=== PATIENT | female | born 1950 | race Caucasian/White ===

== ENCOUNTER 2017-05-15 18:23 | Inpatient (IN) | payer MEDICARE, OTHER ==
[~2017-05-15] VITALS: Ht 162.6 cm; Wt 81.2 kg
[2017-05-15] MEDS ORDERED: LIDOCAINE 2% PF Vial for OR 5 ML VIAL. ONE (20:53)
[2017-05-15] MEDS ORDERED: PROPOFOL 20 ML IV ONE (20:53)
[2017-05-15] MEDS ORDERED: ROCURONIUM 50 MG/5 ML VIAL. ONE (20:54)
[2017-05-15] MEDS ORDERED: ONDANSETRON PF 4 MG/2 ML VIAL. ONE (20:54)
[2017-05-15] MEDS ORDERED: PHENYLEPHRINE in 0.9% NACL PF 1 MG/10 ML DISP.SYRIN. IV ONE (20:54)
[2017-05-15] MEDS ORDERED: fentaNYL PF VIAL 100 MCG/2 ML VIAL ONE ×2 (20:54→23:25)
[2017-05-15] MEDS ORDERED: DEXAMETHASONE SOD PHOS 20 MG/5 ML VIAL. ONE (20:54)
[2017-05-15] MEDS ORDERED: SUCCINYLCHOLINE 200 MG/10 ML VIAL. ONE (21:09)
--- NOTE | 2017-05-15 21:09 | PDOC1 ---
History and Physical Date of Admission Date of Admission DATE: 05/15/17 TIME: 20:58 Identification/Chief Complaint Chief Complaint RUQ pain Problems: Source Source: Chart review, Patient History of Present Illness History of Present Illness Shannon is a 66 yo O2 dependent female with a three day hx of fever, cough, SOA and abdominal pain. Denies nausea or vomiting. States that eating made "the pain worse". Seen in the [facility] ED where a CT was done showing changes consistent with acute cholecystitis. She is brought for cholecystectomy Past Medical History Cardiovascular: No pertinent hx Pulmonary: COPD, Other (O2 dependent) GI: No pertinent hx Psych: Anxiety, Depression Musculoskeletal: Osteoarthritis Renal/: No pertinent hx Past Surgical History Past Surgical History: Total knee replacement, Hysterectomy, Other (shoulder surgery) Family History Family History: No Significant Social History Smoke: Quit ALCOHOL: none Drugs: None Current Medications Current Medications Current Medications Propofol 20 ml @ As Directed STK-MED ONCE IV ; Start 05/15/17 at 20:53; Stop at 20:54; Status DC Lidocaine HCl (Lidocaine Pf 2% Vial) 5 ml STK-MED ONCE .ROUTE ; Start 05/15/17 at 20:53; Stop 05/15/17 at 20:54; Status DC Ondansetron HCl (Zofran) 4 mg STK-MED ONCE .ROUTE ; Start 05/15/17 at 20:54; Stop 05/15/17 at 20:55; Status DC Dexamethasone Sodium Phosphate (Decadron) 20 mg STK-MED ONCE .ROUTE ; Start at 20:54; Stop 05/15/17 at 20:55; Status DC Phenylephrine HCl 1 mg STK-MED ONCE IV ; Start 05/15/17 at 20:54; Stop 05/15/17 at 20:55; Status DC Fentanyl Citrate (Fentanyl 2ml Vial) 100 mcg STK-MED ONCE .ROUTE ; Start at 20:54; Stop 05/15/17 at 20:55; Status DC Rocuronium [place] (Zemuron) 50 mg STK-MED ONCE .ROUTE ; Start 05/15/17 at 20:54 ; Stop 05/15/17 at 20:55; Status DC Allergies Allergies: Coded Allergies: Codeine (Verified Allergy, 05/15/17) ROS General: YES: Other (fever) PSYCHOLOGICAL ROS: YES: Anxiety, Depression HEENT: YES: Visual Changes Respiratory: YES: Cough Gastrointestinal: Yes Abdominal Pain Musculoskeletal: Yes Other (chronic back pain, pain pump in place) Physical Exam General: Alert, moderate distress HEENT: Atraumatic, Other (poor dentition) Lungs: Other (tachypneic, occasional wheeze) Heart: other (increased rate) Breasts: Not examined Abdomen: Other (TTP in the RUQ) Extremities: Other (arthritic changes) Neuro: Normal speech Psych/Mental Status: Other (anxious) Images Images CT of abdomen and pelvis done at [facility] is reviewed VTE Prophylaxis Ordered VTE Prophylaxis Devices: Yes VTE Pharmacological Prophylaxi: No Assessment/Plan Assessment/Plan acute cholecystitis COPD l/s cholecystectomy Explained risks including but not limited to bleeding, infection, injury to bowel, liver or bile ducts with resultant bile leak or bile blockage. Also the possible need for an "open" procedure or diarrhea post op. She will proceed. ALLEN BARTON MD May 15, 2017 21:09
[2017-05-15] MEDS ORDERED: IV RINGERS,LACTATED 1000ML 1,000 ML IV SCH (21:10)
[2017-05-15] MEDS ORDERED: PROCHLORPERAZINE 10 MG/2 ML VIAL. IV PRN (21:15)
[2017-05-15] MEDS ORDERED: LIDOCAINE 1% 1 ML SYRINGE. ID PRN (21:15)
[2017-05-15] MEDS ORDERED: ONDANSETRON PF 4 MG/2 ML VIAL. IV PRN ×3 (21:15→23:15)
[2017-05-15] MEDS ORDERED: fentaNYL PF VIAL 100 MCG/2 ML VIAL IV PRN (21:15)
[2017-05-15] MEDS ORDERED: GLUCAGON,HUMAN RECOMBINANT 1 MG/ML VIAL. ONE (21:24)
[2017-05-15] MEDS ORDERED: IOHEXOL 300 MG/ML 50 ML VIAL. ONE (21:24)
[2017-05-15] MEDS ORDERED: BUPIVACAINE-EPI 0.5%-1:200000 50 ML VIAL. ONE (21:24)
[2017-05-15] MEDS ORDERED: SURGICEL HEMOSTAT 4X8 EACH. ONE (21:24)
[2017-05-15] MEDS: IV NORMAL SALINE 1000ML BAG 1,000 ML IV SCH (21:30)
[2017-05-15] MEDS ORDERED: ACETAMINOPHEN 325 MG TABLET. PO PRN (21:30)
[2017-05-15] MEDS ORDERED: ALBUTEROL SULFATE 2.5 MG/3 ML NEBU. NEB PRN (21:30)
[2017-05-15] MEDS ORDERED: hydrALAZINE 20 MG/ML VIAL. IVP PRN (21:30)
[2017-05-15] MEDS: POTASSIUM CHLORIDE 10MEQ 100 ML IV SCH ×2 (22:00→23:00)
[2017-05-15] MEDS ORDERED: NEOSTIGMINE METHYLSULFATE 5 MG/5 ML SYRINGE. ONE (22:39)
[2017-05-15] MEDS ORDERED: GLYCOPYRROLATE 1 MG/5 ML VIAL. ONE (22:40)
[2017-05-15] MEDS ORDERED: DESFLURANE 61 TO 120 MINUTES IH ONE (22:46)
[2017-05-15] MEDS ORDERED: DEXTROSE 50% 25 GM / 50ML DISP.SYRIN. IV PRN (23:15)
[2017-05-15] MEDS ORDERED: 0.9 % SODIUM CHLORIDE 10 ML DISP.SYRIN. IV PRN (23:15)
[2017-05-15] MEDS ORDERED: diphenhydrAMINE 50 MG/ML VIAL IV PRN (23:15)
[2017-05-15] MEDS ORDERED: ACETAMINOPHEN 500 MG TABLET PO PRN (23:15)
[2017-05-15] MEDS ORDERED: diphenhydrAMINE HCL 25 MG CAPSULE PO PRN (23:15)
[2017-05-15] MEDS: fentaNYL PF VIAL 100 MCG/2 ML VIAL IV PRN ×4 (23:17→23:55)
--- NOTE | 2017-05-15 23:24 | PDOC ---
BRIEF OPERATIVE NOTE Date: May 15, 2017 Pre-Op Diagnosis acute cholecystitis Post-Op Diagnosis gangrenous cholecystitis Procedure Performed l/s cholecystectomy with cholangiograms Surgeon Dominguez Russell CORN DETASSELER Anesthesia Type: General Blood Loss 50cc IV Fluid 500cc Urine Output 75cc Specimens Obtained GB Findings gangrenous cholecystitis, normal grams Complications none OPerative Note Wk # [id number] ALLEN BARTON MD May 15, 2017 23:24
[2017-05-15] MEDS ORDERED: ACETAMINOPHEN 650 MG SUPP.RECT. PR ONE (23:30)
[2017-05-15] MEDS ORDERED: HYDROmorphone 2 MG/ML VIAL ONE (23:39)
[2017-05-15] MEDS: HYDROmorphone 2 MG/ML VIAL IV PRN (23:45)
--- NOTE | 2017-05-15 23:55 | OP ---
DATE OF SURGERY: 05/15/2017 PREOPERATIVE DIAGNOSIS: Acute cholecystitis. POSTOPERATIVE DIAGNOSIS: Gangrenous cholecystitis. PROCEDURE: Laparoscopic cholecystectomy with cholangiogram. SURGEON: Chandan Barton MD SHELVER: Brianna Russell CFA. ANESTHESIA: General endotracheal. ESTIMATED BLOOD LOSS: 50. IV FLUIDS: 500. URINE OUTPUT: 75. INDICATIONS: The patient is a 66-year-old oxygen dependent COPD with a 3-day history of abdominal pain. She was transferred from the [facility] when a CT scan showed acute cholecystitis. OPERATIVE FINDINGS: She had gangrenous cholecystitis with moderate amount of turbid fluid present in the right upper quadrant. Visual inspection of the remainder of the abdomen failed to reveal obvious abnormalities. DESCRIPTION OF PROCEDURE: The patient brought to the operating suite, given a general endotracheal anesthetic. Ferreira catheter placed to dependent drainage and the abdomen prepped and draped in the usual sterile fashion. An infraumbilical incision was infiltrated with local anesthetic, sharply incised, and a 5 mm Visiport used to gain access into the abdominal cavity, taking care to avoid injury to abdominal contents. Pneumoperitoneum established. Camera inserted and inspection carried out with results as noted above. With the table in reverse Trendelenburg rolled to the left, the epigastric, midclavicular, and lateral ports were placed under direct vision. The gallbladder was exposed by gently freeing the omentum from the fundus. This allowed aspiration of approximately 100 mL of bile to allow grasping of the gallbladder and retracting it superolaterally. This allowed exposure of the cystic duct, which was short. It was carefully clipped on the gallbladder side. Cholangiograms were made. These were normal. In light of this, the catheter was removed and the cystic duct was carefully clipped and divided, taking care to avoid injury or compromise of the common duct. An anterior and posterior branch of the cystic artery were isolated, clipped and divided and the gallbladder freed from the bed with cautery and blunt dissection and placed in an EndoCatch bag. Hemostasis obtained in the fossa with cautery, Surgicel, and FloSeal. A 19-Arabic round Mayur drain was brought through the epigastric port out the lateral ports, sewn to the skin with a silk stitch and left in the subhepatic space for postoperative drainage. Table returned to level. Gallbladder delivered through the epigastric incision. Epigastric incision closed with interrupted 0 Vicryl suture. Intra-abdominal pressure decreased to 6 cm of water. No bleeding from the epigastric closure or from the midclavicular port after its removal or from the drain site. Abdomen decompressed, camera slowly removed, no bleeding seen. Skin incisions closed with subcuticular 4-0 Monocryl. Steri-Strips and sterile dressings applied. The patient awakened from her anesthetic and taken to the recovery room in satisfactory condition. CHANDAN BARTON MD DR: SHARAD/valentino JOB#: [id number] / [id number]
[2017-05-16] VITALS (13 sets, daily range): BP systolic 109–133; BP diastolic 61–81
[2017-05-16] MEDS: HYDROmorphone 2 MG/ML VIAL IV PRN ×5 (00:01→20:24)
[2017-05-16] MEDS: POTASSIUM CL 20MEQ-0.45% NACL 1,000 ML IV SCH ×3 (00:25→19:10)
[2017-05-16] MEDS: PIPERACILLIN/TAZOBACTAM 3.375 GM in IV NORMAL SALINE 50ML 50 ML IV SCH ×5 (00:26→23:40)
--- NOTE | 2017-05-16 01:32 | RAD ---
Intraoperative cholangiogram: Reason for examination: Emergent cholecystectomy with gallbladder infection. 3 C-arm views were obtained during intraoperative cholangiogram. Fluoroscopic time was 18 seconds. Cumulative dose was 459.52 mrad. Contrast was administered into the cystic duct. Intraoperative cholangiogram was performed. There is good filling of the common bile duct with reflux into the common hepatic duct. There is normal drainage into the duodenum. No retained stones are identified. IMPRESSION: Normal intraoperative cholangiogram. Electronically signed by: Raven Mejias MD (05/16/2017 1:28 AM) [facility] [place] [place]
--- NOTE | 2017-05-16 03:50 | ACF ---
Admission Forms Criteria GALLBLADDER OR BILE DUCT INFLAMMATION OR STONE Clinical Indications for Admission to Inpatient Care ( Place 'X' for any and all applicable criteria): Admission is indicated for patients with ANY ONE of the following(1)(2)(3)(4)(5) : [ ]I. Acute cholecystitis as indicated by ALL of the following: [ ]a) Right upper quadrant pain, mass, or tenderness [ ]b) Systemic signs of inflammation indicated by ANY ONE of the following: [ ]i) Fever [ ]ii) C-reactive protein level greater than 10 mg/L (95 nmol/L) [ ]iii) White blood cell count greater than 10,000/mm3 (10 x109/L) or less than 4000/mm3 (4 x109/L) [X ]II. Inpatient admission required rather than observation care (Also use Gallbladder or Bile Duct Inflammation or Stone: Observation Care as appropriate) because of ANY ONE of the following: [ ]a) Common bile duct obstruction diagnosed [ ]b) Vomiting that is severe or persistent [ ]c) Severe pain requiring acute inpatient management [ ]d) Signs of intestinal obstruction or peritonitis [A] [ ]e) Severe electrolyte abnormalities requiring inpatient care [ ]f) Absent bowel sounds with complete ileus(8) [ ]g) Hemodynamic instability [ ]h) High fever or infection requiring inpatient admission as indicated by ANY ONE of the following (9): [ ]1) Appropriate outpatient or observation care antimicrobial Treatment. unavailable, not effective, or not feasible [ ]2) Temperature greater than 104.9 degrees F (40.5 degrees C) (oral) [ ]3) Temperature greater than 103.1 degrees F (39.5 degrees C) (oral) or less than 96.8 degrees F (36 degrees C) (rectal) that does not respond to all emergency treatment measures [ ]4) Documented bacteremia [ ]i) IV fluid to replace significant ongoing losses (greater than 3 L/m2 per day) [ ]j) Percutaneous or open drainage (eg, abscess, biliary tract) procedures [X ]k) Immediate inpatient surgery [ ]l) Other condition, treatment or monitoring requiring inpatient admission [ ]III. Acute cholangitis as indicated by ALL of the following(9)(10): [ ]a) Systemic signs of inflammation indicated by ANY ONE of the following: [ ]i) Fever [ ]ii) C-reactive protein level greater than 10 mg/L (95 nmol /L) [ ]iii) White blood cell count greater than 10,000/mm3 (10 x109/L) or less than 4000/mm3 (4 x109/L) [ ]b) Evidence of common bile duct disease indicated by ANY ONE of the following: [ ]i) Total serum bilirubin level greater than or equal to 2 mg/dL (34 micromoles/L) [ ]ii) Liver function test (alkaline phosphatase (ALP), r- glutamyltransferase (GGT), aspartate aminotransferase (AST), or alanine aminotransferase (ALT)) greater than 1.5 times the upper limit of normal[B] [ ]iii) Hepatobiliary imaging showing biliary dilatation or evidence of etiology (eg, stricture, stone, previously placed stent) Extended stay beyond goal length of stay may be needed for (1)(2)): [ ]a) Bacteremia or Hemodynamic instability [ ]b) Cholecystectomy [ ]c) Other surgical procedure(24) [ ]d) Percutaneous or endoscopic ultrasound-guided cholecystostomy The original [facility] content created by [facility] has been revised. The portions of the content which have been revised are identified through the use of italic text or in bold, and [facility] has neither reviewed nor approved the modified material. All other unmodified content is copyright [facility]. Please see references footnoted in the original [facility] edition 2016 Admission Criteria Met?: Yes JULIO PEGUERO May 16, 2017 03:50
[2017-05-16] MEDS: HYDROcodone/APAP 5/325MG 1 TAB TABLET PO PRN ×4 (05:42→23:40)
[2017-05-16 05:59] LABS: BASO % 0 % (0-3); EOS % 0 % (0-3); HEMATOCRIT 37.9 % (36.0-47.0); HEMOGLOBIN 12.4 g/dL (12.0-15.5); LYMPH # 0.5 x10^3/uL (1.0-4.8); LYMPH % 3 % (24-48); MEAN CORPUSCULAR HEMOGLOBIN 30 pg (25-35); MEAN CORPUSCULAR HGB CONC 33 g/dL (31-37); MEAN CORPUSCULAR VOLUME 90 fL (79-100); MONO % 4 % (0-9); NEUT % 93 % (31-73); PLATELET COUNT 125 x10^3/uL (140-400); RED BLOOD COUNT 4.22 x10^6/uL (3.50-5.40); RED CELL DISTRIBUTION WIDTH 15.6 % (11.5-14.5)
[2017-05-16 06:15] LABS: CREATININE 0.6 mg/dL (0.6-1.0); POTASSIUM 4.4 mmol/L (3.5-5.1)
[2017-05-16] MEDS: ALBUTEROL SULFATE 2.5 MG/3 ML NEBU. NEB SCH ×4 (07:16→20:31)
[2017-05-16] MEDS: IV NORMAL SALINE 1000ML BAG 1,000 ML IV SCH (08:21)
[2017-05-16] MEDS: DOCUSATE SODIUM 100 MG CAPSULE. PO SCH ×2 (10:05→21:00)
[2017-05-16] MEDS: ENOXAPARIN 40 MG/0.4 ML SYRINGE. SQ SCH (10:05)
[2017-05-16 10:28] LABS: PLT ESTIMATE DECREASED (ADEQUATE)
--- NOTE | 2017-05-16 11:10 | PDOC1 ---
History and Physical Date of Admission Date of Admission Date of exam 05/16/2017 Chief complaint: Right-sided abdominal pain History of Present Illness History of Present Illness A 66-year-old female patient with history of COPD brought to the [facility] ER with complaints of right-sided abdominal pain for nearly 3 days and fever. Initial imaging studies are suggestive of for acute cholecystitis and I was asked by the ER physician to admit patient for surgical consultation. Upon arrival to the floor, she was emergently taken to the [facility] for laparoscopic cholecystectomy. Today, patient's pain is been not controlled she was requiring IV Dilaudid for pain control. She did not have any fevers however she had elevated WBC 20,000 at the time of presentation which has been improving today it is at 16,000. Patient not able to provide me good history about her past condition as she is in pain and also no family members available at the time of my examination. Past Medical History Cardiovascular: No pertinent hx Pulmonary: COPD, Other (O2 dependent) GI: No pertinent hx Psych: Anxiety, Depression Renal/: No pertinent hx Past Surgical History Past Surgical History: Total knee replacement, Hysterectomy, Other (shoulder surgery) Family History Family History: No Significant Social History Smoke: Quit ALCOHOL: none Drugs: None Current Medications Current Medications Current Medications Medications (Trade) Dose Ordered Sig/Arianne Start Time Stop Time Status Last Admin Dose Admin Acetaminophen (Acetaminophen Supp) 650 mg 1X ONCE 05/15/17 23:30 05/15/17 23:31 DC Acetaminophen (Tylenol) 500 mg PRN Q6HRS PRN 05/15/17 23:15 Acetaminophen/ Hydrocodone Bitart (Lortab 5/325) 2 tab PRN Q4HRS PRN 05/15/17 23:15 05/16/17 10:03 2 TAB Albuterol Sulfate (Ventolin Neb Soln) 2.5 mg RTQID 05/16/17 08:00 05/16/17 07:16 2.5 MG Bupivacaine HCl/ Epinephrine Bitart (Marcaine-Epi 0.5%-[id number]) 50 ml STK-MED ONCE 05/15/17 21:24 05/15/17 21:25 DC 05/15/17 21:57 10 ML Cellulose 1 each STK-MED ONCE 05/15/17 21:24 05/15/17 21:25 DC 05/15/17 21:57 1 EACH Desflurane (Suprane) 60 ml STK-MED ONCE 05/15/17 22:46 05/15/17 22:47 DC Dexamethasone Sodium Phosphate (Decadron) 20 mg STK-MED ONCE 05/15/17 20:54 05/15/17 20:55 DC Dextrose (Dextrose 50%-Water Syringe) 12.5 gm PRN Q15MIN PRN 05/15/17 23:15 Diphenhydramine HCl (Benadryl) 25 mg PRN Q6HRS PRN 05/15/17 23:15 Docusate Sodium (Colace) 100 mg BID 05/16/17 09:00 05/16/17 10:05 100 MG Enoxaparin Sodium (Lovenox 40mg Syringe) 40 mg Q24H 05/16/17 09:00 05/16/17 10:05 40 MG Fentanyl Citrate (Fentanyl 2ml Vial) 100 mcg STK-MED ONCE 05/15/17 23:25 05/15/17 23:26 DC Glucagon (Glucagen) 1 mg STK-MED ONCE 05/15/17 21:24 05/15/17 21:25 DC Glycopyrrolate (Robinul) 1 mg STK-MED ONCE 05/15/17 22:40 05/15/17 22:41 DC Hydralazine HCl (Apresoline) 10 mg PRN Q4HRS PRN 05/15/17 21:30 Hydromorphone HCl (Dilaudid) 0.5 mg PRN Q10MIN PRN 05/16/17 00:00 05/16/17 23:59 05/16/17 00:01 0.5 MG Iohexol (Omnipaque 300 Mg/ml) 50 ml STK-MED ONCE 05/15/17 21:24 05/15/17 21:25 DC 05/15/17 21:57 10 ML Lidocaine HCl 2 ml PRN 1X PRN 05/15/17 21:15 05/16/17 21:14 Lidocaine HCl (Lidocaine Pf 2% Vial) 5 ml STK-MED ONCE 05/15/17 20:53 05/15/17 20:54 DC Metronidazole 100 ml @ 100 mls/hr 1X PREOP PRN 05/15/17 21:00 05/17/17 20:59 Neostigmine Methylsulfate 5 mg STK-MED ONCE 05/15/17 22:39 05/15/17 22:40 DC Ondansetron HCl (Zofran) 4 mg PRN Q6HRS PRN 05/15/17 23:15 Phenylephrine HCl 1 mg STK-MED ONCE 05/15/17 20:54 05/15/17 20:55 DC Piperacillin Sod/ Tazobactam Sod 3.375 gm/Sodium Chloride 50 ml @ 100 mls/hr Q6HRS 05/16/17 00:00 05/17/17 00:00 05/16/17 05:41 100 MLS/HR Potassium Chloride/Sodium Chloride 1,000 ml @ 100 mls/hr Q10H 05/15/17 23:10 05/16/17 00:25 100 MLS/HR Potassium Chloride 100 ml @ 100 mls/hr Q1H 05/15/17 22:00 05/15/17 23:59 DC Prochlorperazine Edisylate (Compazine) 5 mg PACU PRN PRN 05/15/17 21:15 05/16/17 21:14 05/15/17 23:29 5 MG Propofol 20 ml @ As Directed STK-MED ONCE 05/15/17 20:53 05/15/17 20:54 DC Ringer's Solution 1,000 ml @ 30 mls/hr Q24H 05/15/17 21:10 05/16/17 09:09 DC Rocuronium [place] (Zemuron) 50 mg STK-MED ONCE 05/15/17 20:54 05/15/17 20:55 DC Sodium Chloride (Normal Saline Flush) 3 ml QSHIFT PRN 05/15/17 23:15 Succinylcholine Chloride (Anectine) 200 mg STK-MED ONCE 05/15/17 21:09 05/15/17 21:10 DC Allergies Allergies Allergies Coded Allergies Type Severity Reaction Last Updated Verified codeine Allergy Intermediate 05/15/17 Yes ROS Review of System CONSTITUTIONAL: fever EYES: No recent changes SKIN: No rash or itching CARDIOVASCULAR: No chest pain, syncope, palpitations, or edema RESPIRATORY: No SOB or cough GASTROINTESTINAL: Abdominal pain and right-sided NEUROLOGICAL: No headaches or weakness ENDOCRINE: No cold or heat intolerance GENITOURINARY: No urgency or frequency of urination MUSCULOSKELETAL: No back pain or joint pain LYMPHATICS: No enlarged lymph nodes PSYCHIATRIC: No anxiety or depression Physical Exam Physical Exam GEN.: apparent distress. Alert and oriented. His 3 HEENT: Head is normocephalic, atraumatic, poor oral hygiene NECK: Supple. LUNGS: Clear to auscultation. HEART: RRR, S1, S2 present. Peripheral pulses intact ABDOMEN: Soft, right upper quadrant tenderness, GABRIELA drain present EXTREMITIES: Without any cyanosis. NEUROLOGIC: Normal speech, normal tone PSYCHIATRIC: Normal affect, normal mood. Anxious and painful SKIN: Surgical incisions tender Vitals Vitals Vital Signs Date Time Temp Pulse Resp B/P (MAP) Pulse Ox O2 Delivery O2 Flow Rate FiO2 05/16/17 10:04 16 96 Nasal Cannula 3.0 05/16/17 07:00 97.5 88 114/67 (83) 97.5 Labs Labs Laboratory Tests Test 05/16/17 05:20 White Blood Count 16.0 x10^3/uL (4.0-11.0) Red Blood Count 4.22 x10^6/uL (3.50-5.40) Hemoglobin 12.4 g/dL (12.0-15.5) Hematocrit 37.9 % (36.0-47.0) Mean Corpuscular Volume 90 fL (79-100) Mean Corpuscular Hemoglobin 30 pg (25-35) Mean Corpuscular Hemoglobin Concent 33 g/dL (31-37) Red Cell Distribution Width 15.6 % (11.5-14.5) Platelet Count 125 x10^3/uL (140-400) Neutrophils (%) (Auto) 93 % (31-73) Lymphocytes (%) (Auto) 3 % (24-48) Monocytes (%) (Auto) 4 % (0-9) Eosinophils (%) (Auto) 0 % (0-3) Basophils (%) (Auto) 0 % (0-3) Neutrophils # (Auto) 14.8 x10^3uL (1.8-7.7) Lymphocytes # (Auto) 0.5 x10^3/uL (1.0-4.8) Monocytes # (Auto) 0.6 x10^3/uL (0.0-1.1) Eosinophils # (Auto) 0.0 x10^3/uL (0.0-0.7) Basophils # (Auto) 0.0 x10^3/uL (0.0-0.2) Segmented Neutrophils % 85 % (35-66) Band Neutrophils % 9 % (0-9) Lymphocytes % 4 % (24-48) Monocytes % 2 % (0-10) Platelet Estimate Decreased (ADEQUATE) Sodium Level 140 mmol/L (136-145) Potassium Level 4.4 mmol/L (3.5-5.1) Chloride Level 104 mmol/L (98-107) Carbon Dioxide Level 27 mmol/L (21-32) Anion Gap 9 (6-14) Blood Urea Nitrogen 8 mg/dL (7-20) Creatinine 0.6 mg/dL (0.6-1.0) Estimated GFR (Cockcroft-Gault) 100.0 Glucose Level 147 mg/dL (70-99) Calcium Level 8.0 mg/dL (8.5-10.1) Laboratory Tests Test 05/16/17 05:20 White Blood Count 16.0 x10^3/uL (4.0-11.0) Red Blood Count 4.22 x10^6/uL (3.50-5.40) Hemoglobin 12.4 g/dL (12.0-15.5) Hematocrit 37.9 % (36.0-47.0) Mean Corpuscular Volume 90 fL (79-100) Mean Corpuscular Hemoglobin 30 pg (25-35) Mean Corpuscular Hemoglobin Concent 33 g/dL (31-37) Red Cell Distribution Width 15.6 % (11.5-14.5) Platelet Count 125 x10^3/uL (140-400) Neutrophils (%) (Auto) 93 % (31-73) Lymphocytes (%) (Auto) 3 % (24-48) Monocytes (%) (Auto) 4 % (0-9) Eosinophils (%) (Auto) 0 % (0-3) Basophils (%) (Auto) 0 % (0-3) Neutrophils # (Auto) 14.8 x10^3uL (1.8-7.7) Lymphocytes # (Auto) 0.5 x10^3/uL (1.0-4.8) Monocytes # (Auto) 0.6 x10^3/uL (0.0-1.1) Eosinophils # (Auto) 0.0 x10^3/uL (0.0-0.7) Basophils # (Auto) 0.0 x10^3/uL (0.0-0.2) Segmented Neutrophils % 85 % (35-66) Band Neutrophils % 9 % (0-9) Lymphocytes % 4 % (24-48) Monocytes % 2 % (0-10) Platelet Estimate Decreased (ADEQUATE) Sodium Level 140 mmol/L (136-145) Potassium Level 4.4 mmol/L (3.5-5.1) Chloride Level 104 mmol/L (98-107) Carbon Dioxide Level 27 mmol/L (21-32) Anion Gap 9 (6-14) Blood Urea Nitrogen 8 mg/dL (7-20) Creatinine 0.6 mg/dL (0.6-1.0) Estimated GFR (Cockcroft-Gault) 100.0 Glucose Level 147 mg/dL (70-99) Calcium Level 8.0 mg/dL (8.5-10.1) VTE Prophylaxis Ordered VTE Prophylaxis Devices: Yes VTE Pharmacological Prophylaxi: No Assessment/Plan Assessment/Plan Gangrenous cholecystitis present on admission status post cholecystectomy laparoscopic Thrombocytopenia Plan Pain control with IV Dilaudid 0.5 mg every 3 hours with oral hydrocodone the avoid CO2 narcosis, Continue flange turner WBC closely Continue current antibiotics IV Zosyn The patient develops any fevers may need to repeat a CT of the abdomen Monitor WBC Possible chronic respiratory failure is independent No DVT prophylaxis due to low platelets As needed nebulizations Supplemental oxygen to keep saturations are 90% Labs reviewed and records reviewed from [facility], case discussed with the ER physician KELSI TY MD May 16, 2017 11:10
--- NOTE | 2017-05-16 11:40 | PDOC ---
SURGICAL PROGRESS NOTE Subjective eating pudding and tomato soup appears less uncomfortable Vital Signs Vital Signs Date Time Temp Pulse Resp B/P (MAP) Pulse Ox O2 Delivery O2 Flow Rate FiO2 05/16/17 11:35 Nasal Cannula 3.0 05/16/17 10:04 16 96 05/16/17 07:00 97.5 88 114/67 (83) 97.5 I&O Intake and Output 05/16/17 07:00 Intake Total 1100 ml Output Total 350 ml Balance 750 ml Intake IV Total 1100 ml Output Urine Total 300 ml Drainage Total 50 ml PATIENT HAS A CEVALLOS: Yes (d/c today) General: Alert Abdomen: Soft, Other (small amount of serosanguineous GABRIELA output) Psych/Mental Status: Other (anxious) Labs Laboratory Tests Test 05/16/17 05:20 White Blood Count 16.0 x10^3/uL (4.0-11.0) Red Blood Count 4.22 x10^6/uL (3.50-5.40) Hemoglobin 12.4 g/dL (12.0-15.5) Hematocrit 37.9 % (36.0-47.0) Mean Corpuscular Volume 90 fL (79-100) Mean Corpuscular Hemoglobin 30 pg (25-35) Mean Corpuscular Hemoglobin Concent 33 g/dL (31-37) Red Cell Distribution Width 15.6 % (11.5-14.5) Platelet Count 125 x10^3/uL (140-400) Neutrophils (%) (Auto) 93 % (31-73) Lymphocytes (%) (Auto) 3 % (24-48) Monocytes (%) (Auto) 4 % (0-9) Eosinophils (%) (Auto) 0 % (0-3) Basophils (%) (Auto) 0 % (0-3) Neutrophils # (Auto) 14.8 x10^3uL (1.8-7.7) Lymphocytes # (Auto) 0.5 x10^3/uL (1.0-4.8) Monocytes # (Auto) 0.6 x10^3/uL (0.0-1.1) Eosinophils # (Auto) 0.0 x10^3/uL (0.0-0.7) Basophils # (Auto) 0.0 x10^3/uL (0.0-0.2) Segmented Neutrophils % 85 % (35-66) Band Neutrophils % 9 % (0-9) Lymphocytes % 4 % (24-48) Monocytes % 2 % (0-10) Platelet Estimate Decreased (ADEQUATE) Sodium Level 140 mmol/L (136-145) Potassium Level 4.4 mmol/L (3.5-5.1) Chloride Level 104 mmol/L (98-107) Carbon Dioxide Level 27 mmol/L (21-32) Anion Gap 9 (6-14) Blood Urea Nitrogen 8 mg/dL (7-20) Creatinine 0.6 mg/dL (0.6-1.0) Estimated GFR (Cockcroft-Gault) 100.0 Glucose Level 147 mg/dL (70-99) Calcium Level 8.0 mg/dL (8.5-10.1) Laboratory Tests Test 05/16/17 05:20 White Blood Count 16.0 x10^3/uL (4.0-11.0) Red Blood Count 4.22 x10^6/uL (3.50-5.40) Hemoglobin 12.4 g/dL (12.0-15.5) Hematocrit 37.9 % (36.0-47.0) Mean Corpuscular Volume 90 fL (79-100) Mean Corpuscular Hemoglobin 30 pg (25-35) Mean Corpuscular Hemoglobin Concent 33 g/dL (31-37) Red Cell Distribution Width 15.6 % (11.5-14.5) Platelet Count 125 x10^3/uL (140-400) Neutrophils (%) (Auto) 93 % (31-73) Lymphocytes (%) (Auto) 3 % (24-48) Monocytes (%) (Auto) 4 % (0-9) Eosinophils (%) (Auto) 0 % (0-3) Basophils (%) (Auto) 0 % (0-3) Neutrophils # (Auto) 14.8 x10^3uL (1.8-7.7) Lymphocytes # (Auto) 0.5 x10^3/uL (1.0-4.8) Monocytes # (Auto) 0.6 x10^3/uL (0.0-1.1) Eosinophils # (Auto) 0.0 x10^3/uL (0.0-0.7) Basophils # (Auto) 0.0 x10^3/uL (0.0-0.2) Segmented Neutrophils % 85 % (35-66) Band Neutrophils % 9 % (0-9) Lymphocytes % 4 % (24-48) Monocytes % 2 % (0-10) Platelet Estimate Decreased (ADEQUATE) Sodium Level 140 mmol/L (136-145) Potassium Level 4.4 mmol/L (3.5-5.1) Chloride Level 104 mmol/L (98-107) Carbon Dioxide Level 27 mmol/L (21-32) Anion Gap 9 (6-14) Blood Urea Nitrogen 8 mg/dL (7-20) Creatinine 0.6 mg/dL (0.6-1.0) Estimated GFR (Cockcroft-Gault) 100.0 Glucose Level 147 mg/dL (70-99) Calcium Level 8.0 mg/dL (8.5-10.1) Assessment/Plan POD 1 elli for gangrenous cholecystitis ambulate d/c cevallos Problems: ALLEN BARTON MD May 16, 2017 11:40
[2017-05-17] MEDS: IV NORMAL SALINE 1000ML BAG 1,000 ML IV SCH (00:10)
[2017-05-17] MEDS: HYDROmorphone 2 MG/ML VIAL IV PRN ×2 (02:37→09:45)
[2017-05-17 03:00] VITALS: BP 135/84
[2017-05-17 05:04] LABS: BASO % 0 % (0-3); EOS % 0 % (0-3); HEMATOCRIT 33.5 % (36.0-47.0); HEMOGLOBIN 11.7 g/dL (12.0-15.5); LYMPH # 0.6 x10^3/uL (1.0-4.8); LYMPH % 4 % (24-48); MEAN CORPUSCULAR HEMOGLOBIN 30 pg (25-35); MEAN CORPUSCULAR HGB CONC 35 g/dL (31-37); MEAN CORPUSCULAR VOLUME 87 fL (79-100); MONO % 5 % (0-9); NEUT % 91 % (31-73); PLATELET COUNT 146 x10^3/uL (140-400); RED BLOOD COUNT 3.86 x10^6/uL (3.50-5.40); RED CELL DISTRIBUTION WIDTH 15.1 % (11.5-14.5); WHITE BLOOD COUNT 15.9 x10^3/uL (4.0-11.0)
[2017-05-17] MEDS: POTASSIUM CL 20MEQ-0.45% NACL 1,000 ML IV SCH (05:10)
[2017-05-17 05:58] LABS: ALBUMIN 2.3 g/dL (3.4-5.0); ALBUMIN/GLOBULIN RATIO 0.6 (1.0-1.7); CALCIUM 8.4 mg/dL (8.5-10.1); CREATININE 0.5 mg/dL (0.6-1.0); GFR 123.4; POTASSIUM 3.8 mmol/L (3.5-5.1); TOTAL BILIRUBIN 0.4 mg/dL (0.2-1.0); TOTAL PROTEIN 6.4 g/dL (6.4-8.2)
[2017-05-17] MEDS: ALBUTEROL SULFATE 2.5 MG/3 ML NEBU. NEB SCH ×2 (07:11→11:13)
[2017-05-17 07:55] VITALS: BP 158/86
[2017-05-17] MEDS ORDERED: MULT-246 PO (08:31)
[2017-05-17] MEDS ORDERED: [UNRECOGNIZED DRUG - REMARK] (08:31)
[2017-05-17] MEDS ORDERED: [UNRECOGNIZED DRUG - REMARK] (08:31)
[2017-05-17] MEDS ORDERED: ALPR0.5T6 PO (08:31)
[2017-05-17] MEDS ORDERED: HYDR-2766 PO (08:31)
[2017-05-17] MEDS ORDERED: OXYC30TA PO (08:31)
[2017-05-17] MEDS ORDERED: PREG50CA PO ×2 (08:31)
[2017-05-17] MEDS: ENOXAPARIN 40 MG/0.4 ML SYRINGE. SQ SCH (09:00)
[2017-05-17] MEDS: DOCUSATE SODIUM 100 MG CAPSULE. PO SCH ×2 (09:44→21:15)
[2017-05-17] MEDS: ALPRAZolam 0.5 MG TABLET PO PRN ×2 (09:51→21:15)
[2017-05-17 10:47] VITALS: BP 141/83
[2017-05-17] MEDS ORDERED: HYDROmorphone 2 MG/ML VIAL IV PRN (12:30)
--- NOTE | 2017-05-17 12:33 | PDOC ---
PROGRESS NOTES Chief Complaint Chief Complaint Gangrenous cholecystitis present on admission status post cholecystectomy laparoscopic Thrombocytopenia COPD, stable rheumatoid arthritis OA, mult joint problems, fibromyalgia, History of Present Illness History of Present Illness Pain control with IV Dilaudid increase to 1 mg every 3 hours Continue telemetry s/p abx gen surg following WBC better PT andOT change nebs to ipra/albuterol She asked me to call her son, Reese, , message left Vitals Vitals Vital Signs Date Time Temp Pulse Resp B/P (MAP) Pulse Ox O2 Delivery O2 Flow Rate FiO2 05/17/17 11:13 96 Nasal Cannula 3.0 05/17/17 10:47 97.9 87 20 141/83 (102) 97.9 Physical Exam General: Alert, Oriented X3, Cooperative, mild distress Heart: Regular rate, Normal S1, No murmurs Lungs: Clear Abdomen: Soft, Other (small amount of serosanguineous GABRIELA output) Extremities: No clubbing, No cyanosis, Other (arthritic changes) Skin: No rashes, No breakdown Labs LABS Laboratory Tests Test 05/17/17 04:20 White Blood Count 15.9 x10^3/uL (4.0-11.0) Red Blood Count 3.86 x10^6/uL (3.50-5.40) Hemoglobin 11.7 g/dL (12.0-15.5) Hematocrit 33.5 % (36.0-47.0) Mean Corpuscular Volume 87 fL (79-100) Mean Corpuscular Hemoglobin 30 pg (25-35) Mean Corpuscular Hemoglobin Concent 35 g/dL (31-37) Red Cell Distribution Width 15.1 % (11.5-14.5) Platelet Count 146 x10^3/uL (140-400) Neutrophils (%) (Auto) 91 % (31-73) Lymphocytes (%) (Auto) 4 % (24-48) Monocytes (%) (Auto) 5 % (0-9) Eosinophils (%) (Auto) 0 % (0-3) Basophils (%) (Auto) 0 % (0-3) Neutrophils # (Auto) 14.5 x10^3uL (1.8-7.7) Lymphocytes # (Auto) 0.6 x10^3/uL (1.0-4.8) Monocytes # (Auto) 0.8 x10^3/uL (0.0-1.1) Eosinophils # (Auto) 0.0 x10^3/uL (0.0-0.7) Basophils # (Auto) 0.0 x10^3/uL (0.0-0.2) Sodium Level 140 mmol/L (136-145) Potassium Level 3.8 mmol/L (3.5-5.1) Chloride Level 106 mmol/L (98-107) Carbon Dioxide Level 27 mmol/L (21-32) Anion Gap 7 (6-14) Blood Urea Nitrogen 9 mg/dL (7-20) Creatinine 0.5 mg/dL (0.6-1.0) Estimated GFR (Cockcroft-Gault) 123.4 BUN/Creatinine Ratio 18 (6-20) Glucose Level 125 mg/dL (70-99) Calcium Level 8.4 mg/dL (8.5-10.1) Total Bilirubin 0.4 mg/dL (0.2-1.0) Aspartate Amino Transf (AST/SGOT) 16 U/L (15-37) Alanine Aminotransferase (ALT/SGPT) 14 U/L (14-59) Alkaline Phosphatase 55 U/L (46-116) Total Protein 6.4 g/dL (6.4-8.2) Albumin 2.3 g/dL (3.4-5.0) Albumin/Globulin Ratio 0.6 (1.0-1.7) Review of Systems Review of Systems abd pain, lethargy chronic joint pain and weakness Assessment and Plan Assessmemt and Plan OOb to chair pain control Pt and OT Problems: Comment Review of Relevant I have reviewed the following items ruba (where applicable) has been applied. Labs Laboratory Tests Test 05/16/17 05:20 05/17/17 04:20 White Blood Count 16.0 x10^3/uL (4.0-11.0) 15.9 x10^3/uL (4.0-11.0) Red Blood Count 4.22 x10^6/uL (3.50-5.40) 3.86 x10^6/uL (3.50-5.40) Hemoglobin 12.4 g/dL (12.0-15.5) 11.7 g/dL (12.0-15.5) Hematocrit 37.9 % (36.0-47.0) 33.5 % (36.0-47.0) Mean Corpuscular Volume 90 fL (79-100) 87 fL (79-100) Mean Corpuscular Hemoglobin 30 pg (25-35) 30 pg (25-35) Mean Corpuscular Hemoglobin Concent 33 g/dL (31-37) 35 g/dL (31-37) Red Cell Distribution Width 15.6 % (11.5-14.5) 15.1 % (11.5-14.5) Platelet Count 125 x10^3/uL (140-400) 146 x10^3/uL (140-400) Neutrophils (%) (Auto) 93 % (31-73) 91 % (31-73) Lymphocytes (%) (Auto) 3 % (24-48) 4 % (24-48) Monocytes (%) (Auto) 4 % (0-9) 5 % (0-9) Eosinophils (%) (Auto) 0 % (0-3) 0 % (0-3) Basophils (%) (Auto) 0 % (0-3) 0 % (0-3) Neutrophils # (Auto) 14.8 x10^3uL (1.8-7.7) 14.5 x10^3uL (1.8-7.7) Lymphocytes # (Auto) 0.5 x10^3/uL (1.0-4.8) 0.6 x10^3/uL (1.0-4.8) Monocytes # (Auto) 0.6 x10^3/uL (0.0-1.1) 0.8 x10^3/uL (0.0-1.1) Eosinophils # (Auto) 0.0 x10^3/uL (0.0-0.7) 0.0 x10^3/uL (0.0-0.7) Basophils # (Auto) 0.0 x10^3/uL (0.0-0.2) 0.0 x10^3/uL (0.0-0.2) Segmented Neutrophils % 85 % (35-66) Band Neutrophils % 9 % (0-9) Lymphocytes % 4 % (24-48) Monocytes % 2 % (0-10) Platelet Estimate Decreased (ADEQUATE) Sodium Level 140 mmol/L (136-145) 140 mmol/L (136-145) Potassium Level 4.4 mmol/L (3.5-5.1) 3.8 mmol/L (3.5-5.1) Chloride Level 104 mmol/L (98-107) 106 mmol/L (98-107) Carbon Dioxide Level 27 mmol/L (21-32) 27 mmol/L (21-32) Anion Gap 9 (6-14) 7 (6-14) Blood Urea Nitrogen 8 mg/dL (7-20) 9 mg/dL (7-20) Creatinine 0.6 mg/dL (0.6-1.0) 0.5 mg/dL (0.6-1.0) Estimated GFR (Cockcroft-Gault) 100.0 123.4 Glucose Level 147 mg/dL (70-99) 125 mg/dL (70-99) Calcium Level 8.0 mg/dL (8.5-10.1) 8.4 mg/dL (8.5-10.1) BUN/Creatinine Ratio 18 (6-20) Total Bilirubin 0.4 mg/dL (0.2-1.0) Aspartate Amino Transf (AST/SGOT) 16 U/L (15-37) Alanine Aminotransferase (ALT/SGPT) 14 U/L (14-59) Alkaline Phosphatase 55 U/L (46-116) Total Protein 6.4 g/dL (6.4-8.2) Albumin 2.3 g/dL (3.4-5.0) Albumin/Globulin Ratio 0.6 (1.0-1.7) Laboratory Tests Test 05/17/17 04:20 White Blood Count 15.9 x10^3/uL (4.0-11.0) Red Blood Count 3.86 x10^6/uL (3.50-5.40) Hemoglobin 11.7 g/dL (12.0-15.5) Hematocrit 33.5 % (36.0-47.0) Mean Corpuscular Volume 87 fL (79-100) Mean Corpuscular Hemoglobin 30 pg (25-35) Mean Corpuscular Hemoglobin Concent 35 g/dL (31-37) Red Cell Distribution Width 15.1 % (11.5-14.5) Platelet Count 146 x10^3/uL (140-400) Neutrophils (%) (Auto) 91 % (31-73) Lymphocytes (%) (Auto) 4 % (24-48) Monocytes (%) (Auto) 5 % (0-9) Eosinophils (%) (Auto) 0 % (0-3) Basophils (%) (Auto) 0 % (0-3) Neutrophils # (Auto) 14.5 x10^3uL (1.8-7.7) Lymphocytes # (Auto) 0.6 x10^3/uL (1.0-4.8) Monocytes # (Auto) 0.8 x10^3/uL (0.0-1.1) Eosinophils # (Auto) 0.0 x10^3/uL (0.0-0.7) Basophils # (Auto) 0.0 x10^3/uL (0.0-0.2) Sodium Level 140 mmol/L (136-145) Potassium Level 3.8 mmol/L (3.5-5.1) Chloride Level 106 mmol/L (98-107) Carbon Dioxide Level 27 mmol/L (21-32) Anion Gap 7 (6-14) Blood Urea Nitrogen 9 mg/dL (7-20) Creatinine 0.5 mg/dL (0.6-1.0) Estimated GFR (Cockcroft-Gault) 123.4 BUN/Creatinine Ratio 18 (6-20) Glucose Level 125 mg/dL (70-99) Calcium Level 8.4 mg/dL (8.5-10.1) Total Bilirubin 0.4 mg/dL (0.2-1.0) Aspartate Amino Transf (AST/SGOT) 16 U/L (15-37) Alanine Aminotransferase (ALT/SGPT) 14 U/L (14-59) Alkaline Phosphatase 55 U/L (46-116) Total Protein 6.4 g/dL (6.4-8.2) Albumin 2.3 g/dL (3.4-5.0) Albumin/Globulin Ratio 0.6 (1.0-1.7) Medications Current Medications Propofol 20 ml @ As Directed STK-MED ONCE IV ; Start 05/15/17 at 20:53; Stop at 20:54; Status DC Lidocaine HCl (Lidocaine Pf 2% Vial) 5 ml STK-MED ONCE .ROUTE ; Start 05/15/17 at 20:53; Stop 05/15/17 at 20:54; Status DC Ondansetron HCl (Zofran) 4 mg STK-MED ONCE .ROUTE ; Start 05/15/17 at 20:54; Stop 05/15/17 at 20:55; Status DC Dexamethasone Sodium Phosphate (Decadron) 20 mg STK-MED ONCE .ROUTE ; Start at 20:54; Stop 05/15/17 at 20:55; Status DC Phenylephrine HCl 1 mg STK-MED ONCE IV ; Start 05/15/17 at 20:54; Stop 05/15/17 at 20:55; Status DC Fentanyl Citrate (Fentanyl 2ml Vial) 100 mcg STK-MED ONCE .ROUTE ; Start at 20:54; Stop 05/15/17 at 20:55; Status DC Rocuronium [place] (Zemuron) 50 mg STK-MED ONCE .ROUTE ; Start 05/15/17 at 20:54 ; Stop 05/15/17 at 20:55; Status DC Metronidazole 100 ml @ 100 mls/hr 1X PREOP PRN IV prophylaxis; Start 05/15/17 at 21:00; Stop 05/17/17 at 20:59 Succinylcholine Chloride (Anectine) 200 mg STK-MED ONCE .ROUTE ; Start 05/15/17 at 21:09; Stop 05/15/17 at 21:10; Status DC Ondansetron HCl (Zofran) 4 mg PRN Q6HRS PRN IV NAUSEA/VOMITING; Start 05/15/17 at 21:15; Stop 05/16/17 at 21:14; Status DC Fentanyl Citrate (Fentanyl 2ml Vial) 25 mcg PRN Q5MIN PRN IV MILD PAIN; Start 05/15/17 at 21:15; Stop 05/16/17 at 21:14; Status DC Fentanyl Citrate (Fentanyl 2ml Vial) 50 mcg PRN Q5MIN PRN IV MODERATE PAIN Last administered on 05/15/17t 23:55; Start 05/15/17 at 21:15; Stop 05/16/17 at 21:14; Status DC Ringer's Solution 1,000 ml @ 30 mls/hr Q24H IV ; Start 05/15/17 at 21:10; Stop 05/16/17 at 09:09; Status DC Lidocaine HCl 2 ml PRN 1X PRN ID PRIOR TO IV START; Start 05/15/17 at 21:15; Stop 05/16/17 at 21:14; Status DC Prochlorperazine Edisylate (Compazine) 5 mg PACU PRN PRN IV NAUSEA, MRX1 Last administered on 05/15/17 23:29; Start 05/15/17 at 21:15; Stop 05/16/17 at 21:14 ; Status DC Sodium Chloride 1,000 ml @ 75 mls/hr [id number] IV ; Start 05/15/17 at 21:30; Stop 05/17/17 at 08:57; Status DC Ondansetron HCl (Zofran) 4 mg PRN Q6HRS PRN IV NAUSEA/VOMITING; Start 05/15/17 at 21:30; Stop 05/16/17 at 16:09; Status DC Acetaminophen (Tylenol) 325 mg PRN Q6HRS PRN PO MILD PAIN / TEMP; Start at 21:30; Stop 05/16/17 at 16:08; Status DC Hydralazine HCl (Apresoline) 10 mg PRN Q4HRS PRN IVP ELEVATED BP, SEE COMMENTS ; Start 05/15/17 at 21:30 Albuterol Sulfate (Ventolin Neb Soln) 2.5 mg PRN Q4HRS PRN NEB SHORTNESS OF BREATH Last administered on 05/15/17 23:15; Start 05/15/17 at 21:30 Cellulose 1 each STK-MED ONCE .ROUTE Last administered on 05/15/17 21:57; Start 05/15/17 at 21:24; Stop 05/15/17 at 21:25; Status DC Iohexol (Omnipaque 300 Mg/ml) 50 ml STK-MED ONCE .ROUTE Last administered on 21:57; Start 05/15/17 at 21:24; Stop 05/15/17 at 21:25; Status DC Bupivacaine HCl/ Epinephrine Bitart (Marcaine-Epi 0.5%-[id number]) 50 ml STK-MED ONCE .ROUTE Last administered on 05/15/17 21:57; Start 05/15/17 at 21:24; Stop 05/15/17 at 21:25; Status DC Glucagon (Glucagen) 1 mg STK-MED ONCE .ROUTE ; Start 05/15/17 at 21:24; Stop at 21:25; Status DC Potassium Chloride 100 ml @ 100 mls/hr Q1H IV ; Start 05/15/17 at 22:00; Stop 05/15/17 at 23:59; Status DC Neostigmine Methylsulfate 5 mg STK-MED ONCE .ROUTE ; Start 05/15/17 at 22:39; Stop 05/15/17 at 22:40; Status DC Glycopyrrolate (Robinul) 1 mg STK-MED ONCE .ROUTE ; Start 05/15/17 at 22:40; Stop 05/15/17 at 22:41; Status DC Desflurane (Suprane) 60 ml STK-MED ONCE IH ; Start 05/15/17 at 22:46; Stop 05/15 at 22:47; Status DC Acetaminophen (Acetaminophen Supp) 650 mg 1X ONCE DE ; Start 05/15/17 at 23:30 ; Stop 05/15/17 at 23:31; Status DC Diphenhydramine HCl (Benadryl) 25 mg PRN Q6HRS PRN PO ITCHING; Start 05/15/17 at 23:15 Diphenhydramine HCl (Benadryl) 25 mg PRN Q6HRS PRN IV ITCHING Last administered on 05/17/17 00:01; Start 05/15/17 at 23:15 Enoxaparin Sodium (Lovenox 40mg Syringe) 40 mg Q24H SQ Last administered on 10:05; Start 05/16/17 at 09:00 Sodium Chloride (Normal Saline Flush) 3 ml QSHIFT PRN IV AFTER MEDS AND BLOOD DRAWS; Start 05/15/17 at 23:15 Potassium Chloride/Sodium Chloride 1,000 ml @ 100 mls/hr Q10H IV Last administered on 05/16/17 12:43; Start 05/15/17 at 23:10; Stop 05/17/17 at 08:57 ; Status DC Dextrose (Dextrose 50%-Water Syringe) 12.5 gm PRN Q15MIN PRN IV SEE COMMENTS; Start 05/15/17 at 23:15 Acetaminophen/ Hydrocodone Bitart (Lortab 5/325) 1 tab PRN Q4HRS PRN PO MILD PAIN Last administered on 05/16/17 17:45; Start 05/15/17 at 23:15 Acetaminophen/ Hydrocodone Bitart (Lortab 5/325) 2 tab PRN Q4HRS PRN PO MODERATE PAIN, SEVERE PAIN Last administered on 05/16/17 23:40; Start 05/15/17 at 23:15 Hydromorphone HCl (Dilaudid) 0.5 mg PRN Q3HRS PRN IV SEVERE PAIN Last administered on 05/17/17 09:45; Start 05/15/17 at 23:15 Docusate Sodium (Colace) 100 mg BID PO Last administered on 05/17/17 09:44; Start 05/16/17 at 09:00 Ondansetron HCl (Zofran) 4 mg PRN Q6HRS PRN IV NAUESA, 1ST CHOICE; Start at 23:15 Acetaminophen (Tylenol) 500 mg PRN Q6HRS PRN PO MILD PAIN / TEMP; Start at 23:15 Piperacillin Sod/ Tazobactam Sod 3.375 gm/Sodium Chloride 50 ml @ 100 mls/hr Q6HRS IV Last administered on 05/16/17 23:40; Start 05/16/17 at 00:00; Stop at 00:00; Status DC Albuterol Sulfate (Ventolin Neb Soln) 2.5 mg RTQID NEB Last administered on 11:13; Start 05/16/17 at 08:00 Fentanyl Citrate (Fentanyl 2ml Vial) 100 mcg STK-MED ONCE .ROUTE ; Start at 23:25; Stop 05/15/17 at 23:26; Status DC Hydromorphone HCl (Dilaudid) 2 mg STK-MED ONCE .ROUTE ; Start 05/15/17 at 23:39 ; Stop 05/15/17 at 23:40; Status DC Hydromorphone HCl (Dilaudid) 0.5 mg PRN Q10MIN PRN IV Moderate to severe pain Last administered on 05/16/17 00:01; Start 05/16/17 at 00:00; Stop 05/16/17 at 23:59; Status DC Alprazolam (Xanax) 0.5 mg PRN TID PRN PO ANXIETY / AGITATION Last administered on 05/17/17t 09:51; Start 05/16/17 at 20:45 Active Scripts Active Reported Oxycodone Hcl 30 Mg Tablet 1 Tab PO HS [effusion] DAILY Alprazolam 0.5 Mg Tablet 1 Tab PO TID [troush] DAILY Multi-Vitamin Daily (Multivitamin) 1 Each Tablet 1 Each PO QID Lyrica (Pregabalin) 50 Mg Capsule 50 Mg PO HS Lyrica (Pregabalin) 50 Mg Capsule 25 Mg PO [id number] Hydrocodone-Apap 10-325 (Hydrocodone Bit/Acetaminophen) 1 Each Tablet 1 Tab PO TID Vitals/I & O Vital Sign - Last 24 Hours 05/16/17 05/16/17 05/16/17 05/16/17 13:56 14:27 15:00 15:24 Temp 96.1 96.1 Pulse 95 Resp 19 21 B/P (MAP) 133/78 (96) Pulse Ox 94 94 95 O2 Delivery Room Air Venturi Mask Nasal Cannula O2 Flow Rate 5.0 3.0 05/16/17 05/16/17 05/16/17 05/16/17 17:45 18:45 19:00 20:00 Temp 97.4 97.4 Pulse 94 Resp 19 12 18 B/P (MAP) 131/81 (98) Pulse Ox 94 94 95 O2 Delivery Room Air Nasal Cannula Nasal Cannula Nasal Cannula O2 Flow Rate 4.0 4.0 2.0 05/16/17 05/16/17 05/17/17 05/17/17 20:32 23:00 03:00 07:13 Temp 98.2 97.8 98.2 97.8 Pulse 95 75 Resp 18 18 B/P (MAP) 123/81 (95) 135/84 (101) Pulse Ox 95 95 93 97 O2 Delivery Nasal Cannula Nasal Cannula Nasal Cannula Nasal Cannula O2 Flow Rate 3.0 4.0 3.0 05/17/17 05/17/17 05/17/17 05/17/17 07:55 09:45 10:15 10:47 Temp 96.4 97.9 96.4 97.9 Pulse 94 87 Resp 28 22 16 20 B/P (MAP) 158/86 (110) 141/83 (102) Pulse Ox 97 93 96 O2 Delivery Nasal Cannula Nasal Cannula Nasal Cannula Nasal Cannula O2 Flow Rate 2.0 3.0 05/17/17 11:13 Pulse Ox 96 O2 Delivery Nasal Cannula O2 Flow Rate 3.0 Intake and Output 05/16/17 05/16/17 05/17/17 15:00 23:00 07:00 Intake Total 200 ml Output Total 440 ml 100 ml Balance -440 ml 100 ml STEFFI CULP MD May 17, 2017 12:33
--- NOTE | 2017-05-17 12:37 | PDOC ---
FRANKIE ALVARADO [employer] OPERATOR 05/17/17 1236: SURGICAL PROGRESS NOTE Subjective moderate pain to RUQ, right shoulder poor appetite Vital Signs Vital Signs Date Time Temp Pulse Resp B/P (MAP) Pulse Ox O2 Delivery O2 Flow Rate FiO2 05/17/17 11:13 96 Nasal Cannula 3.0 05/17/17 10:47 97.9 87 20 141/83 (102) 97.9 I&O Intake and Output 05/17/17 06:59 Intake Total 200 ml Output Total 540 ml Balance -340 ml Intake Oral 200 ml Output Urine Total 450 ml Drainage Total 90 ml # Voids 4 # Bowel Movements 1 General: Alert, Oriented X3, Cooperative, No acute distress Abdomen: Soft, Other (incisional TTP, GABRIELA dark serosang ) Labs Laboratory Tests Test 05/16/17 05:20 05/17/17 04:20 White Blood Count 16.0 x10^3/uL (4.0-11.0) 15.9 x10^3/uL (4.0-11.0) Red Blood Count 4.22 x10^6/uL (3.50-5.40) 3.86 x10^6/uL (3.50-5.40) Hemoglobin 12.4 g/dL (12.0-15.5) 11.7 g/dL (12.0-15.5) Hematocrit 37.9 % (36.0-47.0) 33.5 % (36.0-47.0) Mean Corpuscular Volume 90 fL (79-100) 87 fL (79-100) Mean Corpuscular Hemoglobin 30 pg (25-35) 30 pg (25-35) Mean Corpuscular Hemoglobin Concent 33 g/dL (31-37) 35 g/dL (31-37) Red Cell Distribution Width 15.6 % (11.5-14.5) 15.1 % (11.5-14.5) Platelet Count 125 x10^3/uL (140-400) 146 x10^3/uL (140-400) Neutrophils (%) (Auto) 93 % (31-73) 91 % (31-73) Lymphocytes (%) (Auto) 3 % (24-48) 4 % (24-48) Monocytes (%) (Auto) 4 % (0-9) 5 % (0-9) Eosinophils (%) (Auto) 0 % (0-3) 0 % (0-3) Basophils (%) (Auto) 0 % (0-3) 0 % (0-3) Neutrophils # (Auto) 14.8 x10^3uL (1.8-7.7) 14.5 x10^3uL (1.8-7.7) Lymphocytes # (Auto) 0.5 x10^3/uL (1.0-4.8) 0.6 x10^3/uL (1.0-4.8) Monocytes # (Auto) 0.6 x10^3/uL (0.0-1.1) 0.8 x10^3/uL (0.0-1.1) Eosinophils # (Auto) 0.0 x10^3/uL (0.0-0.7) 0.0 x10^3/uL (0.0-0.7) Basophils # (Auto) 0.0 x10^3/uL (0.0-0.2) 0.0 x10^3/uL (0.0-0.2) Segmented Neutrophils % 85 % (35-66) Band Neutrophils % 9 % (0-9) Lymphocytes % 4 % (24-48) Monocytes % 2 % (0-10) Platelet Estimate Decreased (ADEQUATE) Sodium Level 140 mmol/L (136-145) 140 mmol/L (136-145) Potassium Level 4.4 mmol/L (3.5-5.1) 3.8 mmol/L (3.5-5.1) Chloride Level 104 mmol/L (98-107) 106 mmol/L (98-107) Carbon Dioxide Level 27 mmol/L (21-32) 27 mmol/L (21-32) Anion Gap 9 (6-14) 7 (6-14) Blood Urea Nitrogen 8 mg/dL (7-20) 9 mg/dL (7-20) Creatinine 0.6 mg/dL (0.6-1.0) 0.5 mg/dL (0.6-1.0) Estimated GFR (Cockcroft-Gault) 100.0 123.4 Glucose Level 147 mg/dL (70-99) 125 mg/dL (70-99) Calcium Level 8.0 mg/dL (8.5-10.1) 8.4 mg/dL (8.5-10.1) BUN/Creatinine Ratio 18 (6-20) Total Bilirubin 0.4 mg/dL (0.2-1.0) Aspartate Amino Transf (AST/SGOT) 16 U/L (15-37) Alanine Aminotransferase (ALT/SGPT) 14 U/L (14-59) Alkaline Phosphatase 55 U/L (46-116) Total Protein 6.4 g/dL (6.4-8.2) Albumin 2.3 g/dL (3.4-5.0) Albumin/Globulin Ratio 0.6 (1.0-1.7) Laboratory Tests Test 05/17/17 04:20 White Blood Count 15.9 x10^3/uL (4.0-11.0) Red Blood Count 3.86 x10^6/uL (3.50-5.40) Hemoglobin 11.7 g/dL (12.0-15.5) Hematocrit 33.5 % (36.0-47.0) Mean Corpuscular Volume 87 fL (79-100) Mean Corpuscular Hemoglobin 30 pg (25-35) Mean Corpuscular Hemoglobin Concent 35 g/dL (31-37) Red Cell Distribution Width 15.1 % (11.5-14.5) Platelet Count 146 x10^3/uL (140-400) Neutrophils (%) (Auto) 91 % (31-73) Lymphocytes (%) (Auto) 4 % (24-48) Monocytes (%) (Auto) 5 % (0-9) Eosinophils (%) (Auto) 0 % (0-3) Basophils (%) (Auto) 0 % (0-3) Neutrophils # (Auto) 14.5 x10^3uL (1.8-7.7) Lymphocytes # (Auto) 0.6 x10^3/uL (1.0-4.8) Monocytes # (Auto) 0.8 x10^3/uL (0.0-1.1) Eosinophils # (Auto) 0.0 x10^3/uL (0.0-0.7) Basophils # (Auto) 0.0 x10^3/uL (0.0-0.2) Sodium Level 140 mmol/L (136-145) Potassium Level 3.8 mmol/L (3.5-5.1) Chloride Level 106 mmol/L (98-107) Carbon Dioxide Level 27 mmol/L (21-32) Anion Gap 7 (6-14) Blood Urea Nitrogen 9 mg/dL (7-20) Creatinine 0.5 mg/dL (0.6-1.0) Estimated GFR (Cockcroft-Gault) 123.4 BUN/Creatinine Ratio 18 (6-20) Glucose Level 125 mg/dL (70-99) Calcium Level 8.4 mg/dL (8.5-10.1) Total Bilirubin 0.4 mg/dL (0.2-1.0) Aspartate Amino Transf (AST/SGOT) 16 U/L (15-37) Alanine Aminotransferase (ALT/SGPT) 14 U/L (14-59) Alkaline Phosphatase 55 U/L (46-116) Total Protein 6.4 g/dL (6.4-8.2) Albumin 2.3 g/dL (3.4-5.0) Albumin/Globulin Ratio 0.6 (1.0-1.7) Problem List s/p lap elli Assessment/Plan continue drain ambulate wbc 15.9--will add abx postop Problems: ALLEN BARTON MD 05/17/17 1658: SURGICAL PROGRESS NOTE Assessment/Plan pt seen per RN Shannon is having emotional issues, suicidal ideations surgically stable continue supportive care Problems: FRANKIE ALVARADO [employer] OPERATOR May 17, 2017 12:36 ALLEN BARTON MD May 17, 2017 16:58
[2017-05-17] MEDS: BUDESONIDE 0.5 MG/2 ML NEBU. NEB SCH ×2 (13:00→18:01)
[2017-05-17] MEDS: IPRATRPIUM/ALBUTEROL 0.5/2.5MG 3 ML NEBU. NEB SCH ×3 (13:00→18:01)
[2017-05-17] MEDS: PIPERACILLIN/TAZOBACTAM 3.375 GM in IV NORMAL SALINE 50ML 50 ML IV SCH ×2 (14:00→19:15)
[2017-05-17 14:30] VITALS: BP 144/83
[2017-05-17] MEDS: HYDROcodone/APAP 5/325MG 1 TAB TABLET PO PRN ×2 (16:22→21:15)
[2017-05-17] MEDS: KETOROLAC 15 MG/ML VIAL. IV PRN ×2 (16:22→23:56)
[2017-05-17 19:00] VITALS: BP_SYST 125; BP_SYST 142; BP_DIAS 55; BP_DIAS 84
[2017-05-17 23:00] VITALS: BP 135/76
[2017-05-18] MEDS: PIPERACILLIN/TAZOBACTAM 3.375 GM in IV NORMAL SALINE 50ML 50 ML IV SCH ×5 (00:06→23:29)
[2017-05-18 03:00] VITALS: BP 148/79
[2017-05-18 05:18] LABS: BASO % 0 % (0-3); EOS % 1 % (0-3); HEMATOCRIT 33.3 % (36.0-47.0); HEMOGLOBIN 11.1 g/dL (12.0-15.5); LYMPH # 1.3 x10^3/uL (1.0-4.8); LYMPH % 15 % (24-48); MEAN CORPUSCULAR HEMOGLOBIN 30 pg (25-35); MEAN CORPUSCULAR HGB CONC 33 g/dL (31-37); MEAN CORPUSCULAR VOLUME 89 fL (79-100); MONO % 8 % (0-9); NEUT % 77 % (31-73); PLATELET COUNT 182 x10^3/uL (140-400); RED BLOOD COUNT 3.75 x10^6/uL (3.50-5.40); RED CELL DISTRIBUTION WIDTH 15.4 % (11.5-14.5); WHITE BLOOD COUNT 8.6 x10^3/uL (4.0-11.0)
[2017-05-18 05:53] LABS: CALCIUM 8.1 mg/dL (8.5-10.1); CREATININE 0.5 mg/dL (0.6-1.0); GFR 123.4; POTASSIUM 3.4 mmol/L (3.5-5.1)
[2017-05-18 07:00] VITALS: BP 145/79
[2017-05-18] MEDS: BUDESONIDE 0.5 MG/2 ML NEBU. NEB SCH ×2 (07:05→19:25)
[2017-05-18] MEDS: IPRATRPIUM/ALBUTEROL 0.5/2.5MG 3 ML NEBU. NEB SCH ×4 (07:05→19:25)
[2017-05-18] MEDS: DOCUSATE SODIUM 100 MG CAPSULE. PO SCH ×2 (07:53→21:01)
[2017-05-18] MEDS: ALPRAZolam 0.5 MG TABLET PO PRN ×3 (07:53→21:01)
[2017-05-18] MEDS: HYDROcodone/APAP 5/325MG 1 TAB TABLET PO PRN ×4 (07:54→21:02)
[2017-05-18] MEDS: ENOXAPARIN 40 MG/0.4 ML SYRINGE. SQ SCH (07:57)
[2017-05-18 11:00] VITALS: BP 149/80
[2017-05-18] MEDS ORDERED: POTASSIUM CHLORIDE 20 MEQ TABLET.ER. PO ONE (11:30)
--- NOTE | 2017-05-18 12:45 | PDOC ---
FRANKIE ALVARADO [employer] ARCHITECT 05/18/17 1245: SURGICAL PROGRESS NOTE Subjective Still having pain No emesis, tolerating diet Vital Signs Vital Signs Date Time Temp Pulse Resp B/P (MAP) Pulse Ox O2 Delivery O2 Flow Rate FiO2 05/18/17 12:23 26 Room Air 05/18/17 11:00 97.7 80 149/80 (103) 97 97.7 05/18/17 08:54 3.0 I&O Intake and Output 05/18/17 07:00 Output Total 165 ml Balance -165 ml Output Urine Total 100 ml Drainage Total 65 ml # Voids 5 General: Alert, Oriented X3, Cooperative Abdomen: Soft, Other (incisional TTP, kylee dark serosang ) Labs Laboratory Tests Test 05/17/17 04:20 05/18/17 03:58 White Blood Count 15.9 x10^3/uL (4.0-11.0) 8.6 x10^3/uL (4.0-11.0) Red Blood Count 3.86 x10^6/uL (3.50-5.40) 3.75 x10^6/uL (3.50-5.40) Hemoglobin 11.7 g/dL (12.0-15.5) 11.1 g/dL (12.0-15.5) Hematocrit 33.5 % (36.0-47.0) 33.3 % (36.0-47.0) Mean Corpuscular Volume 87 fL (79-100) 89 fL (79-100) Mean Corpuscular Hemoglobin 30 pg (25-35) 30 pg (25-35) Mean Corpuscular Hemoglobin Concent 35 g/dL (31-37) 33 g/dL (31-37) Red Cell Distribution Width 15.1 % (11.5-14.5) 15.4 % (11.5-14.5) Platelet Count 146 x10^3/uL (140-400) 182 x10^3/uL (140-400) Neutrophils (%) (Auto) 91 % (31-73) 77 % (31-73) Lymphocytes (%) (Auto) 4 % (24-48) 15 % (24-48) Monocytes (%) (Auto) 5 % (0-9) 8 % (0-9) Eosinophils (%) (Auto) 0 % (0-3) 1 % (0-3) Basophils (%) (Auto) 0 % (0-3) 0 % (0-3) Neutrophils # (Auto) 14.5 x10^3uL (1.8-7.7) 6.6 x10^3uL (1.8-7.7) Lymphocytes # (Auto) 0.6 x10^3/uL (1.0-4.8) 1.3 x10^3/uL (1.0-4.8) Monocytes # (Auto) 0.8 x10^3/uL (0.0-1.1) 0.7 x10^3/uL (0.0-1.1) Eosinophils # (Auto) 0.0 x10^3/uL (0.0-0.7) 0.1 x10^3/uL (0.0-0.7) Basophils # (Auto) 0.0 x10^3/uL (0.0-0.2) 0.0 x10^3/uL (0.0-0.2) Sodium Level 140 mmol/L (136-145) 141 mmol/L (136-145) Potassium Level 3.8 mmol/L (3.5-5.1) 3.4 mmol/L (3.5-5.1) Chloride Level 106 mmol/L (98-107) 105 mmol/L (98-107) Carbon Dioxide Level 27 mmol/L (21-32) 28 mmol/L (21-32) Anion Gap 7 (6-14) 8 (6-14) Blood Urea Nitrogen 9 mg/dL (7-20) 11 mg/dL (7-20) Creatinine 0.5 mg/dL (0.6-1.0) 0.5 mg/dL (0.6-1.0) Estimated GFR (Cockcroft-Gault) 123.4 123.4 BUN/Creatinine Ratio 18 (6-20) Glucose Level 125 mg/dL (70-99) 90 mg/dL (70-99) Calcium Level 8.4 mg/dL (8.5-10.1) 8.1 mg/dL (8.5-10.1) Total Bilirubin 0.4 mg/dL (0.2-1.0) Aspartate Amino Transf (AST/SGOT) 16 U/L (15-37) Alanine Aminotransferase (ALT/SGPT) 14 U/L (14-59) Alkaline Phosphatase 55 U/L (46-116) Total Protein 6.4 g/dL (6.4-8.2) Albumin 2.3 g/dL (3.4-5.0) Albumin/Globulin Ratio 0.6 (1.0-1.7) Laboratory Tests Test 05/18/17 03:58 White Blood Count 8.6 x10^3/uL (4.0-11.0) Red Blood Count 3.75 x10^6/uL (3.50-5.40) Hemoglobin 11.1 g/dL (12.0-15.5) Hematocrit 33.3 % (36.0-47.0) Mean Corpuscular Volume 89 fL (79-100) Mean Corpuscular Hemoglobin 30 pg (25-35) Mean Corpuscular Hemoglobin Concent 33 g/dL (31-37) Red Cell Distribution Width 15.4 % (11.5-14.5) Platelet Count 182 x10^3/uL (140-400) Neutrophils (%) (Auto) 77 % (31-73) Lymphocytes (%) (Auto) 15 % (24-48) Monocytes (%) (Auto) 8 % (0-9) Eosinophils (%) (Auto) 1 % (0-3) Basophils (%) (Auto) 0 % (0-3) Neutrophils # (Auto) 6.6 x10^3uL (1.8-7.7) Lymphocytes # (Auto) 1.3 x10^3/uL (1.0-4.8) Monocytes # (Auto) 0.7 x10^3/uL (0.0-1.1) Eosinophils # (Auto) 0.1 x10^3/uL (0.0-0.7) Basophils # (Auto) 0.0 x10^3/uL (0.0-0.2) Sodium Level 141 mmol/L (136-145) Potassium Level 3.4 mmol/L (3.5-5.1) Chloride Level 105 mmol/L (98-107) Carbon Dioxide Level 28 mmol/L (21-32) Anion Gap 8 (6-14) Blood Urea Nitrogen 11 mg/dL (7-20) Creatinine 0.5 mg/dL (0.6-1.0) Estimated GFR (Cockcroft-Gault) 123.4 Glucose Level 90 mg/dL (70-99) Calcium Level 8.1 mg/dL (8.5-10.1) Problem List s/p lap elli wbc normal pain management Problems: ALLEN BARTON MD 05/18/17 1324: SURGICAL PROGRESS NOTE Assessment/Plan pt seen agree with above home soon from surgical standpoint Problems: FRANKIE ALVARADO APRN May 18, 2017 12:45 ALLEN BARTON MD May 18, 2017 13:24
--- NOTE | 2017-05-18 15:12 | PDOC ---
PROGRESS NOTES Chief Complaint Chief Complaint Gangrenous cholecystitis present on admission status post cholecystectomy laparoscopic Thrombocytopenia COPD, stable rheumatoid arthritis OA, mult joint problems, fibromyalgia, History of Present Illness History of Present Illness Pain control with IV Dilaudid increase to 1 mg every 3 hours Continue telemetry s/p abx gen surg following WBC better PT andOT change nebs to ipra/albuterol Vitals Vitals Vital Signs Date Time Temp Pulse Resp B/P (MAP) Pulse Ox O2 Delivery O2 Flow Rate FiO2 05/18/17 13:23 28 Nasal Cannula 3.0 05/18/17 12:42 96 05/18/17 11:00 97.7 80 149/80 (103) 97.7 Physical Exam General: Alert, Oriented X3, Cooperative Heart: Regular rate, Normal S1, No murmurs Lungs: Clear Abdomen: Soft, Other (incisional TTP, kylee dark serosang ) Extremities: No clubbing, No cyanosis, Other (arthritic changes) Skin: No rashes, No breakdown Labs LABS Laboratory Tests Test 05/18/17 03:58 White Blood Count 8.6 x10^3/uL (4.0-11.0) Red Blood Count 3.75 x10^6/uL (3.50-5.40) Hemoglobin 11.1 g/dL (12.0-15.5) Hematocrit 33.3 % (36.0-47.0) Mean Corpuscular Volume 89 fL (79-100) Mean Corpuscular Hemoglobin 30 pg (25-35) Mean Corpuscular Hemoglobin Concent 33 g/dL (31-37) Red Cell Distribution Width 15.4 % (11.5-14.5) Platelet Count 182 x10^3/uL (140-400) Neutrophils (%) (Auto) 77 % (31-73) Lymphocytes (%) (Auto) 15 % (24-48) Monocytes (%) (Auto) 8 % (0-9) Eosinophils (%) (Auto) 1 % (0-3) Basophils (%) (Auto) 0 % (0-3) Neutrophils # (Auto) 6.6 x10^3uL (1.8-7.7) Lymphocytes # (Auto) 1.3 x10^3/uL (1.0-4.8) Monocytes # (Auto) 0.7 x10^3/uL (0.0-1.1) Eosinophils # (Auto) 0.1 x10^3/uL (0.0-0.7) Basophils # (Auto) 0.0 x10^3/uL (0.0-0.2) Sodium Level 141 mmol/L (136-145) Potassium Level 3.4 mmol/L (3.5-5.1) Chloride Level 105 mmol/L (98-107) Carbon Dioxide Level 28 mmol/L (21-32) Anion Gap 8 (6-14) Blood Urea Nitrogen 11 mg/dL (7-20) Creatinine 0.5 mg/dL (0.6-1.0) Estimated GFR (Cockcroft-Gault) 123.4 Glucose Level 90 mg/dL (70-99) Calcium Level 8.1 mg/dL (8.5-10.1) Review of Systems Review of Systems nausea + anxiety poor po intake reported pain when awakened, Comment Review of Relevant I have reviewed the following items ruba (where applicable) has been applied. Labs Laboratory Tests Test 05/17/17 04:20 05/18/17 03:58 White Blood Count 15.9 x10^3/uL (4.0-11.0) 8.6 x10^3/uL (4.0-11.0) Red Blood Count 3.86 x10^6/uL (3.50-5.40) 3.75 x10^6/uL (3.50-5.40) Hemoglobin 11.7 g/dL (12.0-15.5) 11.1 g/dL (12.0-15.5) Hematocrit 33.5 % (36.0-47.0) 33.3 % (36.0-47.0) Mean Corpuscular Volume 87 fL (79-100) 89 fL (79-100) Mean Corpuscular Hemoglobin 30 pg (25-35) 30 pg (25-35) Mean Corpuscular Hemoglobin Concent 35 g/dL (31-37) 33 g/dL (31-37) Red Cell Distribution Width 15.1 % (11.5-14.5) 15.4 % (11.5-14.5) Platelet Count 146 x10^3/uL (140-400) 182 x10^3/uL (140-400) Neutrophils (%) (Auto) 91 % (31-73) 77 % (31-73) Lymphocytes (%) (Auto) 4 % (24-48) 15 % (24-48) Monocytes (%) (Auto) 5 % (0-9) 8 % (0-9) Eosinophils (%) (Auto) 0 % (0-3) 1 % (0-3) Basophils (%) (Auto) 0 % (0-3) 0 % (0-3) Neutrophils # (Auto) 14.5 x10^3uL (1.8-7.7) 6.6 x10^3uL (1.8-7.7) Lymphocytes # (Auto) 0.6 x10^3/uL (1.0-4.8) 1.3 x10^3/uL (1.0-4.8) Monocytes # (Auto) 0.8 x10^3/uL (0.0-1.1) 0.7 x10^3/uL (0.0-1.1) Eosinophils # (Auto) 0.0 x10^3/uL (0.0-0.7) 0.1 x10^3/uL (0.0-0.7) Basophils # (Auto) 0.0 x10^3/uL (0.0-0.2) 0.0 x10^3/uL (0.0-0.2) Sodium Level 140 mmol/L (136-145) 141 mmol/L (136-145) Potassium Level 3.8 mmol/L (3.5-5.1) 3.4 mmol/L (3.5-5.1) Chloride Level 106 mmol/L (98-107) 105 mmol/L (98-107) Carbon Dioxide Level 27 mmol/L (21-32) 28 mmol/L (21-32) Anion Gap 7 (6-14) 8 (6-14) Blood Urea Nitrogen 9 mg/dL (7-20) 11 mg/dL (7-20) Creatinine 0.5 mg/dL (0.6-1.0) 0.5 mg/dL (0.6-1.0) Estimated GFR (Cockcroft-Gault) 123.4 123.4 BUN/Creatinine Ratio 18 (6-20) Glucose Level 125 mg/dL (70-99) 90 mg/dL (70-99) Calcium Level 8.4 mg/dL (8.5-10.1) 8.1 mg/dL (8.5-10.1) Total Bilirubin 0.4 mg/dL (0.2-1.0) Aspartate Amino Transf (AST/SGOT) 16 U/L (15-37) Alanine Aminotransferase (ALT/SGPT) 14 U/L (14-59) Alkaline Phosphatase 55 U/L (46-116) Total Protein 6.4 g/dL (6.4-8.2) Albumin 2.3 g/dL (3.4-5.0) Albumin/Globulin Ratio 0.6 (1.0-1.7) Laboratory Tests Test 05/18/17 03:58 White Blood Count 8.6 x10^3/uL (4.0-11.0) Red Blood Count 3.75 x10^6/uL (3.50-5.40) Hemoglobin 11.1 g/dL (12.0-15.5) Hematocrit 33.3 % (36.0-47.0) Mean Corpuscular Volume 89 fL (79-100) Mean Corpuscular Hemoglobin 30 pg (25-35) Mean Corpuscular Hemoglobin Concent 33 g/dL (31-37) Red Cell Distribution Width 15.4 % (11.5-14.5) Platelet Count 182 x10^3/uL (140-400) Neutrophils (%) (Auto) 77 % (31-73) Lymphocytes (%) (Auto) 15 % (24-48) Monocytes (%) (Auto) 8 % (0-9) Eosinophils (%) (Auto) 1 % (0-3) Basophils (%) (Auto) 0 % (0-3) Neutrophils # (Auto) 6.6 x10^3uL (1.8-7.7) Lymphocytes # (Auto) 1.3 x10^3/uL (1.0-4.8) Monocytes # (Auto) 0.7 x10^3/uL (0.0-1.1) Eosinophils # (Auto) 0.1 x10^3/uL (0.0-0.7) Basophils # (Auto) 0.0 x10^3/uL (0.0-0.2) Sodium Level 141 mmol/L (136-145) Potassium Level 3.4 mmol/L (3.5-5.1) Chloride Level 105 mmol/L (98-107) Carbon Dioxide Level 28 mmol/L (21-32) Anion Gap 8 (6-14) Blood Urea Nitrogen 11 mg/dL (7-20) Creatinine 0.5 mg/dL (0.6-1.0) Estimated GFR (Cockcroft-Gault) 123.4 Glucose Level 90 mg/dL (70-99) Calcium Level 8.1 mg/dL (8.5-10.1) Medications Current Medications Propofol 20 ml @ As Directed STK-MED ONCE IV ; Start 05/15/17 at 20:53; Stop at 20:54; Status DC Lidocaine HCl (Lidocaine Pf 2% Vial) 5 ml STK-MED ONCE .ROUTE ; Start 05/15/17 at 20:53; Stop 05/15/17 at 20:54; Status DC Ondansetron HCl (Zofran) 4 mg STK-MED ONCE .ROUTE ; Start 05/15/17 at 20:54; Stop 05/15/17 at 20:55; Status DC Dexamethasone Sodium Phosphate (Decadron) 20 mg STK-MED ONCE .ROUTE ; Start at 20:54; Stop 05/15/17 at 20:55; Status DC Phenylephrine HCl 1 mg STK-MED ONCE IV ; Start 05/15/17 at 20:54; Stop 05/15/17 at 20:55; Status DC Fentanyl Citrate (Fentanyl 2ml Vial) 100 mcg STK-MED ONCE .ROUTE ; Start at 20:54; Stop 05/15/17 at 20:55; Status DC Rocuronium Dixie (Zemuron) 50 mg STK-MED ONCE .ROUTE ; Start 05/15/17 at 20:54 ; Stop 05/15/17 at 20:55; Status DC Metronidazole 100 ml @ 100 mls/hr 1X PREOP PRN IV prophylaxis; Start 05/15/17 at 21:00; Stop 05/17/17 at 20:59; Status DC Succinylcholine Chloride (Anectine) 200 mg STK-MED ONCE .ROUTE ; Start 05/15/17 at 21:09; Stop 05/15/17 at 21:10; Status DC Ondansetron HCl (Zofran) 4 mg PRN Q6HRS PRN IV NAUSEA/VOMITING; Start 05/15/17 at 21:15; Stop 05/16/17 at 21:14; Status DC Fentanyl Citrate (Fentanyl 2ml Vial) 25 mcg PRN Q5MIN PRN IV MILD PAIN; Start 05/15/17 at 21:15; Stop 05/16/17 at 21:14; Status DC Fentanyl Citrate (Fentanyl 2ml Vial) 50 mcg PRN Q5MIN PRN IV MODERATE PAIN Last administered on 05/15/17t 23:55; Start 05/15/17 at 21:15; Stop 05/16/17 at 21:14; Status DC Ringer's Solution 1,000 ml @ 30 mls/hr Q24H IV ; Start 05/15/17 at 21:10; Stop 05/16/17 at 09:09; Status DC Lidocaine HCl 2 ml PRN 1X PRN ID PRIOR TO IV START; Start 05/15/17 at 21:15; Stop 05/16/17 at 21:14; Status DC Prochlorperazine Edisylate (Compazine) 5 mg PACU PRN PRN IV NAUSEA, MRX1 Last administered on 05/15/17t 23:29; Start 05/15/17 at 21:15; Stop 05/16/17 at 21:14 ; Status DC Sodium Chloride 1,000 ml @ 75 mls/hr [id number] IV ; Start 05/15/17 at 21:30; Stop 05/17/17 at 08:57; Status DC Ondansetron HCl (Zofran) 4 mg PRN Q6HRS PRN IV NAUSEA/VOMITING; Start 05/15/17 at 21:30; Stop 05/16/17 at 16:09; Status DC Acetaminophen (Tylenol) 325 mg PRN Q6HRS PRN PO MILD PAIN / TEMP; Start at 21:30; Stop 05/16/17 at 16:08; Status DC Hydralazine HCl (Apresoline) 10 mg PRN Q4HRS PRN IVP ELEVATED BP, SEE COMMENTS ; Start 05/15/17 at 21:30 Albuterol Sulfate (Ventolin Neb Soln) 2.5 mg PRN Q4HRS PRN NEB SHORTNESS OF BREATH Last administered on 05/15/17 23:15; Start 05/15/17 at 21:30 Cellulose 1 each STK-MED ONCE .ROUTE Last administered on 05/15/17 21:57; Start 05/15/17 at 21:24; Stop 05/15/17 at 21:25; Status DC Iohexol (Omnipaque 300 Mg/ml) 50 ml STK-MED ONCE .ROUTE Last administered on 21:57; Start 05/15/17 at 21:24; Stop 05/15/17 at 21:25; Status DC Bupivacaine HCl/ Epinephrine Bitart (Marcaine-Epi 0.5%-1:[id number]) 50 ml STK-MED ONCE .ROUTE Last administered on 05/15/17 21:57; Start 05/15/17 at 21:24; Stop 05/15/17 at 21:25; Status DC Glucagon (Glucagen) 1 mg STK-MED ONCE .ROUTE ; Start 05/15/17 at 21:24; Stop at 21:25; Status DC Potassium Chloride 100 ml @ 100 mls/hr Q1H IV ; Start 05/15/17 at 22:00; Stop 05/15/17 at 23:59; Status DC Neostigmine Methylsulfate 5 mg STK-MED ONCE .ROUTE ; Start 05/15/17 at 22:39; Stop 05/15/17 at 22:40; Status DC Glycopyrrolate (Robinul) 1 mg STK-MED ONCE .ROUTE ; Start 05/15/17 at 22:40; Stop 05/15/17 at 22:41; Status DC Desflurane (Suprane) 60 ml STK-MED ONCE IH ; Start 05/15/17 at 22:46; Stop 05/15 at 22:47; Status DC Acetaminophen (Acetaminophen Supp) 650 mg 1X ONCE NV ; Start 05/15/17 at 23:30 ; Stop 05/15/17 at 23:31; Status DC Diphenhydramine HCl (Benadryl) 25 mg PRN Q6HRS PRN PO ITCHING; Start 05/15/17 at 23:15 Diphenhydramine HCl (Benadryl) 25 mg PRN Q6HRS PRN IV ITCHING Last administered on 05/17/17 00:01; Start 05/15/17 at 23:15 Enoxaparin Sodium (Lovenox 40mg Syringe) 40 mg Q24H SQ Last administered on 10:05; Start 05/16/17 at 09:00 Sodium Chloride (Normal Saline Flush) 3 ml QSHIFT PRN IV AFTER MEDS AND BLOOD DRAWS; Start 05/15/17 at 23:15 Potassium Chloride/Sodium Chloride 1,000 ml @ 100 mls/hr Q10H IV Last administered on 05/16/17 12:43; Start 05/15/17 at 23:10; Stop 05/17/17 at 08:57 ; Status DC Dextrose (Dextrose 50%-Water Syringe) 12.5 gm PRN Q15MIN PRN IV SEE COMMENTS; Start 05/15/17 at 23:15 Acetaminophen/ Hydrocodone Bitart (Lortab 5/325) 1 tab PRN Q4HRS PRN PO MILD PAIN Last administered on 05/17/17 21:15; Start 05/15/17 at 23:15 Acetaminophen/ Hydrocodone Bitart (Lortab 5/325) 2 tab PRN Q4HRS PRN PO MODERATE PAIN, SEVERE PAIN Last administered on 05/18/17 12:23; Start 05/15/17 at 23:15 Hydromorphone HCl (Dilaudid) 0.5 mg PRN Q3HRS PRN IV SEVERE PAIN Last administered on 05/17/17 09:45; Start 05/15/17 at 23:15; Stop 05/17/17 at 12:27 ; Status DC Docusate Sodium (Colace) 100 mg BID PO Last administered on 05/18/17 07:53; Start 05/16/17 at 09:00 Ondansetron HCl (Zofran) 4 mg PRN Q6HRS PRN IV NAUESA, 1ST CHOICE; Start at 23:15 Acetaminophen (Tylenol) 500 mg PRN Q6HRS PRN PO MILD PAIN / TEMP; Start at 23:15 Piperacillin Sod/ Tazobactam Sod 3.375 gm/Sodium Chloride 50 ml @ 100 mls/hr Q6HRS IV Last administered on 05/16/17 23:40; Start 05/16/17 at 00:00; Stop at 00:00; Status DC Albuterol Sulfate (Ventolin Neb Soln) 2.5 mg RTQID NEB Last administered on 11:13; Start 05/16/17 at 08:00; Stop 05/17/17 at 12:29; Status DC Fentanyl Citrate (Fentanyl 2ml Vial) 100 mcg STK-MED ONCE .ROUTE ; Start at 23:25; Stop 05/15/17 at 23:26; Status DC Hydromorphone HCl (Dilaudid) 2 mg STK-MED ONCE .ROUTE ; Start 05/15/17 at 23:39 ; Stop 05/15/17 at 23:40; Status DC Hydromorphone HCl (Dilaudid) 0.5 mg PRN Q10MIN PRN IV Moderate to severe pain Last administered on 05/16/17 00:01; Start 05/16/17 at 00:00; Stop 05/16/17 at 23:59; Status DC Alprazolam (Xanax) 0.5 mg PRN TID PRN PO ANXIETY / AGITATION Last administered on 05/18/17 07:53; Start 05/16/17 at 20:45 Budesonide (Pulmicort) 0.5 mg RTBID NEB Last administered on 05/18/17 07:05; Start 05/17/17 at 13:00 Hydromorphone HCl (Dilaudid) 1 mg PRN Q3HRS PRN IV SEVERE PAIN Last administered on 05/17/17 12:48; Start 05/17/17 at 12:30 Ketorolac Tromethamine (Toradol) 15 mg PRN Q6HRS PRN IV PAIN Last administered on 05/17/17 23:56; Start 05/17/17 at 12:30; Stop 05/22/17 at 12:29 Albuterol/ Ipratropium (Duoneb) 3 ml RTQID NEB Last administered on 05/18/17 12:40; Start 05/17/17 at 13:00 Piperacillin Sod/ Tazobactam Sod 3.375 gm/Sodium Chloride 50 ml @ 100 mls/hr Q6HRS IV Last administered on 05/18/17 12:24; Start 05/17/17 at 14:00 Potassium Chloride (Klor-Con) 40 meq 1X ONCE PO Last administered on t 12:23; Start 05/18/17 at 11:30; Stop 05/18/17 at 11:31; Status DC Active Scripts Active Reported Oxycodone Hcl 30 Mg Tablet 1 Tab PO HS [effusion] DAILY Alprazolam 0.5 Mg Tablet 1 Tab PO TID [troush] DAILY Multi-Vitamin Daily (Multivitamin) 1 Each Tablet 1 Each PO QID Lyrica (Pregabalin) 50 Mg Capsule 50 Mg PO HS Lyrica (Pregabalin) 50 Mg Capsule 25 Mg PO BID92 Hydrocodone-Apap 10-325 (Hydrocodone Bit/Acetaminophen) 1 Each Tablet 1 Tab PO TID Vitals/I & O Vital Sign - Last 24 Hours 05/17/17 05/17/17 05/17/17 05/17/17 16:22 18:01 19:00 20:00 Temp 97.7 97.7 Pulse 89 Resp 22 20 B/P (MAP) 142/84 (103) Pulse Ox 96 O2 Delivery Room Air Nasal Cannula Nasal Cannula Nasal Cannula O2 Flow Rate 3.0 2.0 3.0 05/17/17 05/17/17 05/18/17 05/18/17 21:15 23:00 03:00 07:00 Temp 97.5 97.9 97.7 97.5 97.9 97.7 Pulse 85 81 93 Resp 20 18 20 17 B/P (MAP) 135/76 (95) 148/79 (102) 145/79 (101) Pulse Ox 96 97 98 O2 Delivery Nasal Cannula Nasal Cannula Nasal Cannula Nasal Cannula O2 Flow Rate 3.0 2.0 2.0 3.0 05/18/17 05/18/17 05/18/17 05/18/17 07:07 07:54 08:00 11:00 Temp 97.7 97.7 Pulse 80 Resp 30 18 B/P (MAP) 149/80 (103) Pulse Ox 98 97 O2 Delivery Nasal Cannula Nasal Cannula Nasal Cannula Room Air O2 Flow Rate 3.0 3.0 3.0 05/18/17 05/18/17 05/18/17 12:23 12:42 13:23 Resp 26 28 Pulse Ox 96 O2 Delivery Room Air Nasal Cannula Nasal Cannula O2 Flow Rate 2.0 3.0 Intake and Output 05/17/17 05/17/17 05/18/17 15:00 23:00 07:00 Output Total 25 ml 140 ml Balance -25 ml -140 ml STEFFI CULP MD May 18, 2017 15:12
[2017-05-18 15:21] VITALS: BP 152/78
[2017-05-18 19:00] VITALS: BP 143/78
[2017-05-18 23:00] VITALS: BP 135/63
[2017-05-19] MEDS: HYDROcodone/APAP 5/325MG 1 TAB TABLET PO PRN ×4 (02:05→16:39)
[2017-05-19 03:00] VITALS: BP 140/76
[2017-05-19 05:53] LABS: BASO % 1 % (0-3); EOS % 3 % (0-3); HEMATOCRIT 36.5 % (36.0-47.0); HEMOGLOBIN 12.1 g/dL (12.0-15.5); LYMPH # 1.5 x10^3/uL (1.0-4.8); LYMPH % 23 % (24-48); MEAN CORPUSCULAR HEMOGLOBIN 29 pg (25-35); MEAN CORPUSCULAR HGB CONC 33 g/dL (31-37); MEAN CORPUSCULAR VOLUME 89 fL (79-100); MONO % 12 % (0-9); NEUT % 62 % (31-73); PLATELET COUNT 220 x10^3/uL (140-400); RED BLOOD COUNT 4.11 x10^6/uL (3.50-5.40); RED CELL DISTRIBUTION WIDTH 15.4 % (11.5-14.5); WHITE BLOOD COUNT 6.5 x10^3/uL (4.0-11.0)
[2017-05-19 06:02] LABS: CALCIUM 8.3 mg/dL (8.5-10.1); CREATININE 0.6 mg/dL (0.6-1.0); POTASSIUM 3.5 mmol/L (3.5-5.1)
[2017-05-19] MEDS: ALPRAZolam 0.5 MG TABLET PO PRN (06:06)
[2017-05-19] MEDS: PIPERACILLIN/TAZOBACTAM 3.375 GM in IV NORMAL SALINE 50ML 50 ML IV SCH (06:10)
[2017-05-19 07:00] VITALS: BP 105/63
[2017-05-19] MEDS: IPRATRPIUM/ALBUTEROL 0.5/2.5MG 3 ML NEBU. NEB SCH ×3 (07:10→16:05)
[2017-05-19] MEDS: BUDESONIDE 0.5 MG/2 ML NEBU. NEB SCH (07:10)
--- NOTE | 2017-05-19 10:33 | PDOC ---
SURGICAL PROGRESS NOTE Subjective asking when she can go home Vital Signs Vital Signs Date Time Temp Pulse Resp B/P (MAP) Pulse Ox O2 Delivery O2 Flow Rate FiO2 05/19/17 07:40 Room Air 05/19/17 07:12 95 05/19/17 07:00 98.6 87 18 105/63 (77) 98.6 05/19/17 06:08 2.0 I&O Intake and Output 05/19/17 07:00 Intake Total 120 ml Output Total 680 ml Balance -560 ml Intake Oral 120 ml Output Urine Total 650 ml Drainage Total 30 ml # Voids 6 PATIENT HAS A VILLEGAS: No Abdomen: Soft, Other (scant drainage in GABRIELA) Labs Laboratory Tests Test 05/18/17 03:58 05/19/17 04:20 White Blood Count 8.6 x10^3/uL (4.0-11.0) 6.5 x10^3/uL (4.0-11.0) Red Blood Count 3.75 x10^6/uL (3.50-5.40) 4.11 x10^6/uL (3.50-5.40) Hemoglobin 11.1 g/dL (12.0-15.5) 12.1 g/dL (12.0-15.5) Hematocrit 33.3 % (36.0-47.0) 36.5 % (36.0-47.0) Mean Corpuscular Volume 89 fL (79-100) 89 fL (79-100) Mean Corpuscular Hemoglobin 30 pg (25-35) 29 pg (25-35) Mean Corpuscular Hemoglobin Concent 33 g/dL (31-37) 33 g/dL (31-37) Red Cell Distribution Width 15.4 % (11.5-14.5) 15.4 % (11.5-14.5) Platelet Count 182 x10^3/uL (140-400) 220 x10^3/uL (140-400) Neutrophils (%) (Auto) 77 % (31-73) 62 % (31-73) Lymphocytes (%) (Auto) 15 % (24-48) 23 % (24-48) Monocytes (%) (Auto) 8 % (0-9) 12 % (0-9) Eosinophils (%) (Auto) 1 % (0-3) 3 % (0-3) Basophils (%) (Auto) 0 % (0-3) 1 % (0-3) Neutrophils # (Auto) 6.6 x10^3uL (1.8-7.7) 4.0 x10^3uL (1.8-7.7) Lymphocytes # (Auto) 1.3 x10^3/uL (1.0-4.8) 1.5 x10^3/uL (1.0-4.8) Monocytes # (Auto) 0.7 x10^3/uL (0.0-1.1) 0.8 x10^3/uL (0.0-1.1) Eosinophils # (Auto) 0.1 x10^3/uL (0.0-0.7) 0.2 x10^3/uL (0.0-0.7) Basophils # (Auto) 0.0 x10^3/uL (0.0-0.2) 0.0 x10^3/uL (0.0-0.2) Sodium Level 141 mmol/L (136-145) 142 mmol/L (136-145) Potassium Level 3.4 mmol/L (3.5-5.1) 3.5 mmol/L (3.5-5.1) Chloride Level 105 mmol/L (98-107) 105 mmol/L (98-107) Carbon Dioxide Level 28 mmol/L (21-32) 26 mmol/L (21-32) Anion Gap 8 (6-14) 11 (6-14) Blood Urea Nitrogen 11 mg/dL (7-20) 6 mg/dL (7-20) Creatinine 0.5 mg/dL (0.6-1.0) 0.6 mg/dL (0.6-1.0) Estimated GFR (Cockcroft-Gault) 123.4 100.0 Glucose Level 90 mg/dL (70-99) 89 mg/dL (70-99) Calcium Level 8.1 mg/dL (8.5-10.1) 8.3 mg/dL (8.5-10.1) Laboratory Tests Test 05/19/17 04:20 White Blood Count 6.5 x10^3/uL (4.0-11.0) Red Blood Count 4.11 x10^6/uL (3.50-5.40) Hemoglobin 12.1 g/dL (12.0-15.5) Hematocrit 36.5 % (36.0-47.0) Mean Corpuscular Volume 89 fL (79-100) Mean Corpuscular Hemoglobin 29 pg (25-35) Mean Corpuscular Hemoglobin Concent 33 g/dL (31-37) Red Cell Distribution Width 15.4 % (11.5-14.5) Platelet Count 220 x10^3/uL (140-400) Neutrophils (%) (Auto) 62 % (31-73) Lymphocytes (%) (Auto) 23 % (24-48) Monocytes (%) (Auto) 12 % (0-9) Eosinophils (%) (Auto) 3 % (0-3) Basophils (%) (Auto) 1 % (0-3) Neutrophils # (Auto) 4.0 x10^3uL (1.8-7.7) Lymphocytes # (Auto) 1.5 x10^3/uL (1.0-4.8) Monocytes # (Auto) 0.8 x10^3/uL (0.0-1.1) Eosinophils # (Auto) 0.2 x10^3/uL (0.0-0.7) Basophils # (Auto) 0.0 x10^3/uL (0.0-0.2) Sodium Level 142 mmol/L (136-145) Potassium Level 3.5 mmol/L (3.5-5.1) Chloride Level 105 mmol/L (98-107) Carbon Dioxide Level 26 mmol/L (21-32) Anion Gap 11 (6-14) Blood Urea Nitrogen 6 mg/dL (7-20) Creatinine 0.6 mg/dL (0.6-1.0) Estimated GFR (Cockcroft-Gault) 100.0 Glucose Level 89 mg/dL (70-99) Calcium Level 8.3 mg/dL (8.5-10.1) Assessment/Plan POD 4 l/s elli home any time from my standpoint f/u next week in the [facility] office Problems: ALLEN BARTON MD May 19, 2017 10:33
[2017-05-19] MEDS: DOCUSATE SODIUM 100 MG CAPSULE. PO SCH (10:39)
[2017-05-19] MEDS: ENOXAPARIN 40 MG/0.4 ML SYRINGE. SQ SCH (10:40)
[2017-05-19 11:00] VITALS: BP 196/77
[2017-05-19] MEDS ORDERED: DOCU-109 PO (11:23)
[2017-05-19] MEDS ORDERED: HYDR-2766 PO (11:23)
--- NOTE | 2017-05-19 12:14 | PATHOLOGY ---
PATHOLOGY REPORT * * * * * * * * FINAL DIAGNOSIS: Gallbladder, laparoscopic cholecystectomy: - Cholelithiasis. - Acute necrotizing (gangrenous) cholecystitis. COMMENT: There is no evidence of malignancy. (JPM:pit; 05/18/2017) REPORT ELECTRONICALLY SIGNED BY: Jann Raymond M.D. DATE/TIME: 05/18/2017 13:51 * * * * * * * * GROSS PATHOLOGY: Received in formalin labeled "Shannon Wiley, gallbladder," is a 10.2 x 4.9 x 2.8 cm, intact gallbladder with dull baltazar green, necrotic and hemorrhagic appearing serosal surfaces. Opening the gallbladder reveals dark baltazar green, to dark reddish brown, necrotic appearing mucosa and an average wall thickness of 0.8 cm. Calculi are present and no masses are noted grossly. Security System Technician sections from the body and fundus are submitted along with the proximal margin in cassette A1. (JPM; 05/17/17) INITIAL CPT CODE(S): A; 30113 Professional services [place] [address] Technical services performed by [facility] at [address] [place] [address]. SPECIMEN(S) RECEIVED: A.Gallbladder CLINICAL HISTORY: Acute cholecystitis PATIENT: SHANNON WILEY /AGE: 212/09/1950 (Age: 66) PATIENT #: [id number] ALT CASE #: SPECIMEN COLLECTION DATE: 05/15/2017 SPECIMEN RECEIVED DATE: 05/17/2017 [facility] [place] [address] - PHONE: [phone] * * * END OF REPORT * * *
--- NOTE | 2017-05-19 13:54 | PDOC3 ---
Discharge Summary [facility] Date of Admission: May 15, 2017 Discharge Date: May 19, 2017 Admitting Diagnosis Gangrenous cholecystitis present on admission status post cholecystectomy laparoscopic Thrombocytopenia COPD, stable rheumatoid arthritis OA, mult joint problems, fibromyalgia, Problems: CONSULTS sx Procedures lap elli Brief Hospital Course Ms. Cao is a 66 old F, came to ER for abd pain. She underwent lap cholecystectomy for gangreous cholecystitis. Sabas drainage post op. pt cont having abd pain, has flatus, but no BM, tolerates food well. Sabas drains 30cc overnight. sx ok to dc home, Remove SABAS. dc home with HH. dc time 35min General: Alert, Oriented X3, Cooperative Heart: Regular rate, Normal S1, No murmurs Lungs: Clear Abdomen: Soft, Other (incisional TTP, sabas dark serosang ) Extremities: No clubbing, No cyanosis, Other (arthritic changes) Skin: No rashes, No breakdown Problems: Disposition HH CONDITION AT DISCHARGE: Improved Diet gi soft Scheduled Alprazolam (Alprazolam), 1 TAB PO TID, (Reported) Docusate Sodium (Colace), 100 MG PO BID Multivitamin (Multi-Vitamin Daily), 1 EACH PO QID, (Reported) Oxycodone Hcl (Oxycodone Hcl), 1 TAB PO HS, (Reported) Pregabalin (Lyrica), 25 MG PO BID92, (Reported) Pregabalin (Lyrica), 50 MG PO HS, (Reported) Scheduled PRN Hydrocodone Bit/Acetaminophen (Hydrocodone-Apap 10-325 ), 1 TAB PO PRN Q4- 6HRS PRN for PAIN Discontinued Medications [effusion], DAILY, (Reported) [troush], DAILY, (Reported) Follow Up sx in 2 weeks PROSPER CALI MD May 19, 2017 13:54
== END 2017-05-19 16:45 | disposition home health service (06) | DRG 853 ==
LOC: 4 NORTH 19:40 → 1 WEST ICU 19:40 → 4 NORTH 05-17 20:47
PROVIDERS: ADMIT Internal Medicine; ATTEND Internal Medicine
PROC: BF131ZZ Fluoroscopy of Gallbladder and Bile Ducts using Low Osmolar Contrast (ICD-10-PCS; 2017-05-15)
PROC: 0FT44ZZ Resection of Gallbladder, Percutaneous Endoscopic Approach (ICD-10-PCS; principal; 2017-05-15 20:54)
DX: A41.9 Sepsis, unspecified organism (principal); E43 Unspecified severe protein-calorie malnutrition; K80.00 Calculus of gallbladder with acute cholecystitis without obstruction; R45.851 Suicidal ideations; J44.9 Chronic obstructive pulmonary disease, unspecified; M06.9 Rheumatoid arthritis, unspecified; M79.7 Fibromyalgia; Z96.659 Presence of unspecified artificial knee joint; D69.6 Thrombocytopenia, unspecified; F32.9 Major depressive disorder, single episode, unspecified; F41.9 Anxiety disorder, unspecified; G89.29 Other chronic pain; M19.90 Unspecified osteoarthritis, unspecified site; R63.0 Anorexia; Z68.30 Body mass index [BMI] 30.0-30.9, adult; Z90.710 Acquired absence of both cervix and uterus; Z99.81 Dependence on supplemental oxygen; Z87.891 Personal history of nicotine dependence; Z88.5 Allergy status to narcotic agent
CPT/HCPCS: 36415; 74300; 80048; 80053; 85007; 85027; 88304; 94250; 94620; 94640; 94760; C1769; J0330; J0780; J1100; J1170; J1200; J1610; J1650; J1885; J2001; J2370; J2405; J2543; J2704; J2710; J3010; J3490; J7030; J7613; J7620; J7626; Q0163; Q9967; 97116; 97535

== ENCOUNTER → 2017-07-01 | Outpatient (CLI) | payer MEDICARE, OTHER ==
[~2017-07-01] MED LIST: ALBU2.5V14 NEB; ALPR0.5T6 PO; ALPR1TAB6 PO; BUPR1PAT8 TP; DOCU-109 PO; FLUT100D IH; HYDR-2766 PO; HYDR20TA17 PO; L.AC1CAP6 PO; MULT-246 PO; NORE1TAB PO; OXYC30TA PO; PREG50CA PO; [UNRECOGNIZED DRUG - REMARK]; [UNRECOGNIZED DRUG - REMARK]
--- NOTE | 2017-07-01 22:20 | PAIN ---
DATE OF SERVICE: 07/01/2017 INITIAL CONSULTATION CHIEF COMPLAINT: Mid back and upper back, low back and lower extremity pain. HISTORY OF PRESENT ILLNESS: The patient is a 66-year-old female who presents with history of pain in the base of the neck and shoulders, upper extremities, lower extremities, low back, lower extremities for many years, about 7 years ago. The patient reports that she had a spinal cord stimulator placed about that same time, she is unsure who placed it, where it was done and reports the pain is beginning to increase in the low back and legs as well as in her shoulders, neck, upper back, and multiple joints. The patient with diagnosis of fibromyalgia, currently on the narcotic analgesic medication and management with her primary care physician. The patient also reports she has not had her spinal cord stimulator evaluated in well over 2 years. The patient reports her pain is intermittent in intensity, but always present, tingling, numbness, aching, cramping, burning, worse at night in the shoulders and back as well as in the legs. The patient reports it awakes her from sleep about once an hour, does not affect her bowel or bladder control, but does affect her ability to walk. She is using a wheelchair and has a wheelchair with her today as well. PAST MEDICAL HISTORY: Significant for shortness of breath, COPD, anemia, gastroesophageal reflux, fibromyalgia, depression, tachycardia. PREVIOUS SURGERY: Include left and right total knee replacements, left shoulder replacement, partial hysterectomy and then a complete hysterectomy, cholecystectomy, spinal cord stimulator, unsure when this was placed, but it is a [employer] stimulator and she has handheld device and keeps it charged. The patient rates her disability rate from 0-10, 10 being the worst, is a 10 with family and home responsibilities and occupation and sexual behavior and self care, 9 with social activity and 2 with life support activities. CURRENT MEDICATIONS: Include hydrocodone, oxycodone, Tri-Est estrogen replacement, Lyrica, alprazolam, Hysingla and be Butrans patch. ALLERGIES: THE PATIENT IS ALLERGIC TO CODEINE. FAMILY HISTORY: Significant for cancers. She is unsure what type. SOCIAL HISTORY: The patient does not drink, does not smoke, quit 20 years ago. She is , lives with her spouse, has 2 children, living at home and lives in [place], [place]. REVIEW OF SYSTEMS: The patient's review of systems is positive for those items mentioned in history of present illness. All systems reviewed and otherwise negative. It is complete, full and well documented on the patient's chart. PHYSICAL EXAMINATION: VITAL SIGNS: Today, blood pressure is 130/94, pulse 98, respirations 16, temperature is 98.0 degrees Fahrenheit. Height is 5 feet 4 inches and weighs 162 pounds. GENERAL: The patient is awake, alert, oriented, appropriate, very pleasant demeanor. HEENT: Shows normocephalic, atraumatic. Extraocular movements are intact and symmetrical. Oral cavity shows mucous membranes are moist and pink. Dentition is in poor repair, but is intact. NECK: Shows anterior throat supple. CHEST: Shows normal on inspection. Breath sounds are clear to auscultation bilaterally. HEART: Shows S1 and S2 clear. ABDOMEN: Soft, nontender, nondistended. BACK: Shows spine grossly midline, diffuse tenderness throughout the palpation of the superior medial trapezius, inferior cervical paraspinous muscles, , thoracic paraspinous musculature, superior infrascapular musculature as well as the upper, middle and lower distribution of paraspinous muscles in the lumbar distribution. The patient's extremities show upper extremity deep tendon reflexes at 2+ in the biceps, triceps tendons. Lower extremities are 1+ in the patellar and tendo calcaneus tendons. Motor exam is strong with checker dump grounds strength rated at approximately 4 on a scale of 5, but equal and symmetrical. Lower extremities are 5/5 with dorsiflexion, extension, quadriceps and hamstring flexion and symmetrical. Peripheral pulses are 2+ on radial distribution and 1+ posterior tibia. No peripheral edema is noted in any of the extremities. The patient again has difficulty rising from a sitting position, significantly depends on holding on to the arms of the chair and requests assistance with holding her hand to stand up and again using a wheelchair. Ambulation is extremely shuffling and limited with ability to lift feet off the ground with walking. IMPRESSION: 1. This is a 66-year-old female with long history of pain in multiple areas of multiple joints with history of fibromyalgia, also spinal cord stimulator with radicular pain as noted. 2. Gastroesophageal reflux. 3. Chronic obstructive pulmonary disease. 4. Arthritis. 5. Depression. PLAN: Options were discussed with the patient and the patient's daughter who is with her today. We will get her the information for [employer] spinal cord stimulator high school admissions representative to evaluate the stimulator and reprogram it as necessary. The patient will continue to follow up with her primary care physician regarding her medication management. We recommend an anti-inflammatory such as Mobic or Celebrex if tolerated to decrease some of the multiple joint pain complaints as well. TELLO ALVARENGA MD DR: SUZI/valentino JOB#: [id number] / [id number] CAS Velasquez DO
== END | disposition home or self-care (01) ==
LOC: PNCL 10:48
PROVIDERS: ATTEND Anesthesiology
DX: J44.9 Chronic obstructive pulmonary disease, unspecified (principal); K21.9 Gastro-esophageal reflux disease without esophagitis; F32.9 Major depressive disorder, single episode, unspecified; M79.7 Fibromyalgia; R20.0 Anesthesia of skin; Z96.612 Presence of left artificial shoulder joint
CPT/HCPCS: G0463

== ENCOUNTER 2017-08-08 18:00 | Inpatient (IN) | payer MEDICARE, OTHER ==
[~2017-08-08] VITALS: Ht 162.6 cm; Wt 76.8 kg
[2017-08-08] MEDS ORDERED: ONDANSETRON PF 4 MG/2 ML VIAL. IV PRN (20:45)
[2017-08-08] MEDS ORDERED: fentaNYL PF VIAL 100 MCG/2 ML VIAL IV PRN (20:45)
[2017-08-08] MEDS ORDERED: IV NORMAL SALINE 500ML BAG 500 ML IV ONE (21:00)
[2017-08-08 21:30] VITALS: BP 143/84
[2017-08-08 21:34] LABS: BASO # 0.1 x10^3/uL (0.0-0.2); BASO % 1 % (0-3); EOS % 2 % (0-3); LYMPH % 26 % (24-48); MEAN CORPUSCULAR HEMOGLOBIN 26 pg (25-35); MEAN CORPUSCULAR HGB CONC 32 g/dL (31-37); MEAN CORPUSCULAR VOLUME 81 fL (79-100); MONO % 8 % (0-9); NEUT % 63 % (31-73); PLATELET COUNT 370 x10^3/uL (140-400); RED BLOOD COUNT 2.49 x10^6/uL (3.50-5.40); RED CELL DISTRIBUTION WIDTH 19.1 % (11.5-14.5); WHITE BLOOD COUNT 7.6 x10^3/uL (4.0-11.0)
[2017-08-08 21:36] LABS: HEMATOCRIT 20.1 % (36.0-47.0); HEMOGLOBIN 6.4 g/dL (12.0-15.5)
[2017-08-08 21:45] LABS: CALCIUM 7.9 mg/dL (8.5-10.1); CREATININE 0.6 mg/dL (0.6-1.0); POTASSIUM 3.5 mmol/L (3.5-5.1)
[2017-08-08 21:51] LABS: ALBUMIN 2.5 g/dL (3.4-5.0); ALBUMIN/GLOBULIN RATIO 0.7 (1.0-1.7); TOTAL BILIRUBIN 0.2 mg/dL (0.2-1.0); TOTAL PROTEIN 5.9 g/dL (6.4-8.2)
[2017-08-08] MEDS ORDERED: IV NORMAL SALINE 1000ML BAG 1,000 ML IV SCH (22:30)
[2017-08-08] MEDS: PANTOPRAZOLE IV PUSH 40 MG VIAL. IVP SCH (22:32)
[2017-08-08 23:00] VITALS: BP 119/71
[2017-08-08 23:46] VITALS: BP 119/71
[2017-08-09] VITALS (17 sets, daily range): BP systolic 111–146; BP diastolic 64–88
[2017-08-09] MEDS ORDERED: MILN50TA PO (04:19)
[2017-08-09] MEDS ORDERED: IPRATRPIUM/ALBUTEROL 0.5/2.5MG 3 ML NEBU. NEB ONE (06:00)
[2017-08-09] MEDS: IPRATRPIUM/ALBUTEROL 0.5/2.5MG 3 ML NEBU. NEB SCH ×4 (06:02→20:12)
[2017-08-09 06:16] LABS: BASO # 0.1 x10^3/uL (0.0-0.2); BASO % 1 % (0-3); EOS % 3 % (0-3); HEMATOCRIT 26.9 % (36.0-47.0); HEMOGLOBIN 8.6 g/dL (12.0-15.5); LYMPH # 1.5 x10^3/uL (1.0-4.8); LYMPH % 22 % (24-48); MEAN CORPUSCULAR HEMOGLOBIN 26 pg (25-35); MEAN CORPUSCULAR HGB CONC 32 g/dL (31-37); MEAN CORPUSCULAR VOLUME 82 fL (79-100); MONO % 7 % (0-9); NEUT % 66 % (31-73); PLATELET COUNT 321 x10^3/uL (140-400); RED BLOOD COUNT 3.29 x10^6/uL (3.50-5.40); RED CELL DISTRIBUTION WIDTH 17.5 % (11.5-14.5); WHITE BLOOD COUNT 6.7 x10^3/uL (4.0-11.0)
[2017-08-09 06:44] LABS: ALBUMIN 2.4 g/dL (3.4-5.0); ALBUMIN/GLOBULIN RATIO 0.7 (1.0-1.7); CALCIUM 7.8 mg/dL (8.5-10.1); CREATININE 0.6 mg/dL (0.6-1.0); POTASSIUM 3.2 mmol/L (3.5-5.1); TOTAL BILIRUBIN 0.7 mg/dL (0.2-1.0); TOTAL PROTEIN 5.9 g/dL (6.4-8.2)
[2017-08-09] MEDS ORDERED: FLU VACC QS2017-18 (36MOS+)/PF 0.5 ML SYRINGE. VAX IM ONE (09:00)
--- NOTE | 2017-08-09 09:08 | PN ---
DATE: 08/09/2017 SUBJECTIVE: The patient is resting flat in bed, moaning and groaning, complaining of aches and pains all over. She has had no further episodes of nausea, vomiting or diarrhea. No abdominal pain. Her H and H on arrival were 6.4 and 20.1 and typed and crossed and transfused her 2 units of packed RBCs. PHYSICAL EXAMINATION: GENERAL: When I saw her this morning, she was resting flat in bed, in no apparent respiratory distress. She is pale, but not jaundiced, cyanosis, or thyromegaly. No jugular venous distention. No limb edema. VITAL SIGNS: Her heart rate was 99, blood pressure was 136/70, temperature was 99.5, respiratory rate was 14 and oxygen saturation was 97% on 1 liter oxygen. HEAD, EYES, EARS, NOSE AND THROAT: Showed normocephalic, atraumatic. NECK: Supple. HEART: Showed normal first and second heart sounds with no gallop, rub or murmur. CHEST: Clear to auscultation. No crepitation or rhonchi. ABDOMEN: Distended, soft, nontender. No guarding or rigidity. No organomegaly. Hernial orifices intact. Bowel sounds normal. NEUROLOGIC: She is awake, alert, responding appropriately. Cranial nerves intact. She moves extremities without difficulty, although she is mostly bed bound. Her intake was 1500, output was 150. LABORATORY DATA: As of this morning showed a white cell count of 6700, hemoglobin 8.6, hematocrit 26.9, MCV 82 and platelet count of 321,000. Her chemistry showed a serum sodium 144, potassium 3.2, chloride 112, bicarbonate 22, anion gap of 10, BUN 16, creatinine was 0.6, estimated GFR was 100 mL per minute. Her glucose 93, calcium was 7.8. Total bilirubin, AST, ALT, alkaline phosphatase were normal. Total protein was 5.9, albumin was 2.4. ASSESSMENT: Acute blood loss anemia, gastrointestinal bleed, most likely nonsteroidal anti-inflammatory medication induced as she has been taking aspirin and Aleve on a daily basis. Her hemoglobin was 13 grams about 4 months ago, 10 grams about 5 days ago and dropped yesterday in the Emergency Room of [facility] to 7.2, down to 6.4 when she arrived to [facility]. She has history of severe anemia with a hemoglobin that dropped down to 3 grams according to her, for which she was rushed last year to [facility] and had extensive investigation, although according to her, no obvious source of bleeding was found in both upper and lower GI endoscopy. She has received multiple blood transfusions. My plan is to keep her n.p.o. for now. We will contact our pharmacy to see if we can find equivalent to her home medication as she is on as well as long acting hydrocodone. I will consult the sewage plant attendant, health commissioner as well as Pain Management. Continue with oxygen supplementation and her nebulized treatment. We will decide on further management according to the response. We will obviously continue with proton pump inhibitor. For hypokalemia, I will switch her to D5 half normal with potassium chloride. We will follow her H and H every 6 hours. We will get the medical records from [facility], and she might require a bleeding scan to find out exactly where she is bleeding from. HUEY WALTERS MD DR: NEHAL/valentino JOB#: [id number] / [id number]
--- NOTE | 2017-08-09 09:42 | HP ---
ADMIT DATE: 08/08/2017 HISTORY OF PRESENT ILLNESS: The patient is a 66-year-old female patient who was brought to the Emergency Room of [facility] complaining of being dizzy and lightheaded. She has been complaining of vomiting and diarrhea the night before. She is feeling dizzy. She is complaining of aches and pains everywhere. She apparently has a history of fibromyalgia and rheumatoid arthritis and according to her, since she has had her gallbladder removed about 3 months ago, she has not been well. She is having black stools which are liquidy. Pain in abdomen, chest and both arms and especially her right arm. She stated that she had been previously on opiates for pain, but evidently has run out. Her physician was out of town for a month and has not been able to see him for a month now. She gets her medications from [facility] in [place]. She was on Lyrica and apparently she was switched to Savella. As she has no pain. She has been taking 2 tablets aspirin 3 times a day as well as Aleve everyday and on arrival to the Emergency Room, she was found to be anemic. Her hemoglobin has dropped to 7.2 and apparently her hemoglobin was about 13 grams 3 months ago and about 10 g about 4 days ago in the Emergency Room. Her stool was Hemoccult positive and given the fact that she is actively bleeding, a decision was made to admit her to [facility] for further evaluation and probably upper and lower GI endoscopy. PAST MEDICAL HISTORY: Significant for fibromyalgia, rheumatoid arthritis, COPD on oxygen. She has a history also of severe anemia. According to her, her hemoglobin dropped down to 3 grams last year and was rushed from [facility] at [facility] and was extensively investigated. She has upper and lower GI endoscopy, had multiple blood transfusions, but they have never found the site of bleeding according to her. PAST SURGICAL HISTORY: Significant for cholecystectomy, total abdominal hysterectomy, bilateral salpingo-oophorectomy, bilateral total knee arthroplasty and left shoulder surgery. She has also esophagogastroduodenoscopy as well as colonoscopy. ALLERGIES: She is allergic to CODEINE. MEDICATIONS: She is currently on following medications: Albuterol sulfate 2.5 mg in 0.5 mL by nebulizer every 4 hours as needed, alprazolam 1 mg every 6 hours, Butrans 1 patch topically weekly. She is on Colace 100 mg twice a day, Flonase 1 spray to each nostril twice a day, hydrocodone bitartrate or Hysingla extended release 20 mg once a day, probiotic 1 tablet once a day. She is also on Savella 50 mg tablet 1 tablet p.o. b.i.d., multivitamin 1 tablet 4 times a day. She is on Estrostep Fe-28 tablets one tablet daily, pregabalin 25 mg twice a day and pregabalin 50 mg at bedtime. FAMILY HISTORY: Her father at age of 78 because of prostate cancer, one older brother also of prostate cancer. She has 3 other brothers still alive, two of them live in [place], [place], and one lives in [place], she has 1 older sister that has . She does not know the cause of . Her mother at age of 58 because of complications of rheumatoid arthritis. SOCIAL HISTORY: She is and lives with her and one of her sons lives with them. She is an ex-smoker, quit about 30 years ago. She does not drink alcohol or use recreational drugs. 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 REVIEW OF SYSTEMS: The patient denied any blurring of vision, cataract, glaucoma or macular degeneration. Denied any earache, tinnitus or sensorineural deafness. Denied any nosebleeds, stuffy nose or postnasal drip. Denied any sore throat, sore tongue, toothache, hoarseness of voice or difficulty swallowing. She did have recurrent bouts of nausea, vomiting as well as diarrhea with dark black stool. Denied any dysuria, frequency or hematuria. Denied any chest pain, shortness of breath, orthopnea or paroxysmal nocturnal dyspnea. Denied any cough, phlegm or hemoptysis. Denied any chills, rigors or fever. Her main complaint is aches and pains all over because of pneumatosis arthritis as well as her fibromyalgia. PHYSICAL EXAMINATION: GENERAL: On examining her, she was resting flat in bed, in no apparent respiratory distress. She was pale. She is not jaundiced or cyanosed, no lymphadenopathy or thyromegaly. No jugular venous distention. No lower limb edema. VITAL SIGNS: Her heart rate was 104, blood pressure was 129/70, temperature was 98.6, respiratory rate was 18 and oxygen saturation was 97% on 2 liters of oxygen by nasal cannula. HEAD, EYES, EARS, NOSE AND THROAT: Showed normocephalic, atraumatic. NECK: Supple. No lymphadenopathy, no thyromegaly. No jugular venous distention. No audible bruit. HEART: Showed normal first and second heart sounds with no gallop, rub or murmur. CHEST: Clear to auscultation. No crepitation or rhonchi. ABDOMEN: Distended, soft, nontender. There is no guarding or rigidity. No organomegaly. All hernial orifices intact. Bowel sounds normal. NEUROLOGIC: She was awake, alert, responding appropriately. Cranial nerves intact. EXTREMITIES: She moves all extremities without difficulty. LABORATORY DATA: Her lab work done at [facility] Emergency Room showed that her white cell count was 9500, hemoglobin 7.2, hematocrit 22.6, MCV 81 and platelet count of 477,000 with a manual differential showed 71% polymorphs, 20% lymphocytes and 7% monocytes. Her chemistry showed serum sodium of 141, potassium 4, chloride 106, bicarbonate 25, glucose was 127, calcium was 8, BUN 31, creatinine 0.7. Total bilirubin, AST, ALT, alkaline phosphatase were normal. Her albumin was 3.8, estimated GFR was 84 mL per minute. Her troponin was less than 0.017. Her urinalysis was unremarkable. The urine was clear with a pH of 6, specific gravity 1.010. The urine was negative for glucose, bilirubin, ketones, blood, protein as well as leukocyte esterase. There are no wbc's, no rbc's and no bacteria. We did repeat her labs on arrival and her white cell count was down to 7.6, hemoglobin dropped down further to 6.4 and hematocrit 20, MCV 81 and platelet count 370,000. Her chemistry showed a serum sodium 144, potassium 3.5, chloride 109, bicarbonate 25, anion gap of 10, BUN 24, creatinine was 0.6, estimated GFR was 100. Her glucose was 92, calcium was 7.9. Total bilirubin, AST, ALT, alkaline phosphatase were normal. Total protein was 5.9, albumin was 2.5 and her lactic acid was only 1.1. PLAN: The patient was kept n.p.o., continued on IV fluids, IV pain medication and antiemetic. We ordered H and H every 6 hours. We will consult the bus company manager, discharge door operator, pain management. Continue with oxygen. Continue with inhalers. I did start her also on Protonix 40 mg IV twice a day and we will decide on further management accordingly. HUEY WALTERS MD DR: NEHAL/valentino JOB#: [id number] / [id number]
[2017-08-09] MEDS ORDERED: fentaNYL PF VIAL 100 MCG/2 ML VIAL IV PRN ×2 (09:45)
[2017-08-09] MEDS ORDERED: MIDAZOLAM HCL/PF 2 MG/2 ML VIAL. IV PRN (09:45)
[2017-08-09] MEDS ORDERED: LIDOCAINE 1% PF 2 ML VIAL. ID PRN (09:45)
--- NOTE | 2017-08-09 09:52 | PDOC2 ---
GI CONSULT Reason For Consult: Possible GI bleed HPI: HPI: 66 y/o female from [facility], tells me she went for "all over pain" (h/o RA and fibromyalgia). Documentation indicates she also had some vomiting, abd pain, and diarrhea. History from the pt is a bit difficult but she does report " black tarry and stinky stools." D/w Dr. Ramsey; she has been taking ASA and Aleve (she tells me she alternates these). At [facility], Hgb was 7.2 w/ BUN 31 and negative hemoccult. Upon arrival at [facility], Hgb was 6.3 w/ BUN 24. Hgb is now 8.6 s/p transfusion 2 units pRBCs. Denies reflux/heartburn, dysphagia, constipation, hematemesis, and hematochezia. Has lost 3 pounds. Previous EGD and colonoscopy (last year) at [facility] for anemia (she denies melena or any bleeding at that time), apparently both unrevealing for source. S/p cholecystectomy. Consults also to pain management and rheumatology, on IV PPI. PMH: PMH: HTN, COPD, pneumonia, fibromyalgia, RA, panic/anxiety/depression, cholecystectomy, hysterectomy, bilateral knee replacements, shoulder surgery FH: Family History: Cancer (prostate) Social History: Smoke: Quit ALCOHOL: none Drugs: None ROS: GEN: Denies fevers, chills, sweats HEENT: Denies blurred vision, sore throat CV: Denies chest pain RESP: Denies shortness of air, cough GI: Per HPI : Denies hematuria, dysuria ENDO: +weight loss NEURO: Denies confusion, dizziness MSK: +pain SKIN: Denies jaundice, pruritus Vitals: Vitals: Vital Signs Date Time Temp Pulse Resp B/P (MAP) Pulse Ox O2 Delivery O2 Flow Rate FiO2 08/09/17 06:30 99.5 99 14 136/70 (92) 99.5 08/09/17 06:04 97 Nasal Cannula 1.0 Labs: Labs: Laboratory Tests Test 08/08/17 21:10 08/08/17 21:12 08/09/17 03:15 08/09/17 05:15 Sodium Level 144 mmol/L (136-145) 144 mmol/L (136-145) Potassium Level 3.5 mmol/L (3.5-5.1) 3.2 mmol/L (3.5-5.1) Chloride Level 109 mmol/L (98-107) 112 mmol/L (98-107) Carbon Dioxide Level 25 mmol/L (21-32) 22 mmol/L (21-32) Anion Gap 10 (6-14) 10 (6-14) Blood Urea Nitrogen 24 mg/dL (7-20) 16 mg/dL (7-20) Creatinine 0.6 mg/dL (0.6-1.0) 0.6 mg/dL (0.6-1.0) Estimated GFR (Cockcroft-Gault) 100.0 100.0 BUN/Creatinine Ratio 40 (6-20) 27 (6-20) Glucose Level 92 mg/dL (70-99) 93 mg/dL (70-99) Lactic Acid Level 1.1 mmol/L (0.4-2.0) Calcium Level 7.9 mg/dL (8.5-10.1) 7.8 mg/dL (8.5-10.1) Total Bilirubin 0.2 mg/dL (0.2-1.0) 0.7 mg/dL (0.2-1.0) Aspartate Amino Transf (AST/SGOT) 16 U/L (15-37) 17 U/L (15-37) Alanine Aminotransferase (ALT/SGPT) 19 U/L (14-59) 21 U/L (14-59) Alkaline Phosphatase 67 U/L (46-116) 64 U/L (46-116) Total Protein 5.9 g/dL (6.4-8.2) 5.9 g/dL (6.4-8.2) Albumin 2.5 g/dL (3.4-5.0) 2.4 g/dL (3.4-5.0) Albumin/Globulin Ratio 0.7 (1.0-1.7) 0.7 (1.0-1.7) White Blood Count 7.6 x10^3/uL (4.0-11.0) 6.7 x10^3/uL (4.0-11.0) Red Blood Count 2.49 x10^6/uL (3.50-5.40) 3.29 x10^6/uL (3.50-5.40) Hemoglobin 6.4 g/dL (12.0-15.5) 8.6 g/dL (12.0-15.5) Hematocrit 20.1 % (36.0-47.0) 26.9 % (36.0-47.0) Mean Corpuscular Volume 81 fL (79-100) 82 fL (79-100) Mean Corpuscular Hemoglobin 26 pg (25-35) 26 pg (25-35) Mean Corpuscular Hemoglobin Concent 32 g/dL (31-37) 32 g/dL (31-37) Red Cell Distribution Width 19.1 % (11.5-14.5) 17.5 % (11.5-14.5) Platelet Count 370 x10^3/uL (140-400) 321 x10^3/uL (140-400) Neutrophils (%) (Auto) 63 % (31-73) 66 % (31-73) Lymphocytes (%) (Auto) 26 % (24-48) 22 % (24-48) Monocytes (%) (Auto) 8 % (0-9) 7 % (0-9) Eosinophils (%) (Auto) 2 % (0-3) 3 % (0-3) Basophils (%) (Auto) 1 % (0-3) 1 % (0-3) Neutrophils # (Auto) 4.8 x10^3uL (1.8-7.7) 4.4 x10^3uL (1.8-7.7) Lymphocytes # (Auto) 2.0 x10^3/uL (1.0-4.8) 1.5 x10^3/uL (1.0-4.8) Monocytes # (Auto) 0.6 x10^3/uL (0.0-1.1) 0.5 x10^3/uL (0.0-1.1) Eosinophils # (Auto) 0.1 x10^3/uL (0.0-0.7) 0.2 x10^3/uL (0.0-0.7) Basophils # (Auto) 0.1 x10^3/uL (0.0-0.2) 0.1 x10^3/uL (0.0-0.2) Allergies: Coded Allergies: codeine (Verified Allergy, Intermediate, 05/15/17) Medications: Current Medications Medications (Trade) Dose Ordered Sig/Arianne Route PRN Reason Start Time Stop Time Status Last Admin Dose Admin Sodium Chloride 500 ml @ 500 mls/hr 1X ONCE IV 08/08/17 21:00 08/08/17 21:59 DC 08/08/17 22:31 Sodium Chloride 1,000 ml @ 100 mls/hr Q10H IV 08/08/17 22:30 08/09/17 08:24 DC 08/08/17 22:37 Fentanyl Citrate (Fentanyl 2ml Vial) 25 mcg PRN Q2HR PRN IV MODERATE PAIN 08/08/17 20:45 08/08/17 22:39 Pantoprazole Sodium (Protonix Vial) 40 mg BIDAC IVP 08/08/17 21:00 08/08/17 22:32 Albuterol/ Ipratropium (Duoneb) 3 ml RTQID NEB 08/09/17 08:00 08/09/17 06:02 Imaging: Imaging: - PE: GEN: looks uncomfortable HEENT: Atraumatic, PERRL LUNGS: diminished anteriorly HEART: tachycardic ABD: NABS, S/ND/NT EXTREMITY: No edema SKIN: No rashes, no jaundice NEURO/PSYCH: A & O 3 A/P: A/P: Chronic pain, h/o RA and fibromyalgia -ASA and NSAID use Melena, anemia -reports normal EGD and colonoscopy last year @ [facility] for anemia -Hgb improved s/p transfusions -- Continue NPO and IV PPI. EGD this afternoon r/o upper GI source. LUTHER POTTS Aug 09, 2017 09:52
[2017-08-09] MEDS ORDERED: INFLUENZA VAX SCREEN BY RX. MC ONE (10:00)
[2017-08-09] MEDS ORDERED: PNEUMOCOCCAL VAX SCREEN BY RX. MC ONE (10:00)
[2017-08-09] MEDS: POTASSIUM CL 40MEQ D5-0.45NACL 1,000 ML IV SCH (10:10)
[2017-08-09] MEDS: PANTOPRAZOLE IV PUSH 40 MG VIAL. IVP SCH ×2 (10:20→18:14)
[2017-08-09] MEDS: fentaNYL PF VIAL 100 MCG/2 ML VIAL IV PRN ×5 (10:23→23:06)
[2017-08-09] MEDS: fentaNYL 25MCG/HR PATCH 1 PATCH PATCH.TD72 TD SCH (12:33)
[2017-08-09 12:44] LABS: HEMATOCRIT 26.1 % (36.0-47.0); HEMOGLOBIN 8.5 g/dL (12.0-15.5)
[2017-08-09] MEDS: IV RINGERS,LACTATED 1000ML 1,000 ML IV SCH ×2 (13:10→17:45)
[2017-08-09] MEDS ORDERED: PROPOFOL 20 ML IV ONE (13:12)
[2017-08-09] MEDS ORDERED: LIDOCAINE 2% PF Vial for OR 5 ML VIAL. ONE (13:13)
--- NOTE | 2017-08-09 13:50 | PDOC4 ---
PROCEDURE Procedure EGD Indication: subacute anemia/melena? Meds: per anesthesia Findings: E--normal; GEJ at 35cm G--large HH with "Deangelo lesions"; couple of ulcers in HH (5-6mm) and body (8- 10mm) c/w NSAID-induced lesions. Some hematin on the HH ulcer, but no VV or clot. D--Normal to second portion. Chasity. well. IMP: HH with "Deangelo lesions"; this could be held responsible for any chronic BERLIN. Couple of other ulcers c/w NSAID effect; one with some stigmata of recent bleeding, but at low risk of re-bleed. REC: Continue PPI, po when able. Might need chronic iron supplementation unless has HH reduced ( fundoplication not really needed). OK to try clears. Thanks. MAURO RO MD Aug 09, 2017 13:50
[2017-08-09] MEDS: predniSONE 10 MG TABLET PO SCH (14:49)
--- NOTE | 2017-08-09 14:57 | RAD ---
Indication: Right shoulder pain, no known injury. Technique: 3 views of the right shoulder are submitted for review. No comparison is available. Findings: There is mild osteoarthritis in the right glenohumeral joint. No fracture or dislocation is apparent. Spine stimulator is noted. Impression: Negative for fracture. Mild osteoarthritis.
--- NOTE | 2017-08-09 15:04 | RAD ---
Single view of the Chest 08/09/2017 7:49 AM Indication: crackles, SOB Comparison study: none Findings: There is no pneumothorax or evidence of pleural effusion. Mild diffuse interstitial coarsening is noted which is nonspecific. There is an ill-defined nodular opacity in the right upper lobe. This measures approximately 1 cm in diameter. No other focal infiltrate is identified. Heart size is normal. A dorsal column stimulator is noted. No acute bony changes are identified. There is a probable small hiatal hernia. Impression: 1. Poorly defined approximately 1 cm nodular opacity in the right upper lung. No comparisons are available. Recommend further evaluation with CT chest. 2. Mild diffuse interstitial coarsening 3. Probable small hiatal hernia
--- NOTE | 2017-08-09 15:05 | CONS ---
DATE OF CONSULTATION: 08/09/2017 DATE OF SERVICE: 08/09/2017 REQUESTING PHYSICIAN: Dr. Silvia Ramsey. REASON FOR CONSULTATION: Multiple joint pain. HISTORY OF PRESENT ILLNESS: The patient is a 66-year-old female with severe rheumatoid arthritis, noncompliant, who was admitted to the [facility] because of anemia and possible GI bleeding. She carries diagnosis of rheumatoid arthritis for many years and she was followed by me, but from last few years, she has not come for followup visit. The patient is a poor historian. She used to be on daily prednisone and methotrexate, but according to her, she was getting it from the primary care physician and recently they have stopped with unknown reason. Now, she complains of pain in almost all joints. She described the pain as achy, constant, exacerbates with activity and associated with stiffness in the morning for a few hours as well as swelling in the hands. So for further evaluation and management of her rheumatoid arthritis, Rheumatology consultation has been requested. From last 1 week, she complains of severe pain in the right shoulder and she is not able to move the shoulder and denies any history of trauma. PAST MEDICAL HISTORY: Rheumatoid arthritis, fibromyalgia, COPD, anemia. PAST SURGICAL HISTORY: Cholecystectomy, total abdominal hysterectomy, bilateral salpingo-oophorectomy, bilateral total knee replacement, left shoulder surgery. SOCIAL HISTORY: She is . She is an ex smoker, but denies any alcohol abuse. FAMILY HISTORY: Negative for any autoimmune disease. ALLERGIES: CODEINE. MEDICATIONS: I have reviewed the list of medications. REVIEW OF SYSTEMS: Positive for abdominal pain, joint pain, fatigue, and all other systems are reviewed and negative. PHYSICAL EXAMINATION: GENERAL: She is awake, alert, oriented, not in acute distress. VITAL SIGNS: Reveal temperature 98.2, pulse 106, respiration rate 20 and blood pressure 117/74. SKIN: She does not have any rash. HEENT: Normocephalic, atraumatic head. No oral ulcerations. NECK: Supple. HEART: S1, S2 regular. LUNGS: Clear to auscultation. EXTREMITIES: No pitting edema. MUSCULOSKELETAL: Reveals tenderness on all joints of the body. She has mild synovitis in all, PIP and MCP joints of both hands with swan-neck deformity of the left fifth finger. She has a severe hammertoe deformity of the right foot and crossing deformity of the left second toe. She does have severe tenderness in the right shoulder and she does have very limited range of motion, but no synovitis. She has multiple tender myofascial points also. LABORATORY DATA: I have reviewed her laboratory test results: Her hemoglobin is 8.6, WBC 6.7, platelet 331, creatinine is 0.6, albumin is 2.4 and onward, AST, ALT. ASSESSMENT: 1. Polyarthralgia. 2. Rheumatoid arthritis, severely active. 3. Right adhesive capsulitis. 4. Anemia with possible GI bleeding. 5. Primary polyarticular osteoarthritis. Clinically, her rheumatoid arthritis is severely active. The patient is a poor historian and she does not know about her intake of the prednisone and methotrexate and the reason for discontinuation of both medications. So, I will restart her on prednisone 10 mg every morning until the current issue resolves. She may be a better candidate for the biologic medication, but we cannot start at this time. I will request x-ray of the right shoulder to look for any fracture. I will defer the pain management to you. If she gets discharged, she was advised to continue prednisone 10 mg and make an appointment in my clinic in about 1-2 weeks for further treatment of the rheumatoid arthritis. Thank you for allowing me to participate in her care. If you have any few any question, please do not hesitate to contact me. JOSAFAT GENTILE MD DR: YODIT/valentino JOB#: [id number] / [id number]
[2017-08-09 18:07] LABS: HEMATOCRIT 26.7 % (36.0-47.0); HEMOGLOBIN 8.7 g/dL (12.0-15.5)
[2017-08-09] MEDS: ALPRAZolam 1 MG TABLET PO PRN (18:14)
[2017-08-09] MEDS: PREGABALIN 50 MG CAPSULE PO SCH (21:33)
[2017-08-10] MEDS: ALPRAZolam 1 MG TABLET PO PRN ×4 (01:55→22:06)
[2017-08-10] MEDS: fentaNYL PF VIAL 100 MCG/2 ML VIAL IV PRN ×2 (01:55→07:51)
[2017-08-10 03:00] VITALS: BP 103/74
[2017-08-10 05:17] LABS: BASO % 1 % (0-3); EOS % 1 % (0-3); HEMATOCRIT 23.3 % (36.0-47.0); HEMOGLOBIN 7.7 g/dL (12.0-15.5); LYMPH # 1.2 x10^3/uL (1.0-4.8); LYMPH % 18 % (24-48); MEAN CORPUSCULAR HEMOGLOBIN 27 pg (25-35); MEAN CORPUSCULAR HGB CONC 33 g/dL (31-37); MEAN CORPUSCULAR VOLUME 82 fL (79-100); MONO % 7 % (0-9); NEUT % 73 % (31-73); PLATELET COUNT 258 x10^3/uL (140-400); RED BLOOD COUNT 2.85 x10^6/uL (3.50-5.40); RED CELL DISTRIBUTION WIDTH 18.2 % (11.5-14.5); WHITE BLOOD COUNT 6.7 x10^3/uL (4.0-11.0)
[2017-08-10 05:47] LABS: ALBUMIN 2.4 g/dL (3.4-5.0); ALBUMIN/GLOBULIN RATIO 0.7 (1.0-1.7); C-REACTIVE PROTEIN 4.6 mg/L (0-3.3); CALCIUM 8.3 mg/dL (8.5-10.1); CREATININE 0.6 mg/dL (0.6-1.0); POTASSIUM 3.9 mmol/L (3.5-5.1); TOTAL BILIRUBIN 0.7 mg/dL (0.2-1.0); TOTAL PROTEIN 5.9 g/dL (6.4-8.2)
[2017-08-10 07:00] VITALS: BP 107/69
[2017-08-10] MEDS: IPRATRPIUM/ALBUTEROL 0.5/2.5MG 3 ML NEBU. NEB SCH ×4 (07:10→19:10)
[2017-08-10] MEDS: POTASSIUM CL 40MEQ D5-0.45NACL 1,000 ML IV SCH ×2 (07:26→09:51)
[2017-08-10] MEDS: PANTOPRAZOLE IV PUSH 40 MG VIAL. IVP SCH (07:50)
[2017-08-10] MEDS: PREGABALIN 25 MG CAPSULE PO SCH ×2 (07:50→14:31)
[2017-08-10] MEDS: predniSONE 10 MG TABLET PO SCH (07:51)
[2017-08-10] MEDS ORDERED: IRON SUCROSE COMPLEX 200 MG in IV NORMAL SALINE 100ML 100 ML IV ONE (09:00)
[2017-08-10 11:00] VITALS: BP 116/70
--- NOTE | 2017-08-10 11:06 | PDOC ---
Subjective: Subjective: Feeling better. Tolerating clears, very hungry. No n/v or bleeding. Normal stool yesterday. No abd pain. Objective: Objective: Receiving IV iron. Vital Signs: Vital Signs Date Time Temp Pulse Resp B/P (MAP) Pulse Ox O2 Delivery O2 Flow Rate FiO2 08/10/17 08:21 20 Nasal Cannula 2.0 08/10/17 07:11 97 08/10/17 07:00 98.3 100 107/69 (82) 98.3 Labs: Laboratory Tests Test 08/09/17 12:30 08/09/17 18:00 08/10/17 04:30 Hemoglobin 8.5 g/dL 8.7 g/dL 7.7 g/dL Hematocrit 26.1 % 26.7 % 23.3 % Mean Corpuscular Hemoglobin Concent 33 g/dL 33 g/dL 33 g/dL White Blood Count 6.7 x10^3/uL Red Blood Count 2.85 x10^6/uL Mean Corpuscular Volume 82 fL Mean Corpuscular Hemoglobin 27 pg Red Cell Distribution Width 18.2 % Platelet Count 258 x10^3/uL Neutrophils (%) (Auto) 73 % Lymphocytes (%) (Auto) 18 % Monocytes (%) (Auto) 7 % Eosinophils (%) (Auto) 1 % Basophils (%) (Auto) 1 % Neutrophils # (Auto) 4.9 x10^3uL Lymphocytes # (Auto) 1.2 x10^3/uL Monocytes # (Auto) 0.5 x10^3/uL Eosinophils # (Auto) 0.1 x10^3/uL Basophils # (Auto) 0.0 x10^3/uL Erythrocyte Sedimentation Rate 10 Sodium Level 143 mmol/L Potassium Level 3.9 mmol/L Chloride Level 111 mmol/L Carbon Dioxide Level 25 mmol/L Anion Gap 7 Blood Urea Nitrogen 5 mg/dL Creatinine 0.6 mg/dL Estimated GFR (Cockcroft-Gault) 100.0 BUN/Creatinine Ratio 8 Glucose Level 109 mg/dL Calcium Level 8.3 mg/dL Total Bilirubin 0.7 mg/dL Aspartate Amino Transf (AST/SGOT) 37 U/L Alanine Aminotransferase (ALT/SGPT) 32 U/L Alkaline Phosphatase 72 U/L C-Reactive Protein, Quantitative 4.6 mg/L Total Protein 5.9 g/dL Albumin 2.4 g/dL Albumin/Globulin Ratio 0.7 Imaging: EGD 08/09/17 E--normal; GEJ at 35cm G--large HH with "Deangelo lesions"; couple of ulcers in HH (5-6mm) and body (8- 10mm) c/w NSAID-induced lesions. Some hematin on the HH ulcer, but no VV or clot. D--Normal to second portion. IMP: HH with "Deangelo lesions"; this could be held responsible for any chronic BERLIN. Couple of other ulcers c/w NSAID effect; one with some stigmata of recent bleeding, but at low risk of re-bleed. PE: GEN: NAD LUNGS: CTAB HEART: RRR ABD: S/ND/NT NEURO/PSYCH: A & O 3 A/P: Large hiatal hernia w/ Deangelo lesions Gastric ulcers Anemia Melena - no recurrence -- ADAT. Stop IV PPI, change to PO (BID for now). LUTHER POTTS Aug 10, 2017 11:06
--- NOTE | 2017-08-10 11:32 | PN ---
DATE: 08/10/2017 SUBJECTIVE: The patient is resting, slightly propped up, eating her breakfast comfortably, in no apparent distress. She is complaining of pain in her right shoulder. X-ray showed there is mild osteoarthritis of the right glenohumeral joint. No fracture or dislocation is evident. Spine stimulator is noted. She apparently underwent upper GI endoscopy, which showed that she has a large hiatal hernia with Deangelo lesions, couple of ulcers and hiatal hernia about 5-6 mm in diameter. She has also ulcers in the body of the stomach that are about 8-10 mm, consistent with nonsteroidal anti-inflammatory induced lesions. The duodenum is normal to second portion, and they recommended to continue with PPI and iron supplementation as well as to try clears. She was also seen by the data solutions architect, was started on prednisone 10 mg daily. I did resume her Lyrica and started her on fentanyl patch 25 mcg. She is feeling generally much better except the pain in her right shoulder. PHYSICAL EXAMINATION: GENERAL: When I examined her, she looked well and was clearly in no apparent respiratory distress. No jaundice, cyanosis or thyromegaly. No jugular venous distention. No limb edema. VITAL SIGNS: Her heart rate was 79, blood pressure was 103/74, temperature was 98, respiratory rate 20 and oxygen saturation was 97% on 2 liters oxygen. HEAD, EYES, EARS, NOSE AND THROAT: Showed normocephalic, atraumatic. NECK: Supple. HEART: Showed normal first and second heart sounds with no gallop, rub or murmur. CHEST: Clear to auscultation. No crepitation or rhonchi. ABDOMEN: Distended, soft, nontender. There is no guarding or rigidity. No organomegaly. Hernial orifices intact. Bowel sounds normal. NEUROLOGIC: She is awake, alert, responding appropriately. Cranial nerves intact. She moves extremities without difficulty. She ambulates without assistance or assistive devices. Her intake over the last 24 hours was 1500, output was 150. LABORATORY DATA: As of this morning, her white cell count is 6700, hemoglobin 7.7, hematocrit 23.3, MCV 82 and platelet count 358,000 with normal manual differential. Her chemistry showed a serum sodium 143, potassium 3.9, chloride 111, bicarbonate 25, anion gap of 7, BUN 5, creatinine 0.6, estimated GFR was 100 mL per minute. Her glucose was 109, calcium was 8.3. Total bilirubin, AST, ALT, alkaline phosphatase were normal. Her total protein was 5.9, albumin was 2.4 g/dL. Her C-reactive protein was 4.6, and her sedimentation rate was 10 mm per hour. ASSESSMENT: 1. Acute blood loss anemia, with a hemoglobin that dropped down to 6.4 and hematocrit 20 on admission. Upper gastrointestinal endoscopy showed that she has a hiatal hernia with multiple ulcers within the head and hernia and also in the bed of the stomach consistent with nonsteroidal anti-inflammatory medication. 2. She apparently is hepatitis C positive, although her liver enzymes are all normal. Other medical problems including chronic obstructive pulmonary disease, rheumatoid arthritis, fibromyalgia. She has a previous episode of gastrointestinal bleed with severe anemia with hemoglobin that dropped down to 3.6 g/dL, for which she was admitted last year to [facility]; however, at that time, both upper and lower gastrointestinal endoscopy and even capsular endoscopy did not reveal any site of bleeding. PLAN: My plan is to continue with IV fluid, continue with clear liquid diet and advance as tolerated. We will continue to monitor her H and H as hemoglobin is trending down this morning. We will obviously transfuse patient if hemoglobin drops below 7, and I would consult Dr. Hall, she might require injection of her right shoulder. HUYE WALTERS MD DR: NEHAL/valentino JOB#: [id number] / [id number]
[2017-08-10 12:27] LABS: HEMATOCRIT 26.8 % (36.0-47.0); HEMOGLOBIN 8.6 g/dL (12.0-15.5)
--- NOTE | 2017-08-10 12:39 | PDOC ---
PROGRESS NOTES Subjective Subjective Her joint pain improved. She is eating lunch with rt hand with very much less pain in rt shoulder. Still am stiffness and jaint swelling but improving. Objective Objective Vital Signs Date Time Temp Pulse Resp B/P (MAP) Pulse Ox O2 Delivery O2 Flow Rate FiO2 08/10/17 11:07 Nasal Cannula 1.0 08/10/17 08:21 20 08/10/17 07:11 97 08/10/17 07:00 98.3 100 107/69 (82) 98.3 Intake and Output 08/11/17 07:00 Output Total 150 ml Balance -150 ml Output Urine Total 150 ml Physical Exam Heart: Regular rate, Normal S1, Normal S2, No murmurs, Gallops General: Alert, Oriented X3, Cooperative, No acute distress Lungs: Clear to auscultation, Normal air movement MUSCULOSKELETAL: Other (tenderness in all joints with some swelling in hands, reduced ROM of rt shoulder. ) Neck: Supple, No JVD, No thyromegaly Skin: No rashes, No breakdown, No significant lesion Assessment Assessment 1. Polyarthralgia, improving 2. Rheumatoid arthritis, severely active. 3. Right adhesive capsulitis. 4. Anemia with possible GI bleeding. 5. Primary polyarticular osteoarthritis. Plan Plan of Care Advised to do ROM exercise for rt shoulder. Cont. Prednisone 10 mg and have f/u in clinic in 2 weeks. No other DMARD at present. Comment Review of Relevant I have reviewed the following items ruba (where applicable) has been applied. Labs Laboratory Tests Test 08/08/17 21:10 08/08/17 21:12 08/09/17 03:15 08/09/17 05:15 Sodium Level 144 mmol/L (136-145) 144 mmol/L (136-145) Potassium Level 3.5 mmol/L (3.5-5.1) 3.2 mmol/L (3.5-5.1) Chloride Level 109 mmol/L (98-107) 112 mmol/L (98-107) Carbon Dioxide Level 25 mmol/L (21-32) 22 mmol/L (21-32) Anion Gap 10 (6-14) 10 (6-14) Blood Urea Nitrogen 24 mg/dL (7-20) 16 mg/dL (7-20) Creatinine 0.6 mg/dL (0.6-1.0) 0.6 mg/dL (0.6-1.0) Estimated GFR (Cockcroft-Gault) 100.0 100.0 BUN/Creatinine Ratio 40 (6-20) 27 (6-20) Glucose Level 92 mg/dL (70-99) 93 mg/dL (70-99) Lactic Acid Level 1.1 mmol/L (0.4-2.0) Calcium Level 7.9 mg/dL (8.5-10.1) 7.8 mg/dL (8.5-10.1) Total Bilirubin 0.2 mg/dL (0.2-1.0) 0.7 mg/dL (0.2-1.0) Aspartate Amino Transf (AST/SGOT) 16 U/L (15-37) 17 U/L (15-37) Alanine Aminotransferase (ALT/SGPT) 19 U/L (14-59) 21 U/L (14-59) Alkaline Phosphatase 67 U/L (46-116) 64 U/L (46-116) Total Protein 5.9 g/dL (6.4-8.2) 5.9 g/dL (6.4-8.2) Albumin 2.5 g/dL (3.4-5.0) 2.4 g/dL (3.4-5.0) Albumin/Globulin Ratio 0.7 (1.0-1.7) 0.7 (1.0-1.7) White Blood Count 7.6 x10^3/uL (4.0-11.0) 6.7 x10^3/uL (4.0-11.0) Red Blood Count 2.49 x10^6/uL (3.50-5.40) 3.29 x10^6/uL (3.50-5.40) Hemoglobin 6.4 g/dL (12.0-15.5) 8.6 g/dL (12.0-15.5) Hematocrit 20.1 % (36.0-47.0) 26.9 % (36.0-47.0) Mean Corpuscular Volume 81 fL (79-100) 82 fL (79-100) Mean Corpuscular Hemoglobin 26 pg (25-35) 26 pg (25-35) Mean Corpuscular Hemoglobin Concent 32 g/dL (31-37) 32 g/dL (31-37) Red Cell Distribution Width 19.1 % (11.5-14.5) 17.5 % (11.5-14.5) Platelet Count 370 x10^3/uL (140-400) 321 x10^3/uL (140-400) Neutrophils (%) (Auto) 63 % (31-73) 66 % (31-73) Lymphocytes (%) (Auto) 26 % (24-48) 22 % (24-48) Monocytes (%) (Auto) 8 % (0-9) 7 % (0-9) Eosinophils (%) (Auto) 2 % (0-3) 3 % (0-3) Basophils (%) (Auto) 1 % (0-3) 1 % (0-3) Neutrophils # (Auto) 4.8 x10^3uL (1.8-7.7) 4.4 x10^3uL (1.8-7.7) Lymphocytes # (Auto) 2.0 x10^3/uL (1.0-4.8) 1.5 x10^3/uL (1.0-4.8) Monocytes # (Auto) 0.6 x10^3/uL (0.0-1.1) 0.5 x10^3/uL (0.0-1.1) Eosinophils # (Auto) 0.1 x10^3/uL (0.0-0.7) 0.2 x10^3/uL (0.0-0.7) Basophils # (Auto) 0.1 x10^3/uL (0.0-0.2) 0.1 x10^3/uL (0.0-0.2) Test 08/09/17 12:30 08/09/17 18:00 08/10/17 04:30 08/10/17 12:15 Hemoglobin 8.5 g/dL (12.0-15.5) 8.7 g/dL (12.0-15.5) 7.7 g/dL (12.0-15.5) 8.6 g/dL (12.0-15.5) Hematocrit 26.1 % (36.0-47.0) 26.7 % (36.0-47.0) 23.3 % (36.0-47.0) 26.8 % (36.0-47.0) Mean Corpuscular Hemoglobin Concent 33 g/dL (31-37) 33 g/dL (31-37) 33 g/dL (31-37) 32 g/dL (31-37) White Blood Count 6.7 x10^3/uL (4.0-11.0) Red Blood Count 2.85 x10^6/uL (3.50-5.40) Mean Corpuscular Volume 82 fL (79-100) Mean Corpuscular Hemoglobin 27 pg (25-35) Red Cell Distribution Width 18.2 % (11.5-14.5) Platelet Count 258 x10^3/uL (140-400) Neutrophils (%) (Auto) 73 % (31-73) Lymphocytes (%) (Auto) 18 % (24-48) Monocytes (%) (Auto) 7 % (0-9) Eosinophils (%) (Auto) 1 % (0-3) Basophils (%) (Auto) 1 % (0-3) Neutrophils # (Auto) 4.9 x10^3uL (1.8-7.7) Lymphocytes # (Auto) 1.2 x10^3/uL (1.0-4.8) Monocytes # (Auto) 0.5 x10^3/uL (0.0-1.1) Eosinophils # (Auto) 0.1 x10^3/uL (0.0-0.7) Basophils # (Auto) 0.0 x10^3/uL (0.0-0.2) Erythrocyte Sedimentation Rate 10 (0-25) Sodium Level 143 mmol/L (136-145) Potassium Level 3.9 mmol/L (3.5-5.1) Chloride Level 111 mmol/L (98-107) Carbon Dioxide Level 25 mmol/L (21-32) Anion Gap 7 (6-14) Blood Urea Nitrogen 5 mg/dL (7-20) Creatinine 0.6 mg/dL (0.6-1.0) Estimated GFR (Cockcroft-Gault) 100.0 BUN/Creatinine Ratio 8 (6-20) Glucose Level 109 mg/dL (70-99) Calcium Level 8.3 mg/dL (8.5-10.1) Total Bilirubin 0.7 mg/dL (0.2-1.0) Aspartate Amino Transf (AST/SGOT) 37 U/L (15-37) Alanine Aminotransferase (ALT/SGPT) 32 U/L (14-59) Alkaline Phosphatase 72 U/L (46-116) C-Reactive Protein, Quantitative 4.6 mg/L (0-3.3) Total Protein 5.9 g/dL (6.4-8.2) Albumin 2.4 g/dL (3.4-5.0) Albumin/Globulin Ratio 0.7 (1.0-1.7) Laboratory Tests Test 08/09/17 18:00 08/10/17 04:30 08/10/17 12:15 Hemoglobin 8.7 g/dL (12.0-15.5) 7.7 g/dL (12.0-15.5) 8.6 g/dL (12.0-15.5) Hematocrit 26.7 % (36.0-47.0) 23.3 % (36.0-47.0) 26.8 % (36.0-47.0) Mean Corpuscular Hemoglobin Concent 33 g/dL (31-37) 33 g/dL (31-37) 32 g/dL (31-37) White Blood Count 6.7 x10^3/uL (4.0-11.0) Red Blood Count 2.85 x10^6/uL (3.50-5.40) Mean Corpuscular Volume 82 fL (79-100) Mean Corpuscular Hemoglobin 27 pg (25-35) Red Cell Distribution Width 18.2 % (11.5-14.5) Platelet Count 258 x10^3/uL (140-400) Neutrophils (%) (Auto) 73 % (31-73) Lymphocytes (%) (Auto) 18 % (24-48) Monocytes (%) (Auto) 7 % (0-9) Eosinophils (%) (Auto) 1 % (0-3) Basophils (%) (Auto) 1 % (0-3) Neutrophils # (Auto) 4.9 x10^3uL (1.8-7.7) Lymphocytes # (Auto) 1.2 x10^3/uL (1.0-4.8) Monocytes # (Auto) 0.5 x10^3/uL (0.0-1.1) Eosinophils # (Auto) 0.1 x10^3/uL (0.0-0.7) Basophils # (Auto) 0.0 x10^3/uL (0.0-0.2) Erythrocyte Sedimentation Rate 10 (0-25) Sodium Level 143 mmol/L (136-145) Potassium Level 3.9 mmol/L (3.5-5.1) Chloride Level 111 mmol/L (98-107) Carbon Dioxide Level 25 mmol/L (21-32) Anion Gap 7 (6-14) Blood Urea Nitrogen 5 mg/dL (7-20) Creatinine 0.6 mg/dL (0.6-1.0) Estimated GFR (Cockcroft-Gault) 100.0 BUN/Creatinine Ratio 8 (6-20) Glucose Level 109 mg/dL (70-99) Calcium Level 8.3 mg/dL (8.5-10.1) Total Bilirubin 0.7 mg/dL (0.2-1.0) Aspartate Amino Transf (AST/SGOT) 37 U/L (15-37) Alanine Aminotransferase (ALT/SGPT) 32 U/L (14-59) Alkaline Phosphatase 72 U/L (46-116) C-Reactive Protein, Quantitative 4.6 mg/L (0-3.3) Total Protein 5.9 g/dL (6.4-8.2) Albumin 2.4 g/dL (3.4-5.0) Albumin/Globulin Ratio 0.7 (1.0-1.7) Medications Current Medications Sodium Chloride 500 ml @ 500 mls/hr 1X ONCE IV Last administered on 22:31; Start 08/08/17 at 21:00; Stop 08/08/17 at 21:59; Status DC Sodium Chloride 1,000 ml @ 100 mls/hr Q10H IV Last administered on 08/08/17 22:37; Start 08/08/17 at 22:30; Stop 08/09/17 at 08:24; Status DC Fentanyl Citrate (Fentanyl 2ml Vial) 50 mcg PRN Q2HR PRN IV SEVERE PAIN Last administered on 08/10/17 07:51; Start 08/08/17 at 20:45 Fentanyl Citrate (Fentanyl 2ml Vial) 25 mcg PRN Q2HR PRN IV MODERATE PAIN Last administered on 08/08/17 22:39; Start 08/08/17 at 20:45 Lorazepam (Ativan) 0.5 mg 1X ONCE IV ; Start 08/08/17 at 21:30; Stop at 21:31; Status DC Ondansetron HCl (Zofran) 4 mg PRN Q4HRS PRN IV NAUSEA/VOMITING; Start at 20:45 Pantoprazole Sodium (Protonix Vial) 40 mg BIDAC IVP Last administered on 07:50; Start 08/08/17 at 21:00; Stop 08/10/17 at 11:01; Status DC Info (Do NOT chart on this placeholder) 1 each 1X ONCE MC ; Start 08/09/17 at 10:00; Stop 08/09/17 at 10:01; Status UNV Pneumococcal Polyvalent Vaccine (Do NOT chart on this placeholder) 1 each 1X ONCE MC ; Start 08/09/17 at 10:00; Stop 08/09/17 at 10:01; Status UNV Influenza Virus Vaccine Quadrival (Fluarix Quad [id number] Syringe) 0.5 ml ONCE ONCE VAX IM ; Start 08/09/17 at 09:00; Stop 08/09/17 at 09:01; Status DC Albuterol/ Ipratropium (Duoneb) 3 ml 1X ONCE NEB ; Start 08/09/17 at 06:00; Stop 08/09/17 at 06:01; Status DC Albuterol/ Ipratropium (Duoneb) 3 ml RTQID NEB Last administered on 08/10/17 11:06; Start 08/09/17 at 08:00 Potassium Chloride/Dextrose/ Sod Cl 1,000 ml @ 75 mls/hr [id number] IV Last administered on 08/10/17 07:26; Start 08/09/17 at 08:30 Midazolam HCl (Versed) 2 mg PRN 1X PRN IV PRIOR TO PROCEDURE; Start 08/09/17 at 09:45; Stop 08/10/17 at 09:44; Status DC Fentanyl Citrate (Fentanyl 2ml Vial) 25 mcg PRN Q5MIN PRN IV X 2 DOSES FOR PAIN ; Start 08/09/17 at 09:45; Stop 08/10/17 at 09:44; Status DC Fentanyl Citrate (Fentanyl 2ml Vial) 50 mcg PRN Q5MIN PRN IV X 2 DOSES FOR PAIN ; Start 08/09/17 at 09:45; Stop 08/10/17 at 09:44; Status DC Ringer's Solution 1,000 ml @ 125 mls/hr Q8H IV Last administered on 13:10; Start 08/09/17 at 09:45; Stop 08/09/17 at 21:44; Status DC Lidocaine HCl (Xylocaine-Mpf 1% Vial) 2 ml 1X PRN PRN ID IV START; Start 08/09 at 09:45; Stop 08/10/17 at 09:44; Status DC Fentanyl (Duragesic 25mcg/ Hr Patch) 1 patch Q3DAYS TD Last administered on 12:33; Start 08/09/17 at 12:00 Prednisone (Prednisone) 10 mg DAILY PO Last administered on 08/10/17 07:51; Start 08/09/17 at 13:00 Propofol 20 ml @ As Directed STK-MED ONCE IV ; Start 08/09/17 at 13:12; Stop 08/09/17 at 13:13; Status DC Lidocaine HCl (Lidocaine Pf 2% Vial) 5 ml STK-MED ONCE .ROUTE ; Start 08/09/17 at 13:13; Stop 08/09/17 at 13:14; Status DC Alprazolam (Xanax) 1 mg PRN Q6HRS PRN PO ANXIETY / AGITATION Last administered on 08/10/17 07:50; Start 08/09/17 at 15:45 Pregabalin (Lyrica) 25 mg BID92 PO Last administered on 08/10/17 07:50; Start 08/10/17 at 09:00 Pregabalin (Lyrica) 50 mg HS PO Last administered on 08/09/17 21:33; Start 08/09/17 at 21:00 Iron Sucrose 200 mg/Sodium Chloride 110 ml @ 55 mls/hr 1X ONCE IV Last administered on 08/10/17 09:48; Start 08/10/17 at 09:00; Stop 08/10/17 at 10 :59; Status DC Acetaminophen/ Hydrocodone Bitart (Lortab 7.5/325) 1 tab PRN Q6HRS PRN PO PAIN ; Start 08/10/17 at 10:15 Pantoprazole Sodium (Protonix) 40 mg BIDAC PO ; Start 08/10/17 at 16:30 Active Scripts Active Colace (Docusate Sodium) 100 Mg Capsule 100 Mg PO BID Reported Savella (Milnacipran Hcl) 50 Mg Tablet 1 Tab PO BID Estrostep Fe-28 Tablet (Noreth A-Et Estra/Fe Fumarate) 1 Each Tablet 1 Each PO Albuterol Sulfate Conc Neb Soln (Albuterol Sulfate) 2.5 Mg/0.5 Ml Vial.neb 1 Vial NEB Q6HRS Flovent 100MCG Diskus (Fluticasone Propionate) 100 Mcg Disk.w.dev 1 Puff IH BID Probiotic (L.acidoph & Paracasei,B.lactis) 1 Each Capsule 1 Each PO Alprazolam 1 Mg Tablet 1 Mg PO PRN Q6HRS PRN Hysingla ER (Hydrocodone Bitartrate) 20 Mg Tab.er.24h 20 Mg PO Butrans (Buprenorphine) 1 Each Patch.tdwk 1 Patch TP WEEKLY Multi-Vitamin Daily (Multivitamin) 1 Each Tablet 1 Each PO QID Lyrica (Pregabalin) 50 Mg Capsule 50 Mg PO HS Lyrica (Pregabalin) 50 Mg Capsule 25 Mg PO [id number] Vitals/I & O Vital Sign - Last 24 Hours 08/09/17 08/09/17 08/09/17 08/09/17 12:38 13:05 13:06 13:50 Temp 99.3 99.3 Pulse 98 104 Resp 25 20 18 B/P (MAP) 135/66 Pulse Ox 99 99 O2 Delivery Nasal Cannula Nasal Cannula Nasal Cannula O2 Flow Rate 2.0 2.0 2.0 08/09/17 08/09/17 08/09/17 08/09/17 14:05 14:45 14:49 15:00 Temp 97.9 97.9 Pulse 93 98 97 Resp 18 18 20 18 B/P (MAP) 126/70 131/75 (93) 120/73 (89) Pulse Ox 98 97 97 O2 Delivery Nasal Cannula Room Air Nasal Cannula Room Air O2 Flow Rate 2.0 08/09/17 08/09/17 08/09/17 08/09/17 15:13 15:15 15:30 16:33 Pulse 104 87 Resp 20 18 20 B/P (MAP) 122/77 (92) 130/72 (91) Pulse Ox 98 99 O2 Delivery Nasal Cannula Room Air Room Air Nasal Cannula O2 Flow Rate 1.0 2.0 08/09/17 08/09/17 08/09/17 08/09/17 18:15 19:00 20:00 20:13 Temp 98.7 98.7 Pulse 84 Resp 22 20 B/P (MAP) 114/75 (88) Pulse Ox 99 97 O2 Delivery Nasal Cannula Nasal Cannula Nasal Cannula Nasal Cannula O2 Flow Rate 2.0 2.0 2.0 1.0 08/09/17 08/09/17 08/10/17 08/10/17 23:00 23:06 01:55 03:00 Temp 98.4 98.0 98.4 98.0 Pulse 84 79 Resp 20 20 B/P (MAP) 111/64 (80) 103/74 (84) Pulse Ox 95 99 O2 Delivery Nasal Cannula Nasal Cannula Nasal Cannula Nasal Cannula O2 Flow Rate 2.0 2.0 2.0 2.0 08/10/17 08/10/17 08/10/17 08/10/17 07:00 07:11 07:51 08:21 Temp 98.3 98.3 Pulse 100 Resp 20 25 20 B/P (MAP) 107/69 (82) Pulse Ox 97 97 O2 Delivery Nasal Cannula Nasal Cannula Nasal Cannula Nasal Cannula O2 Flow Rate 2.0 1.0 2.0 2.0 08/10/17 11:07 O2 Delivery Nasal Cannula O2 Flow Rate 1.0 Intake and Output 08/10/17 08/10/17 08/11/17 15:00 23:00 07:00 Output Total 150 ml Balance -150 ml JOSAFAT GENTILE MD Aug 10, 2017 12:39
--- NOTE | 2017-08-10 13:13 | CONS ---
DATE OF CONSULTATION: 08/10/2017 ATTENDING PHYSICIAN: Dr. Ramsey. The patient was seen at the request of Dr. Ramsey for rehab evaluation. She is in room 422. HISTORY OF PRESENT ILLNESS: This is a 66-year-old female with known rheumatoid arthritis, was followed by Dr. King in the past, but recently not kept follow up on a regular basis. The patient apparently lost follow up with her family physician, Dr. Giron recently as he moved to [place] and she does not have any pain medication. She was admitted through the Emergency Room on 08/08/2017 to [facility] complaining of feeling dizzy and lightheaded and vomiting and diarrhea and generalized aches and pain. The patient also with history of fibromyalgia, status post cholecystectomy done at [facility] about 3 months ago. She also was noted with black stools and at the present time, being treated for acute GI bleeding, probably from use of nonsteroidal anti-inflammatory medication to control her pain. The patient also with known chronic obstructive pulmonary disease, on oxygen and history of severe anemia. She was admitted at [facility] with hemoglobin of 3 grams percent last year and was extensively investigated, had upper and lower GI endoscopy, had multiple blood transfusions, but never found the site of bleeding. The patient also is status post total abdominal hysterectomy, bilateral salpingo-oophorectomy, bilateral total knee arthroplasty and left shoulder surgery. The patient is a known ALLERGIC TO CODEINE. She complains of pain in the right shoulder and x-rays of right shoulder showed mild degenerative changes. The patient prior to the present hospitalization, lives with her family and had stairs for her to manage and she has been getting around taking care of herself and she had a cane and walker to use. The patient denies any trouble with her bowel or bladder control. PHYSICAL EXAMINATION: Today, revealed a middle-aged female. She is alert, oriented to time, place, person and circumstance and follows commands appropriately. Moves all 4 extremities voluntarily where she had 4+/5 grade muscle strength. Deep tendon reflexes are 1 to 2+ and symmetrical with decreased ankle jerks and she had equal perception of touch and pinprick sensation bilaterally. She had tenderness to palpation over anterior aspect of right shoulder. The patient had some stiffness of both hip joints. The patient is independent with bed mobility. I have not tested her transfers or ambulation skills at this time. She had tenderness to palpation over sacroiliac joint area. Straight leg raising test is negative bilaterally. Overall, muscle strength being 4+/5 grade and she had equal perception of touch and pinprick sensation bilaterally. ASSESSMENT: A middle-aged female with history of rheumatoid arthritis, status post left shoulder surgery and also bilateral total knee arthroplasty with clinical evidence of degenerative changes in her hips and degenerative changes in her right shoulder with associated tendinitis. The patient with known fibromyalgia, chronic obstructive pulmonary disease, recent admission for gastrointestinal bleeding and blood loss anemia from use of nonsteroidal anti-inflammatory medication. RECOMMENDATIONS: It seems prednisone is helping ease some of her soreness, to try physical modalities to help ease her right shoulder pain and to consider injecting painful right shoulder and sacroiliac joint area if the pain is interfering with her mobility and self-care. Dr. Ramsey, I appreciate asking me to participate in the care of this interesting patient. I will be glad to follow her with you as needed for her rehabilitation. DIMITRI RODRIGUEZ MD DR: CHRISTIANO/valentino JOB#: [id number] / [id number]
[2017-08-10] MEDS: HYDROcodone/APAP 7.5/325MG 1 TAB TABLET PO PRN ×2 (14:31→22:06)
[2017-08-10 15:00] VITALS: BP 115/70
[2017-08-10] MEDS: PANTOPRAZOLE 40 MG TABLET.DR. PO SCH (16:50)
[2017-08-10 18:18] LABS: HEMATOCRIT 25.6 % (36.0-47.0); HEMOGLOBIN 8.2 g/dL (12.0-15.5)
[2017-08-10 19:00] VITALS: BP 161/83
[2017-08-10] MEDS: PREGABALIN 50 MG CAPSULE PO SCH (21:09)
[2017-08-10 23:00] VITALS: BP 110/63
[2017-08-11] MEDS: POTASSIUM CL 40MEQ D5-0.45NACL 1,000 ML IV SCH (02:17)
[2017-08-11 03:00] VITALS: BP 120/67
[2017-08-11] MEDS: PANTOPRAZOLE 40 MG TABLET.DR. PO SCH ×2 (05:16→18:27)
[2017-08-11] MEDS: HYDROcodone/APAP 7.5/325MG 1 TAB TABLET PO PRN ×3 (05:16→21:40)
[2017-08-11] MEDS: ALPRAZolam 1 MG TABLET PO PRN ×2 (05:16→18:27)
[2017-08-11 05:43] LABS: BASO % 1 % (0-3); EOS % 3 % (0-3); HEMATOCRIT 22.2 % (36.0-47.0); HEMOGLOBIN 7.2 g/dL (12.0-15.5); LYMPH # 1.3 x10^3/uL (1.0-4.8); LYMPH % 23 % (24-48); MEAN CORPUSCULAR HEMOGLOBIN 27 pg (25-35); MEAN CORPUSCULAR HGB CONC 32 g/dL (31-37); MEAN CORPUSCULAR VOLUME 82 fL (79-100); MONO % 10 % (0-9); NEUT % 64 % (31-73); PLATELET COUNT 245 x10^3/uL (140-400); RED BLOOD COUNT 2.71 x10^6/uL (3.50-5.40); RED CELL DISTRIBUTION WIDTH 18.1 % (11.5-14.5); WHITE BLOOD COUNT 5.8 x10^3/uL (4.0-11.0)
[2017-08-11 06:07] LABS: ALBUMIN 2.4 g/dL (3.4-5.0); ALBUMIN/GLOBULIN RATIO 0.8 (1.0-1.7); CALCIUM 8.4 mg/dL (8.5-10.1); CREATININE 0.6 mg/dL (0.6-1.0); POTASSIUM 4.1 mmol/L (3.5-5.1); TOTAL BILIRUBIN 0.2 mg/dL (0.2-1.0); TOTAL PROTEIN 5.6 g/dL (6.4-8.2)
[2017-08-11 07:00] VITALS: BP 134/77
[2017-08-11] MEDS: IPRATRPIUM/ALBUTEROL 0.5/2.5MG 3 ML NEBU. NEB SCH ×4 (07:17→19:58)
--- NOTE | 2017-08-11 08:36 | PDOC ---
G I PROGRESS NOTE Subjective Feels good. Eating well. No further overt bleeding. Physical Exam Lungs clear. RRR Abdomen soft, not distended nor tender. Review of Relevant I have reviewed the following items ruba (where applicable) has been applied. Labs Laboratory Tests Test 08/09/17 12:30 08/09/17 18:00 08/10/17 04:30 08/10/17 12:15 Hemoglobin 8.5 g/dL (12.0-15.5) 8.7 g/dL (12.0-15.5) 7.7 g/dL (12.0-15.5) 8.6 g/dL (12.0-15.5) Hematocrit 26.1 % (36.0-47.0) 26.7 % (36.0-47.0) 23.3 % (36.0-47.0) 26.8 % (36.0-47.0) Mean Corpuscular Hemoglobin Concent 33 g/dL (31-37) 33 g/dL (31-37) 33 g/dL (31-37) 32 g/dL (31-37) White Blood Count 6.7 x10^3/uL (4.0-11.0) Red Blood Count 2.85 x10^6/uL (3.50-5.40) Mean Corpuscular Volume 82 fL (79-100) Mean Corpuscular Hemoglobin 27 pg (25-35) Red Cell Distribution Width 18.2 % (11.5-14.5) Platelet Count 258 x10^3/uL (140-400) Neutrophils (%) (Auto) 73 % (31-73) Lymphocytes (%) (Auto) 18 % (24-48) Monocytes (%) (Auto) 7 % (0-9) Eosinophils (%) (Auto) 1 % (0-3) Basophils (%) (Auto) 1 % (0-3) Neutrophils # (Auto) 4.9 x10^3uL (1.8-7.7) Lymphocytes # (Auto) 1.2 x10^3/uL (1.0-4.8) Monocytes # (Auto) 0.5 x10^3/uL (0.0-1.1) Eosinophils # (Auto) 0.1 x10^3/uL (0.0-0.7) Basophils # (Auto) 0.0 x10^3/uL (0.0-0.2) Erythrocyte Sedimentation Rate 10 (0-25) Sodium Level 143 mmol/L (136-145) Potassium Level 3.9 mmol/L (3.5-5.1) Chloride Level 111 mmol/L (98-107) Carbon Dioxide Level 25 mmol/L (21-32) Anion Gap 7 (6-14) Blood Urea Nitrogen 5 mg/dL (7-20) Creatinine 0.6 mg/dL (0.6-1.0) Estimated GFR (Cockcroft-Gault) 100.0 BUN/Creatinine Ratio 8 (6-20) Glucose Level 109 mg/dL (70-99) Calcium Level 8.3 mg/dL (8.5-10.1) Total Bilirubin 0.7 mg/dL (0.2-1.0) Aspartate Amino Transf (AST/SGOT) 37 U/L (15-37) Alanine Aminotransferase (ALT/SGPT) 32 U/L (14-59) Alkaline Phosphatase 72 U/L (46-116) C-Reactive Protein, Quantitative 4.6 mg/L (0-3.3) Total Protein 5.9 g/dL (6.4-8.2) Albumin 2.4 g/dL (3.4-5.0) Albumin/Globulin Ratio 0.7 (1.0-1.7) Test 08/10/17 18:00 08/11/17 04:35 Hemoglobin 8.2 g/dL (12.0-15.5) 7.2 g/dL (12.0-15.5) Hematocrit 25.6 % (36.0-47.0) 22.2 % (36.0-47.0) Mean Corpuscular Hemoglobin Concent 32 g/dL (31-37) 32 g/dL (31-37) White Blood Count 5.8 x10^3/uL (4.0-11.0) Red Blood Count 2.71 x10^6/uL (3.50-5.40) Mean Corpuscular Volume 82 fL (79-100) Mean Corpuscular Hemoglobin 27 pg (25-35) Red Cell Distribution Width 18.1 % (11.5-14.5) Platelet Count 245 x10^3/uL (140-400) Neutrophils (%) (Auto) 64 % (31-73) Lymphocytes (%) (Auto) 23 % (24-48) Monocytes (%) (Auto) 10 % (0-9) Eosinophils (%) (Auto) 3 % (0-3) Basophils (%) (Auto) 1 % (0-3) Neutrophils # (Auto) 3.7 x10^3uL (1.8-7.7) Lymphocytes # (Auto) 1.3 x10^3/uL (1.0-4.8) Monocytes # (Auto) 0.5 x10^3/uL (0.0-1.1) Eosinophils # (Auto) 0.2 x10^3/uL (0.0-0.7) Basophils # (Auto) 0.0 x10^3/uL (0.0-0.2) Sodium Level 145 mmol/L (136-145) Potassium Level 4.1 mmol/L (3.5-5.1) Chloride Level 111 mmol/L (98-107) Carbon Dioxide Level 26 mmol/L (21-32) Anion Gap 8 (6-14) Blood Urea Nitrogen 5 mg/dL (7-20) Creatinine 0.6 mg/dL (0.6-1.0) Estimated GFR (Cockcroft-Gault) 100.0 BUN/Creatinine Ratio 8 (6-20) Glucose Level 95 mg/dL (70-99) Calcium Level 8.4 mg/dL (8.5-10.1) Magnesium Level 1.7 mg/dL (1.8-2.4) Total Bilirubin 0.2 mg/dL (0.2-1.0) Aspartate Amino Transf (AST/SGOT) 44 U/L (15-37) Alanine Aminotransferase (ALT/SGPT) 50 U/L (14-59) Alkaline Phosphatase 75 U/L (46-116) Total Protein 5.6 g/dL (6.4-8.2) Albumin 2.4 g/dL (3.4-5.0) Albumin/Globulin Ratio 0.8 (1.0-1.7) Laboratory Tests Test 08/10/17 12:15 08/10/17 18:00 08/11/17 04:35 Hemoglobin 8.6 g/dL (12.0-15.5) 8.2 g/dL (12.0-15.5) 7.2 g/dL (12.0-15.5) Hematocrit 26.8 % (36.0-47.0) 25.6 % (36.0-47.0) 22.2 % (36.0-47.0) Mean Corpuscular Hemoglobin Concent 32 g/dL (31-37) 32 g/dL (31-37) 32 g/dL (31-37) White Blood Count 5.8 x10^3/uL (4.0-11.0) Red Blood Count 2.71 x10^6/uL (3.50-5.40) Mean Corpuscular Volume 82 fL (79-100) Mean Corpuscular Hemoglobin 27 pg (25-35) Red Cell Distribution Width 18.1 % (11.5-14.5) Platelet Count 245 x10^3/uL (140-400) Neutrophils (%) (Auto) 64 % (31-73) Lymphocytes (%) (Auto) 23 % (24-48) Monocytes (%) (Auto) 10 % (0-9) Eosinophils (%) (Auto) 3 % (0-3) Basophils (%) (Auto) 1 % (0-3) Neutrophils # (Auto) 3.7 x10^3uL (1.8-7.7) Lymphocytes # (Auto) 1.3 x10^3/uL (1.0-4.8) Monocytes # (Auto) 0.5 x10^3/uL (0.0-1.1) Eosinophils # (Auto) 0.2 x10^3/uL (0.0-0.7) Basophils # (Auto) 0.0 x10^3/uL (0.0-0.2) Sodium Level 145 mmol/L (136-145) Potassium Level 4.1 mmol/L (3.5-5.1) Chloride Level 111 mmol/L (98-107) Carbon Dioxide Level 26 mmol/L (21-32) Anion Gap 8 (6-14) Blood Urea Nitrogen 5 mg/dL (7-20) Creatinine 0.6 mg/dL (0.6-1.0) Estimated GFR (Cockcroft-Gault) 100.0 BUN/Creatinine Ratio 8 (6-20) Glucose Level 95 mg/dL (70-99) Calcium Level 8.4 mg/dL (8.5-10.1) Magnesium Level 1.7 mg/dL (1.8-2.4) Total Bilirubin 0.2 mg/dL (0.2-1.0) Aspartate Amino Transf (AST/SGOT) 44 U/L (15-37) Alanine Aminotransferase (ALT/SGPT) 50 U/L (14-59) Alkaline Phosphatase 75 U/L (46-116) Total Protein 5.6 g/dL (6.4-8.2) Albumin 2.4 g/dL (3.4-5.0) Albumin/Globulin Ratio 0.8 (1.0-1.7) Some drop in hemoglobin; still equilibrating? Medications Current Medications Sodium Chloride 500 ml @ 500 mls/hr 1X ONCE IV Last administered on 22:31; Start 08/08/17 at 21:00; Stop 08/08/17 at 21:59; Status DC Sodium Chloride 1,000 ml @ 100 mls/hr Q10H IV Last administered on 08/08/17 22:37; Start 08/08/17 at 22:30; Stop 08/09/17 at 08:24; Status DC Fentanyl Citrate (Fentanyl 2ml Vial) 50 mcg PRN Q2HR PRN IV SEVERE PAIN Last administered on 08/10/17 07:51; Start 08/08/17 at 20:45 Fentanyl Citrate (Fentanyl 2ml Vial) 25 mcg PRN Q2HR PRN IV MODERATE PAIN Last administered on 08/08/17 22:39; Start 08/08/17 at 20:45 Lorazepam (Ativan) 0.5 mg 1X ONCE IV ; Start 08/08/17 at 21:30; Stop at 21:31; Status DC Ondansetron HCl (Zofran) 4 mg PRN Q4HRS PRN IV NAUSEA/VOMITING; Start at 20:45 Pantoprazole Sodium (Protonix Vial) 40 mg BIDAC IVP Last administered on 07:50; Start 08/08/17 at 21:00; Stop 08/10/17 at 11:01; Status DC Info (Do NOT chart on this placeholder) 1 each 1X ONCE MC ; Start 08/09/17 at 10:00; Stop 08/09/17 at 10:01; Status UNV Pneumococcal Polyvalent Vaccine (Do NOT chart on this placeholder) 1 each 1X ONCE MC ; Start 08/09/17 at 10:00; Stop 08/09/17 at 10:01; Status UNV Influenza Virus Vaccine Quadrival (Fluarix Quad [id number] Syringe) 0.5 ml ONCE ONCE VAX IM Last administered on 08/10/17 14:36; Start 08/09/17 at 09:00; Stop 08/09/17 at 09:01; Status DC Albuterol/ Ipratropium (Duoneb) 3 ml 1X ONCE NEB ; Start 08/09/17 at 06:00; Stop 08/09/17 at 06:01; Status DC Albuterol/ Ipratropium (Duoneb) 3 ml RTQID NEB Last administered on 08/11/17 07:17; Start 08/09/17 at 08:00 Potassium Chloride/Dextrose/ Sod Cl 1,000 ml @ 75 mls/hr [id number] IV Last administered on 08/11/17 02:17; Start 08/09/17 at 08:30 Midazolam HCl (Versed) 2 mg PRN 1X PRN IV PRIOR TO PROCEDURE; Start 08/09/17 at 09:45; Stop 08/10/17 at 09:44; Status DC Fentanyl Citrate (Fentanyl 2ml Vial) 25 mcg PRN Q5MIN PRN IV X 2 DOSES FOR PAIN ; Start 08/09/17 at 09:45; Stop 08/10/17 at 09:44; Status DC Fentanyl Citrate (Fentanyl 2ml Vial) 50 mcg PRN Q5MIN PRN IV X 2 DOSES FOR PAIN ; Start 08/09/17 at 09:45; Stop 08/10/17 at 09:44; Status DC Ringer's Solution 1,000 ml @ 125 mls/hr Q8H IV Last administered on t 13:10; Start 08/09/17 at 09:45; Stop 08/09/17 at 21:44; Status DC Lidocaine HCl (Xylocaine-Mpf 1% Vial) 2 ml 1X PRN PRN ID IV START; Start 08/09 at 09:45; Stop 08/10/17 at 09:44; Status DC Fentanyl (Duragesic 25mcg/ Hr Patch) 1 patch Q3DAYS TD Last administered on 12:33; Start 08/09/17 at 12:00 Prednisone (Prednisone) 10 mg DAILY PO Last administered on 08/10/17 07:51; Start 08/09/17 at 13:00 Propofol 20 ml @ As Directed STK-MED ONCE IV ; Start 08/09/17 at 13:12; Stop 08/09/17 at 13:13; Status DC Lidocaine HCl (Lidocaine Pf 2% Vial) 5 ml STK-MED ONCE .ROUTE ; Start 08/09/17 at 13:13; Stop 08/09/17 at 13:14; Status DC Alprazolam (Xanax) 1 mg PRN Q6HRS PRN PO ANXIETY / AGITATION Last administered on 08/11/17 05:16; Start 08/09/17 at 15:45 Pregabalin (Lyrica) 25 mg [id number] PO Last administered on 08/10/17 14:31; Start 08/10/17 at 09:00 Pregabalin (Lyrica) 50 mg HS PO Last administered on 08/10/17 21:09; Start 08/09/17 at 21:00 Iron Sucrose 200 mg/Sodium Chloride 110 ml @ 55 mls/hr 1X ONCE IV Last administered on 08/10/17 09:48; Start 08/10/17 at 09:00; Stop 08/10/17 at 10 :59; Status DC Acetaminophen/ Hydrocodone Bitart (Lortab 7.5/325) 1 tab PRN Q6HRS PRN PO PAIN Last administered on 08/11/17 05:16; Start 08/10/17 at 10:15 Pantoprazole Sodium (Protonix) 40 mg BIDAC PO Last administered on 08/11/17 05:16; Start 08/10/17 at 16:30 Active Scripts Active Colace (Docusate Sodium) 100 Mg Capsule 100 Mg PO BID Reported Savella (Milnacipran Hcl) 50 Mg Tablet 1 Tab PO BID Estrostep Fe-28 Tablet (Noreth A-Et Estra/Fe Fumarate) 1 Each Tablet 1 Each PO Albuterol Sulfate Conc Neb Soln (Albuterol Sulfate) 2.5 Mg/0.5 Ml Vial.neb 1 Vial NEB Q6HRS Flovent 100MCG Diskus (Fluticasone Propionate) 100 Mcg Disk.w.dev 1 Puff IH BID Probiotic (L.acidoph & Paracasei,B.lactis) 1 Each Capsule 1 Each PO Alprazolam 1 Mg Tablet 1 Mg PO PRN Q6HRS PRN Hys[place]la ER (Hydrocodone Bitartrate) 20 Mg Tab.er.24h 20 Mg PO Butrans (Buprenorphine) 1 Each Patch.tdwk 1 Patch TP WEEKLY Multi-Vitamin Daily (Multivitamin) 1 Each Tablet 1 Each PO QID Lyrica (Pregabalin) 50 Mg Capsule 50 Mg PO HS Lyrica (Pregabalin) 50 Mg Capsule 25 Mg PO [id number] Vitals/I & O Vital Sign - Last 24 Hours 08/10/17 08/10/17 08/10/17 08/10/17 11:00 11:07 14:31 15:00 Temp 98.1 98.1 Pulse 85 109 Resp 18 22 20 B/P (MAP) 116/70 (85) 115/70 (85) Pulse Ox 98 96 O2 Delivery Room Air Nasal Cannula Room Air Nasal Cannula O2 Flow Rate 1.0 2.0 08/10/17 08/10/17 08/10/17 08/10/17 15:24 15:34 19:00 19:11 Temp 97.7 97.7 Pulse 90 Resp 18 22 B/P (MAP) 161/83 (109) Pulse Ox 96 O2 Delivery Room Air Room Air Room Air 08/10/17 08/10/17 08/10/17 08/11/17 20:00 22:06 23:00 03:00 Temp 97.7 97.9 97.7 97.9 Pulse 86 84 Resp 21 18 B/P (MAP) 110/63 (79) 120/67 (84) Pulse Ox 96 98 O2 Delivery Nasal Cannula Nasal Cannula Room Air Nasal Cannula O2 Flow Rate 2.0 2.0 2.0 08/11/17 08/11/17 08/11/17 05:16 06:16 07:18 Pulse Ox 97 O2 Delivery Nasal Cannula Nasal Cannula Nasal Cannula O2 Flow Rate 2.0 2.0 1.0 Assessment NSAID ulcers. HH with Deangelo lesions. Seems stable w/o active bleeding. Plan of Care Note Continue PPI; consider chronic. Probably needs chronic iron supplement; po OK, but would take at least bid, tid if can stomach. Home OK with us at your discretion. Thanks. MAURO RO MD Aug 11, 2017 08:36
[2017-08-11] MEDS: PREGABALIN 25 MG CAPSULE PO SCH ×2 (08:44→13:06)
[2017-08-11] MEDS: predniSONE 10 MG TABLET PO SCH (08:44)
--- NOTE | 2017-08-11 09:59 | PDOC ---
PROGRESS NOTES Subjective Subjective She admits continued pain right shoulder with movement. Objective Objective Vital Signs Date Time Temp Pulse Resp B/P (MAP) Pulse Ox O2 Delivery O2 Flow Rate FiO2 08/11/17 07:18 97 Nasal Cannula 1.0 08/11/17 07:00 97.7 96 18 134/77 (96) 97.7 Physical Exam Physical Exam She had tenderness to palpation over right bicipital tendon area right shoulder and pain on active ROM but no evidence of frozen shoulder or rotator cuff lesion.She is independent with her mobility. Plan Plan of [facility] with out patient follow up by physical and occupational therapy when medically stable. Comment Review of Relevant I have reviewed the following items ruba (where applicable) has been applied. Labs Laboratory Tests Test 08/09/17 12:30 08/09/17 18:00 08/10/17 04:30 08/10/17 12:15 Hemoglobin 8.5 g/dL (12.0-15.5) 8.7 g/dL (12.0-15.5) 7.7 g/dL (12.0-15.5) 8.6 g/dL (12.0-15.5) Hematocrit 26.1 % (36.0-47.0) 26.7 % (36.0-47.0) 23.3 % (36.0-47.0) 26.8 % (36.0-47.0) Mean Corpuscular Hemoglobin Concent 33 g/dL (31-37) 33 g/dL (31-37) 33 g/dL (31-37) 32 g/dL (31-37) White Blood Count 6.7 x10^3/uL (4.0-11.0) Red Blood Count 2.85 x10^6/uL (3.50-5.40) Mean Corpuscular Volume 82 fL (79-100) Mean Corpuscular Hemoglobin 27 pg (25-35) Red Cell Distribution Width 18.2 % (11.5-14.5) Platelet Count 258 x10^3/uL (140-400) Neutrophils (%) (Auto) 73 % (31-73) Lymphocytes (%) (Auto) 18 % (24-48) Monocytes (%) (Auto) 7 % (0-9) Eosinophils (%) (Auto) 1 % (0-3) Basophils (%) (Auto) 1 % (0-3) Neutrophils # (Auto) 4.9 x10^3uL (1.8-7.7) Lymphocytes # (Auto) 1.2 x10^3/uL (1.0-4.8) Monocytes # (Auto) 0.5 x10^3/uL (0.0-1.1) Eosinophils # (Auto) 0.1 x10^3/uL (0.0-0.7) Basophils # (Auto) 0.0 x10^3/uL (0.0-0.2) Erythrocyte Sedimentation Rate 10 (0-25) Sodium Level 143 mmol/L (136-145) Potassium Level 3.9 mmol/L (3.5-5.1) Chloride Level 111 mmol/L (98-107) Carbon Dioxide Level 25 mmol/L (21-32) Anion Gap 7 (6-14) Blood Urea Nitrogen 5 mg/dL (7-20) Creatinine 0.6 mg/dL (0.6-1.0) Estimated GFR (Cockcroft-Gault) 100.0 BUN/Creatinine Ratio 8 (6-20) Glucose Level 109 mg/dL (70-99) Calcium Level 8.3 mg/dL (8.5-10.1) Total Bilirubin 0.7 mg/dL (0.2-1.0) Aspartate Amino Transf (AST/SGOT) 37 U/L (15-37) Alanine Aminotransferase (ALT/SGPT) 32 U/L (14-59) Alkaline Phosphatase 72 U/L (46-116) C-Reactive Protein, Quantitative 4.6 mg/L (0-3.3) Total Protein 5.9 g/dL (6.4-8.2) Albumin 2.4 g/dL (3.4-5.0) Albumin/Globulin Ratio 0.7 (1.0-1.7) Test 08/10/17 18:00 08/11/17 04:35 Hemoglobin 8.2 g/dL (12.0-15.5) 7.2 g/dL (12.0-15.5) Hematocrit 25.6 % (36.0-47.0) 22.2 % (36.0-47.0) Mean Corpuscular Hemoglobin Concent 32 g/dL (31-37) 32 g/dL (31-37) White Blood Count 5.8 x10^3/uL (4.0-11.0) Red Blood Count 2.71 x10^6/uL (3.50-5.40) Mean Corpuscular Volume 82 fL (79-100) Mean Corpuscular Hemoglobin 27 pg (25-35) Red Cell Distribution Width 18.1 % (11.5-14.5) Platelet Count 245 x10^3/uL (140-400) Neutrophils (%) (Auto) 64 % (31-73) Lymphocytes (%) (Auto) 23 % (24-48) Monocytes (%) (Auto) 10 % (0-9) Eosinophils (%) (Auto) 3 % (0-3) Basophils (%) (Auto) 1 % (0-3) Neutrophils # (Auto) 3.7 x10^3uL (1.8-7.7) Lymphocytes # (Auto) 1.3 x10^3/uL (1.0-4.8) Monocytes # (Auto) 0.5 x10^3/uL (0.0-1.1) Eosinophils # (Auto) 0.2 x10^3/uL (0.0-0.7) Basophils # (Auto) 0.0 x10^3/uL (0.0-0.2) Sodium Level 145 mmol/L (136-145) Potassium Level 4.1 mmol/L (3.5-5.1) Chloride Level 111 mmol/L (98-107) Carbon Dioxide Level 26 mmol/L (21-32) Anion Gap 8 (6-14) Blood Urea Nitrogen 5 mg/dL (7-20) Creatinine 0.6 mg/dL (0.6-1.0) Estimated GFR (Cockcroft-Gault) 100.0 BUN/Creatinine Ratio 8 (6-20) Glucose Level 95 mg/dL (70-99) Calcium Level 8.4 mg/dL (8.5-10.1) Magnesium Level 1.7 mg/dL (1.8-2.4) Total Bilirubin 0.2 mg/dL (0.2-1.0) Aspartate Amino Transf (AST/SGOT) 44 U/L (15-37) Alanine Aminotransferase (ALT/SGPT) 50 U/L (14-59) Alkaline Phosphatase 75 U/L (46-116) Total Protein 5.6 g/dL (6.4-8.2) Albumin 2.4 g/dL (3.4-5.0) Albumin/Globulin Ratio 0.8 (1.0-1.7) Laboratory Tests Test 08/10/17 12:15 08/10/17 18:00 08/11/17 04:35 Hemoglobin 8.6 g/dL (12.0-15.5) 8.2 g/dL (12.0-15.5) 7.2 g/dL (12.0-15.5) Hematocrit 26.8 % (36.0-47.0) 25.6 % (36.0-47.0) 22.2 % (36.0-47.0) Mean Corpuscular Hemoglobin Concent 32 g/dL (31-37) 32 g/dL (31-37) 32 g/dL (31-37) White Blood Count 5.8 x10^3/uL (4.0-11.0) Red Blood Count 2.71 x10^6/uL (3.50-5.40) Mean Corpuscular Volume 82 fL (79-100) Mean Corpuscular Hemoglobin 27 pg (25-35) Red Cell Distribution Width 18.1 % (11.5-14.5) Platelet Count 245 x10^3/uL (140-400) Neutrophils (%) (Auto) 64 % (31-73) Lymphocytes (%) (Auto) 23 % (24-48) Monocytes (%) (Auto) 10 % (0-9) Eosinophils (%) (Auto) 3 % (0-3) Basophils (%) (Auto) 1 % (0-3) Neutrophils # (Auto) 3.7 x10^3uL (1.8-7.7) Lymphocytes # (Auto) 1.3 x10^3/uL (1.0-4.8) Monocytes # (Auto) 0.5 x10^3/uL (0.0-1.1) Eosinophils # (Auto) 0.2 x10^3/uL (0.0-0.7) Basophils # (Auto) 0.0 x10^3/uL (0.0-0.2) Sodium Level 145 mmol/L (136-145) Potassium Level 4.1 mmol/L (3.5-5.1) Chloride Level 111 mmol/L (98-107) Carbon Dioxide Level 26 mmol/L (21-32) Anion Gap 8 (6-14) Blood Urea Nitrogen 5 mg/dL (7-20) Creatinine 0.6 mg/dL (0.6-1.0) Estimated GFR (Cockcroft-Gault) 100.0 BUN/Creatinine Ratio 8 (6-20) Glucose Level 95 mg/dL (70-99) Calcium Level 8.4 mg/dL (8.5-10.1) Magnesium Level 1.7 mg/dL (1.8-2.4) Total Bilirubin 0.2 mg/dL (0.2-1.0) Aspartate Amino Transf (AST/SGOT) 44 U/L (15-37) Alanine Aminotransferase (ALT/SGPT) 50 U/L (14-59) Alkaline Phosphatase 75 U/L (46-116) Total Protein 5.6 g/dL (6.4-8.2) Albumin 2.4 g/dL (3.4-5.0) Albumin/Globulin Ratio 0.8 (1.0-1.7) Medications Current Medications Sodium Chloride 500 ml @ 500 mls/hr 1X ONCE IV Last administered on 22:31; Start 08/08/17 at 21:00; Stop 08/08/17 at 21:59; Status DC Sodium Chloride 1,000 ml @ 100 mls/hr Q10H IV Last administered on 08/08/17 22:37; Start 08/08/17 at 22:30; Stop 08/09/17 at 08:24; Status DC Fentanyl Citrate (Fentanyl 2ml Vial) 50 mcg PRN Q2HR PRN IV SEVERE PAIN Last administered on 08/10/17 07:51; Start 08/08/17 at 20:45 Fentanyl Citrate (Fentanyl 2ml Vial) 25 mcg PRN Q2HR PRN IV MODERATE PAIN Last administered on 08/08/17 22:39; Start 08/08/17 at 20:45 Lorazepam (Ativan) 0.5 mg 1X ONCE IV ; Start 08/08/17 at 21:30; Stop at 21:31; Status DC Ondansetron HCl (Zofran) 4 mg PRN Q4HRS PRN IV NAUSEA/VOMITING; Start at 20:45 Pantoprazole Sodium (Protonix Vial) 40 mg BIDAC IVP Last administered on 07:50; Start 08/08/17 at 21:00; Stop 08/10/17 at 11:01; Status DC Info (Do NOT chart on this placeholder) 1 each 1X ONCE MC ; Start 08/09/17 at 10:00; Stop 08/09/17 at 10:01; Status UNV Pneumococcal Polyvalent Vaccine (Do NOT chart on this placeholder) 1 each 1X ONCE MC ; Start 08/09/17 at 10:00; Stop 08/09/17 at 10:01; Status UNV Influenza Virus Vaccine Quadrival (Fluarix Quad [id number] Syringe) 0.5 ml ONCE ONCE VAX IM Last administered on 08/10/17 14:36; Start 08/09/17 at 09:00; Stop 08/09/17 at 09:01; Status DC Albuterol/ Ipratropium (Duoneb) 3 ml 1X ONCE NEB ; Start 08/09/17 at 06:00; Stop 08/09/17 at 06:01; Status DC Albuterol/ Ipratropium (Duoneb) 3 ml RTQID NEB Last administered on 08/11/17 07:17; Start 08/09/17 at 08:00 Potassium Chloride/Dextrose/ Sod Cl 1,000 ml @ 75 mls/hr [id number] IV Last administered on 08/11/17 02:17; Start 08/09/17 at 08:30 Midazolam HCl (Versed) 2 mg PRN 1X PRN IV PRIOR TO PROCEDURE; Start 08/09/17 at 09:45; Stop 08/10/17 at 09:44; Status DC Fentanyl Citrate (Fentanyl 2ml Vial) 25 mcg PRN Q5MIN PRN IV X 2 DOSES FOR PAIN ; Start 08/09/17 at 09:45; Stop 08/10/17 at 09:44; Status DC Fentanyl Citrate (Fentanyl 2ml Vial) 50 mcg PRN Q5MIN PRN IV X 2 DOSES FOR PAIN ; Start 08/09/17 at 09:45; Stop 08/10/17 at 09:44; Status DC Ringer's Solution 1,000 ml @ 125 mls/hr Q8H IV Last administered on 13:10; Start 08/09/17 at 09:45; Stop 08/09/17 at 21:44; Status DC Lidocaine HCl (Xylocaine-Mpf 1% Vial) 2 ml 1X PRN PRN ID IV START; Start 08/09 at 09:45; Stop 08/10/17 at 09:44; Status DC Fentanyl (Duragesic 25mcg/ Hr Patch) 1 patch Q3DAYS TD Last administered on 12:33; Start 08/09/17 at 12:00 Prednisone (Prednisone) 10 mg DAILY PO Last administered on 08/11/17 08:44; Start 08/09/17 at 13:00 Propofol 20 ml @ As Directed STK-MED ONCE IV ; Start 08/09/17 at 13:12; Stop 08/09/17 at 13:13; Status DC Lidocaine HCl (Lidocaine Pf 2% Vial) 5 ml STK-MED ONCE .ROUTE ; Start 08/09/17 at 13:13; Stop 08/09/17 at 13:14; Status DC Alprazolam (Xanax) 1 mg PRN Q6HRS PRN PO ANXIETY / AGITATION Last administered on 08/11/17 05:16; Start 08/09/17 at 15:45 Pregabalin (Lyrica) 25 mg [id number] PO Last administered on 08/11/17 08:44; Start 08/10/17 at 09:00 Pregabalin (Lyrica) 50 mg HS PO Last administered on 08/10/17 21:09; Start 08/09/17 at 21:00 Iron Sucrose 200 mg/Sodium Chloride 110 ml @ 55 mls/hr 1X ONCE IV Last administered on 08/10/17 09:48; Start 08/10/17 at 09:00; Stop 08/10/17 at 10 :59; Status DC Acetaminophen/ Hydrocodone Bitart (Lortab 7.5/325) 1 tab PRN Q6HRS PRN PO PAIN Last administered on 08/11/17 05:16; Start 08/10/17 at 10:15 Pantoprazole Sodium (Protonix) 40 mg BIDAC PO Last administered on 08/11/17 05:16; Start 08/10/17 at 16:30 Active Scripts Active Colace (Docusate Sodium) 100 Mg Capsule 100 Mg PO BID Reported Savella (Milnacipran Hcl) 50 Mg Tablet 1 Tab PO BID Estrostep Fe-28 Tablet (Noreth A-Et Estra/Fe Fumarate) 1 Each Tablet 1 Each PO Albuterol Sulfate Conc Neb Soln (Albuterol Sulfate) 2.5 Mg/0.5 Ml Vial.neb 1 Vial NEB Q6HRS Flovent 100MCG Diskus (Fluticasone Propionate) 100 Mcg Disk.w.dev 1 Puff IH BID Probiotic (L.acidoph & Paracasei,B.lactis) 1 Each Capsule 1 Each PO Alprazolam 1 Mg Tablet 1 Mg PO PRN Q6HRS PRN [place] ER (Hydrocodone Bitartrate) 20 Mg Tab.er.24h 20 Mg PO Butrans (Buprenorphine) 1 Each Patch.tdwk 1 Patch TP WEEKLY Multi-Vitamin Daily (Multivitamin) 1 Each Tablet 1 Each PO QID Lyrica (Pregabalin) 50 Mg Capsule 50 Mg PO HS Lyrica (Pregabalin) 50 Mg Capsule 25 Mg PO [id number] Vitals/I & O Vital Sign - Last 24 Hours 08/10/17 08/10/17 08/10/17 08/10/17 11:00 11:07 14:31 15:00 Temp 98.1 98.1 Pulse 85 109 Resp 18 22 20 B/P (MAP) 116/70 (85) 115/70 (85) Pulse Ox 98 96 O2 Delivery Room Air Nasal Cannula Room Air Nasal Cannula O2 Flow Rate 1.0 2.0 08/10/17 08/10/17 08/10/17 08/10/17 15:24 15:34 19:00 19:11 Temp 97.7 97.7 Pulse 90 Resp 18 22 B/P (MAP) 161/83 (109) Pulse Ox 96 O2 Delivery Room Air Room Air Room Air 08/10/17 08/10/17 08/10/17 08/11/17 20:00 22:06 23:00 03:00 Temp 97.7 97.9 97.7 97.9 Pulse 86 84 Resp 21 18 B/P (MAP) 110/63 (79) 120/67 (84) Pulse Ox 96 98 O2 Delivery Nasal Cannula Nasal Cannula Room Air Nasal Cannula O2 Flow Rate 2.0 2.0 2.0 08/11/17 08/11/17 08/11/17 08/11/17 05:16 06:16 07:00 07:18 Temp 97.7 97.7 Pulse 96 Resp 18 B/P (MAP) 134/77 (96) Pulse Ox 96 97 O2 Delivery Nasal Cannula Nasal Cannula Nasal Cannula Nasal Cannula O2 Flow Rate 2.0 2.0 2.0 1.0 DIMITRI RODRIGUEZ MD Aug 11, 2017 09:59
[2017-08-11 11:00] VITALS: BP 120/78
[2017-08-11 12:06] LABS: HEMATOCRIT 26.2 % (36.0-47.0); HEMOGLOBIN 8.3 g/dL (12.0-15.5)
--- NOTE | 2017-08-11 12:29 | PN ---
DATE: 08/11/2017 SUBJECTIVE: The patient is sitting up in her chair, eating her lunch comfortably in no apparent distress. She continued to have aches and pains, but generally feeling much better. Her pain is much better controlled. PHYSICAL EXAMINATION: GENERAL: When I examined her, she was pale, but no jaundice, cyanosis or thyromegaly. No jugular venous distention. No limb edema. VITAL SIGNS: Her heart rate was 102, blood pressure was 120/78, temperature was 98.6, respiratory rate was 18 and oxygen saturation was 97% on 2 liters of oxygen. The rest of clinical exam is stable and has not really changed. LABORATORY DATA: This morning showed a serum sodium of 145, potassium 4.1, chloride 111, bicarbonate 20, anion gap of 8, BUN 5, creatinine 0.6, estimated GFR was 100 mL per minute. Her glucose was 85, calcium was 8.5, magnesium was 1.7. Total bilirubin, AST, ALT, alkaline phosphatase were normal. Total protein 5.6, albumin 2.4. White cell count was 5800, hemoglobin was 7.2, hematocrit 22.2, MCV 82 and platelet count of 245,000. ASSESSMENT: 1. Acute blood loss anemia with hemoglobin that dropped down to 6.4, hematocrit 20. 2. 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 3. She apparently is known to have hepatitis C; however, her liver enzymes are all within normal range. 4. Other medical problems including chronic obstructive pulmonary disease, rheumatoid arthritis, fibromyalgia. PLAN: My plan is to discontinue the IV fluid. Continue with PPI, continue with IV Venofer. I started her on ferrous sulfate and ascorbic acid. 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 Rajput for her right shoulder pain. HUEY WALTERS MD DR: NEHAL/valentino JOB#: [id number] / [id number]
[2017-08-11] MEDS ORDERED: IRON SUCROSE COMPLEX 400 MG in IV NORMAL SALINE 250ML 250 ML IV ONE (12:30)
[2017-08-11] MEDS: FERROUS SULFATE 325 MG TABLET. PO SCH ×2 (13:06→18:27)
[2017-08-11] MEDS: ASCORBIC ACID 500 MG TABLET PO SCH ×2 (13:06→21:39)
--- NOTE | 2017-08-11 14:36 | PDOC2 ---
CONSULT Date of Consult Date of Consult DATE: 08/11/17 TIME: 14:23 Reason for Consult Reason for Consult: Chest Palpitations Identification/Chief Complaint Chief Complaint Chest Palpitations Problems: Source Source: Patient History of Present Illness Reason for Visit: Ms. Ortega is a 66 yr old female that presented with heart palpitations, especially from anxiety and sometimes from exertion. This has been going on for a couple of years, ever since she was diagnosed with fibromyalgia. She states that she feels her "heart beating fast" even when she isn't exerting herself, and during these episodes, it feels as though she has been exercising heavily. She also stated that she has dyspnea during these episodes as well, which could be a byproduct of her COPD history. The episodes can last up to 10 minutes, but after breathing exercises and rest, they seem to go away. Breathing exercises and Xanax help with her symptomatic episodes. Stress especially, and excercise ( sometimes) bring on the episodes. One episode had associated right arm pain. She stated that a lot of her stresses were bothering her. Most of the visit was spent detailing how her living situation and family were contributing to her anxiety, and that was what was possibly leading to her chest palpitations. Past Medical History Past Medical History Significant for fibromyalgia, rheumatoid arthritis, COPD on oxygen. She has a history also of severe anemia. According to her, her hemoglobin dropped down to 3 grams last year and was rushed from [facility] and was extensively investigated. She has upper and lower GI endoscopy, had multiple blood transfusions, but they have never found the site of bleeding according to her. Cardiovascular: No pertinent hx Pulmonary: COPD, Other GI: No pertinent hx Psych: Anxiety, Depression Musculoskeletal: Osteoarthritis Renal/: No pertinent hx Past Surgical History Past Surgical History Significant for cholecystectomy, total abdominal hysterectomy, bilateral salpingo-oophorectomy, bilateral total knee arthroplasty and left shoulder surgery. She has also esophagogastroduodenoscopy as well as colonoscopy. Past Surgical History: Total knee replacement, Hysterectomy, Other Family History Family History Her father at age of 78 because of prostate cancer, one older brother also of prostate cancer. She has 3 other brothers still alive, two of them live in [place], [place], and one lives in [place], she has 1 older sister that has . She does not know the cause of . Her mother at age of 58 because of complications of rheumatoid arthritis. Family History: No Significant Social History Social History She is and lives with her and one of her sons lives with them. She is an ex-smoker, quit about 30 years ago (with a 6 pack year history). She does not drink alcohol or use recreational drugs. 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 Quit ALCOHOL: none Drugs: None Current Medications Current Medications Current Medications Sodium Chloride 500 ml @ 500 mls/hr 1X ONCE IV Last administered on 22:31; Start 08/08/17 at 21:00; Stop 08/08/17 at 21:59; Status DC Sodium Chloride 1,000 ml @ 100 mls/hr Q10H IV Last administered on 08/08/17 22:37; Start 08/08/17 at 22:30; Stop 08/09/17 at 08:24; Status DC Fentanyl Citrate (Fentanyl 2ml Vial) 50 mcg PRN Q2HR PRN IV SEVERE PAIN Last administered on 08/10/17 07:51; Start 08/08/17 at 20:45 Fentanyl Citrate (Fentanyl 2ml Vial) 25 mcg PRN Q2HR PRN IV MODERATE PAIN Last administered on 08/08/17 22:39; Start 08/08/17 at 20:45 Lorazepam (Ativan) 0.5 mg 1X ONCE IV ; Start 08/08/17 at 21:30; Stop at 21:31; Status DC Ondansetron HCl (Zofran) 4 mg PRN Q4HRS PRN IV NAUSEA/VOMITING; Start at 20:45 Pantoprazole Sodium (Protonix Vial) 40 mg BIDAC IVP Last administered on 07:50; Start 08/08/17 at 21:00; Stop 08/10/17 at 11:01; Status DC Info (Do NOT chart on this placeholder) 1 each 1X ONCE MC ; Start 08/09/17 at 10:00; Stop 08/09/17 at 10:01; Status UNV Pneumococcal Polyvalent Vaccine (Do NOT chart on this placeholder) 1 each 1X ONCE MC ; Start 08/09/17 at 10:00; Stop 08/09/17 at 10:01; Status UNV Influenza Virus Vaccine Quadrival (Fluarix Quad 3396-0065 Syringe) 0.5 ml ONCE ONCE VAX IM Last administered on 08/10/17 14:36; Start 08/09/17 at 09:00; Stop 08/09/17 at 09:01; Status DC Albuterol/ Ipratropium (Duoneb) 3 ml 1X ONCE NEB ; Start 08/09/17 at 06:00; Stop 08/09/17 at 06:01; Status DC Albuterol/ Ipratropium (Duoneb) 3 ml RTQID NEB Last administered on 08/11/17 11:13; Start 08/09/17 at 08:00 Potassium Chloride/Dextrose/ Sod Cl 1,000 ml @ 75 mls/hr [id number] IV Last administered on 08/11/17 02:17; Start 08/09/17 at 08:30; Stop 08/11/17 at 12 :10; Status DC Midazolam HCl (Versed) 2 mg PRN 1X PRN IV PRIOR TO PROCEDURE; Start 08/09/17 at 09:45; Stop 08/10/17 at 09:44; Status DC Fentanyl Citrate (Fentanyl 2ml Vial) 25 mcg PRN Q5MIN PRN IV X 2 DOSES FOR PAIN ; Start 08/09/17 at 09:45; Stop 08/10/17 at 09:44; Status DC Fentanyl Citrate (Fentanyl 2ml Vial) 50 mcg PRN Q5MIN PRN IV X 2 DOSES FOR PAIN ; Start 08/09/17 at 09:45; Stop 08/10/17 at 09:44; Status DC Ringer's Solution 1,000 ml @ 125 mls/hr Q8H IV Last administered on 13:10; Start 08/09/17 at 09:45; Stop 08/09/17 at 21:44; Status DC Lidocaine HCl (Xylocaine-Mpf 1% Vial) 2 ml 1X PRN PRN ID IV START; Start 08/09 at 09:45; Stop 08/10/17 at 09:44; Status DC Fentanyl (Duragesic 25mcg/ Hr Patch) 1 patch Q3DAYS TD Last administered on 12:33; Start 08/09/17 at 12:00 Prednisone (Prednisone) 10 mg DAILY PO Last administered on 08/11/17 08:44; Start 08/09/17 at 13:00 Propofol 20 ml @ As Directed STK-MED ONCE IV ; Start 08/09/17 at 13:12; Stop 08/09/17 at 13:13; Status DC Lidocaine HCl (Lidocaine Pf 2% Vial) 5 ml STK-MED ONCE .ROUTE ; Start 08/09/17 at 13:13; Stop 08/09/17 at 13:14; Status DC Alprazolam (Xanax) 1 mg PRN Q6HRS PRN PO ANXIETY / AGITATION Last administered on 08/11/17 05:16; Start 08/09/17 at 15:45 Pregabalin (Lyrica) 25 mg [id number] PO Last administered on 08/11/17 13:06; Start 08/10/17 at 09:00 Pregabalin (Lyrica) 50 mg HS PO Last administered on 08/10/17 21:09; Start 08/09/17 at 21:00 Iron Sucrose 200 mg/Sodium Chloride 110 ml @ 55 mls/hr 1X ONCE IV Last administered on 08/10/17 09:48; Start 08/10/17 at 09:00; Stop 08/10/17 at 10 :59; Status DC Acetaminophen/ Hydrocodone Bitart (Lortab 7.5/325) 1 tab PRN Q6HRS PRN PO PAIN Last administered on 08/11/17 13:06; Start 08/10/17 at 10:15 Pantoprazole Sodium (Protonix) 40 mg BIDAC PO Last administered on 08/11/17 05:16; Start 08/10/17 at 16:30 Iron Sucrose 400 mg/Sodium Chloride 270 ml @ 90 mls/hr 1X ONCE IV Last administered on 08/11/17 13:05; Start 08/11/17 at 12:30; Stop 08/11/17 at 15 :29 Ferrous Sulfate (Feosol) 325 mg BIDWMEALS PO Last administered on 08/11/17 13 :06; Start 08/11/17 at 12:30 Ascorbic Acid (Vitamin C) 500 mg BID PO Last administered on 08/11/17 13:06; Start 08/11/17 at 12:30 Active Scripts Active Colace (Docusate Sodium) 100 Mg Capsule 100 Mg PO BID Reported Savella (Milnacipran Hcl) 50 Mg Tablet 1 Tab PO BID Estrostep Fe-28 Tablet (Noreth A-Et Estra/Fe Fumarate) 1 Each Tablet 1 Each PO Albuterol Sulfate Conc Neb Soln (Albuterol Sulfate) 2.5 Mg/0.5 Ml Vial.neb 1 Vial NEB Q6HRS Flovent 100MCG Diskus (Fluticasone Propionate) 100 Mcg Disk.w.dev 1 Puff IH BID Probiotic (L.acidoph & Paracasei,B.lactis) 1 Each Capsule 1 Each PO Alprazolam 1 Mg Tablet 1 Mg PO PRN Q6HRS PRN Hysingla ER (Hydrocodone Bitartrate) 20 Mg Tab.er.24h 20 Mg PO Butrans (Buprenorphine) 1 Each Patch.tdwk 1 Patch TP WEEKLY Multi-Vitamin Daily (Multivitamin) 1 Each Tablet 1 Each PO QID Lyrica (Pregabalin) 50 Mg Capsule 50 Mg PO HS Lyrica (Pregabalin) 50 Mg Capsule 25 Mg PO [id number] Allergies Allergies: Coded Allergies: codeine (Verified Allergy, Intermediate, 08/09/17) Physical Exam General: Alert, Oriented X3, Cooperative HEENT: Atraumatic, PERRLA, EOMI Lungs: Clear to auscultation Heart: Regular rate, Normal S1, Normal S2 Abdomen: Normal bowel sounds, Soft, No tenderness Vitals VITALS Vital Signs Date Time Temp Pulse Resp B/P (MAP) Pulse Ox O2 Delivery O2 Flow Rate FiO2 08/11/17 13:06 Nasal Cannula 1.5 08/11/17 11:14 97 08/11/17 11:00 98.0 102 18 120/78 (92) 98.0 Labs Labs Laboratory Tests Test 08/09/17 18:00 08/10/17 04:30 08/10/17 12:15 08/10/17 18:00 Hemoglobin 8.7 g/dL (12.0-15.5) 7.7 g/dL (12.0-15.5) 8.6 g/dL (12.0-15.5) 8.2 g/dL (12.0-15.5) Hematocrit 26.7 % (36.0-47.0) 23.3 % (36.0-47.0) 26.8 % (36.0-47.0) 25.6 % (36.0-47.0) Mean Corpuscular Hemoglobin Concent 33 g/dL (31-37) 33 g/dL (31-37) 32 g/dL (31-37) 32 g/dL (31-37) White Blood Count 6.7 x10^3/uL (4.0-11.0) Red Blood Count 2.85 x10^6/uL (3.50-5.40) Mean Corpuscular Volume 82 fL (79-100) Mean Corpuscular Hemoglobin 27 pg (25-35) Red Cell Distribution Width 18.2 % (11.5-14.5) Platelet Count 258 x10^3/uL (140-400) Neutrophils (%) (Auto) 73 % (31-73) Lymphocytes (%) (Auto) 18 % (24-48) Monocytes (%) (Auto) 7 % (0-9) Eosinophils (%) (Auto) 1 % (0-3) Basophils (%) (Auto) 1 % (0-3) Neutrophils # (Auto) 4.9 x10^3uL (1.8-7.7) Lymphocytes # (Auto) 1.2 x10^3/uL (1.0-4.8) Monocytes # (Auto) 0.5 x10^3/uL (0.0-1.1) Eosinophils # (Auto) 0.1 x10^3/uL (0.0-0.7) Basophils # (Auto) 0.0 x10^3/uL (0.0-0.2) Erythrocyte Sedimentation Rate 10 (0-25) Sodium Level 143 mmol/L (136-145) Potassium Level 3.9 mmol/L (3.5-5.1) Chloride Level 111 mmol/L (98-107) Carbon Dioxide Level 25 mmol/L (21-32) Anion Gap 7 (6-14) Blood Urea Nitrogen 5 mg/dL (7-20) Creatinine 0.6 mg/dL (0.6-1.0) Estimated GFR (Cockcroft-Gault) 100.0 BUN/Creatinine Ratio 8 (6-20) Glucose Level 109 mg/dL (70-99) Calcium Level 8.3 mg/dL (8.5-10.1) Total Bilirubin 0.7 mg/dL (0.2-1.0) Aspartate Amino Transf (AST/SGOT) 37 U/L (15-37) Alanine Aminotransferase (ALT/SGPT) 32 U/L (14-59) Alkaline Phosphatase 72 U/L (46-116) C-Reactive Protein, Quantitative 4.6 mg/L (0-3.3) Total Protein 5.9 g/dL (6.4-8.2) Albumin 2.4 g/dL (3.4-5.0) Albumin/Globulin Ratio 0.7 (1.0-1.7) Test 08/11/17 04:35 08/11/17 11:50 White Blood Count 5.8 x10^3/uL (4.0-11.0) Red Blood Count 2.71 x10^6/uL (3.50-5.40) Hemoglobin 7.2 g/dL (12.0-15.5) 8.3 g/dL (12.0-15.5) Hematocrit 22.2 % (36.0-47.0) 26.2 % (36.0-47.0) Mean Corpuscular Volume 82 fL (79-100) Mean Corpuscular Hemoglobin 27 pg (25-35) Mean Corpuscular Hemoglobin Concent 32 g/dL (31-37) 32 g/dL (31-37) Red Cell Distribution Width 18.1 % (11.5-14.5) Platelet Count 245 x10^3/uL (140-400) Neutrophils (%) (Auto) 64 % (31-73) Lymphocytes (%) (Auto) 23 % (24-48) Monocytes (%) (Auto) 10 % (0-9) Eosinophils (%) (Auto) 3 % (0-3) Basophils (%) (Auto) 1 % (0-3) Neutrophils # (Auto) 3.7 x10^3uL (1.8-7.7) Lymphocytes # (Auto) 1.3 x10^3/uL (1.0-4.8) Monocytes # (Auto) 0.5 x10^3/uL (0.0-1.1) Eosinophils # (Auto) 0.2 x10^3/uL (0.0-0.7) Basophils # (Auto) 0.0 x10^3/uL (0.0-0.2) Sodium Level 145 mmol/L (136-145) Potassium Level 4.1 mmol/L (3.5-5.1) Chloride Level 111 mmol/L (98-107) Carbon Dioxide Level 26 mmol/L (21-32) Anion Gap 8 (6-14) Blood Urea Nitrogen 5 mg/dL (7-20) Creatinine 0.6 mg/dL (0.6-1.0) Estimated GFR (Cockcroft-Gault) 100.0 BUN/Creatinine Ratio 8 (6-20) Glucose Level 95 mg/dL (70-99) Calcium Level 8.4 mg/dL (8.5-10.1) Magnesium Level 1.7 mg/dL (1.8-2.4) Total Bilirubin 0.2 mg/dL (0.2-1.0) Aspartate Amino Transf (AST/SGOT) 44 U/L (15-37) Alanine Aminotransferase (ALT/SGPT) 50 U/L (14-59) Alkaline Phosphatase 75 U/L (46-116) Total Protein 5.6 g/dL (6.4-8.2) Albumin 2.4 g/dL (3.4-5.0) Albumin/Globulin Ratio 0.8 (1.0-1.7) Laboratory Tests Test 08/10/17 18:00 08/11/17 04:35 08/11/17 11:50 Hemoglobin 8.2 g/dL (12.0-15.5) 7.2 g/dL (12.0-15.5) 8.3 g/dL (12.0-15.5) Hematocrit 25.6 % (36.0-47.0) 22.2 % (36.0-47.0) 26.2 % (36.0-47.0) Mean Corpuscular Hemoglobin Concent 32 g/dL (31-37) 32 g/dL (31-37) 32 g/dL (31-37) White Blood Count 5.8 x10^3/uL (4.0-11.0) Red Blood Count 2.71 x10^6/uL (3.50-5.40) Mean Corpuscular Volume 82 fL (79-100) Mean Corpuscular Hemoglobin 27 pg (25-35) Red Cell Distribution Width 18.1 % (11.5-14.5) Platelet Count 245 x10^3/uL (140-400) Neutrophils (%) (Auto) 64 % (31-73) Lymphocytes (%) (Auto) 23 % (24-48) Monocytes (%) (Auto) 10 % (0-9) Eosinophils (%) (Auto) 3 % (0-3) Basophils (%) (Auto) 1 % (0-3) Neutrophils # (Auto) 3.7 x10^3uL (1.8-7.7) Lymphocytes # (Auto) 1.3 x10^3/uL (1.0-4.8) Monocytes # (Auto) 0.5 x10^3/uL (0.0-1.1) Eosinophils # (Auto) 0.2 x10^3/uL (0.0-0.7) Basophils # (Auto) 0.0 x10^3/uL (0.0-0.2) Sodium Level 145 mmol/L (136-145) Potassium Level 4.1 mmol/L (3.5-5.1) Chloride Level 111 mmol/L (98-107) Carbon Dioxide Level 26 mmol/L (21-32) Anion Gap 8 (6-14) Blood Urea Nitrogen 5 mg/dL (7-20) Creatinine 0.6 mg/dL (0.6-1.0) Estimated GFR (Cockcroft-Gault) 100.0 BUN/Creatinine Ratio 8 (6-20) Glucose Level 95 mg/dL (70-99) Calcium Level 8.4 mg/dL (8.5-10.1) Magnesium Level 1.7 mg/dL (1.8-2.4) Total Bilirubin 0.2 mg/dL (0.2-1.0) Aspartate Amino Transf (AST/SGOT) 44 U/L (15-37) Alanine Aminotransferase (ALT/SGPT) 50 U/L (14-59) Alkaline Phosphatase 75 U/L (46-116) Total Protein 5.6 g/dL (6.4-8.2) Albumin 2.4 g/dL (3.4-5.0) Albumin/Globulin Ratio 0.8 (1.0-1.7) Assessment/Plan Assessment/Plan A and P 66 year old Lady with a history of fibromyalgia, anxiety, COPD, and rheumatoid arthritis. Her chest palpitations seemed more likely to be of a psychological rather than cardiac origin. Also could be multifactorial from anemia, and ulcerations, as well as stress of living situation. At this time I would just monitor during her hospital stay and see if we can capture some of this episodes in the monitor. Thank you for allowing me to care for this patient. DANIEL TERRY MD Aug 11, 2017 14:36
[2017-08-11 15:00] VITALS: BP 117/82
[2017-08-11 18:26] LABS: HEMOGLOBIN 8.1 g/dL (12.0-15.5)
[2017-08-11 19:00] VITALS: BP 143/84
[2017-08-11] MEDS: PREGABALIN 50 MG CAPSULE PO SCH (22:07)
[2017-08-11 23:00] VITALS: BP 129/82
[2017-08-12 03:00] VITALS: BP 134/78
[2017-08-12] MEDS: HYDROcodone/APAP 7.5/325MG 1 TAB TABLET PO PRN (03:45)
[2017-08-12 04:57] LABS: BASO % 1 % (0-3); EOS % 2 % (0-3); HEMATOCRIT 24.1 % (36.0-47.0); HEMOGLOBIN 7.7 g/dL (12.0-15.5); LYMPH # 1.2 x10^3/uL (1.0-4.8); LYMPH % 17 % (24-48); MEAN CORPUSCULAR HEMOGLOBIN 26 pg (25-35); MEAN CORPUSCULAR HGB CONC 32 g/dL (31-37); MEAN CORPUSCULAR VOLUME 82 fL (79-100); MONO % 8 % (0-9); NEUT % 72 % (31-73); PLATELET COUNT 284 x10^3/uL (140-400); RED BLOOD COUNT 2.93 x10^6/uL (3.50-5.40); RED CELL DISTRIBUTION WIDTH 18.4 % (11.5-14.5); WHITE BLOOD COUNT 7.2 x10^3/uL (4.0-11.0)
[2017-08-12 05:12] LABS: ALBUMIN 2.5 g/dL (3.4-5.0); ALBUMIN/GLOBULIN RATIO 0.7 (1.0-1.7); CALCIUM 8.1 mg/dL (8.5-10.1); CREATININE 0.5 mg/dL (0.6-1.0); GFR 123.4; POTASSIUM 3.4 mmol/L (3.5-5.1); TOTAL BILIRUBIN 0.2 mg/dL (0.2-1.0)
[2017-08-12 07:00] VITALS: BP 125/68
[2017-08-12] MEDS: IPRATRPIUM/ALBUTEROL 0.5/2.5MG 3 ML NEBU. NEB SCH ×3 (08:07→16:25)
[2017-08-12] MEDS: PANTOPRAZOLE 40 MG TABLET.DR. PO SCH ×2 (09:27→17:03)
[2017-08-12] MEDS: PREGABALIN 25 MG CAPSULE PO SCH ×2 (09:27→15:35)
[2017-08-12] MEDS: FERROUS SULFATE 325 MG TABLET. PO SCH ×2 (09:27→17:03)
[2017-08-12] MEDS: ASCORBIC ACID 500 MG TABLET PO SCH (09:27)
[2017-08-12] MEDS: predniSONE 10 MG TABLET PO SCH (09:27)
[2017-08-12] MEDS: fentaNYL 25MCG/HR PATCH 1 PATCH PATCH.TD72 TD SCH (09:28)
[2017-08-12 11:00] VITALS: BP 131/77
[2017-08-12] MEDS ORDERED: POLYETHYLENE GLYCOL 3350 17 GM PACKET. PO PRN (11:15)
--- NOTE | 2017-08-12 11:15 | PDOC ---
Subjective: Subjective: No GI complaints although asking to drink soda to promote BM. No bleeding. Objective: Vital Signs: Vital Signs Date Time Temp Pulse Resp B/P (MAP) Pulse Ox O2 Delivery O2 Flow Rate FiO2 08/12/17 09:28 96 Nasal Cannula 1.0 08/12/17 07:00 98.1 80 16 125/68 (87) 98.1 Labs: Laboratory Tests Test 08/11/17 11:50 08/11/17 18:00 08/12/17 03:55 Hemoglobin 8.3 g/dL 8.1 g/dL 7.7 g/dL Hematocrit 26.2 % 25.0 % 24.1 % Mean Corpuscular Hemoglobin Concent 32 g/dL 32 g/dL 32 g/dL White Blood Count 7.2 x10^3/uL Red Blood Count 2.93 x10^6/uL Mean Corpuscular Volume 82 fL Mean Corpuscular Hemoglobin 26 pg Red Cell Distribution Width 18.4 % Platelet Count 284 x10^3/uL Neutrophils (%) (Auto) 72 % Lymphocytes (%) (Auto) 17 % Monocytes (%) (Auto) 8 % Eosinophils (%) (Auto) 2 % Basophils (%) (Auto) 1 % Neutrophils # (Auto) 5.2 x10^3uL Lymphocytes # (Auto) 1.2 x10^3/uL Monocytes # (Auto) 0.6 x10^3/uL Eosinophils # (Auto) 0.1 x10^3/uL Basophils # (Auto) 0.0 x10^3/uL Sodium Level 142 mmol/L Potassium Level 3.4 mmol/L Chloride Level 107 mmol/L Carbon Dioxide Level 28 mmol/L Anion Gap 7 Blood Urea Nitrogen 4 mg/dL Creatinine 0.5 mg/dL Estimated GFR (Cockcroft-Gault) 123.4 BUN/Creatinine Ratio 8 Glucose Level 102 mg/dL Calcium Level 8.1 mg/dL Total Bilirubin 0.2 mg/dL Aspartate Amino Transf (AST/SGOT) 23 U/L Alanine Aminotransferase (ALT/SGPT) 42 U/L Alkaline Phosphatase 80 U/L Total Protein 6.0 g/dL Albumin 2.5 g/dL Albumin/Globulin Ratio 0.7 PE: GEN: NAD LUNGS: nasal cannula HEART: RRR ABD: NABS, S/ND/NT NEURO/PSYCH: A & O 3 A/P: Large hiatal hernia w/ Deangelo lesions Gastric ulcers Anemia - Hgb stable but down to 7.7 today Melena - no recurrence -- Continue PPI, consider chronic iron. Avoid NSAIDs. Add Miralax PRN. LUTHER POTTS Aug 12, 2017 11:15
[2017-08-12 12:30] LABS: HEMATOCRIT 28.7 % (36.0-47.0); HEMOGLOBIN 9.1 g/dL (12.0-15.5)
--- NOTE | 2017-08-12 13:06 | DS ---
DATE OF DISCHARGE: 08/12/2017 DATE OF ADMISSION: 08/08/2017 DATE OF DISCHARGE: 08/12/2017 HOSPITAL COURSE: The patient is a 66-year-old female patient who came initially to [facility] Emergency Room with a complaint of nausea, vomiting, diarrhea and black tarry stool. She was found to be extremely anemic. In fact, her hemoglobin on arrival there was 7.2, by the time she arrived here, it dropped down to 6.4 and her hematocrit down to 20.1 with normal white cell count and platelets. We did transfuse her 2 units of packed RBCs, started on IV proton pump inhibitor. Given that she has rheumatoid arthritis, was on nonsteroidal anti-inflammatory medications, we did consult the technical product manager and he started her on prednisone 10 mg once a day. We monitored her H and H and it remained somewhat stable. She has no further episodes of hematemesis, melena or hematochezia. She did complain of pain in her right shoulder. Apparently she has bicipital tendinitis for which she was seen by Dr. Canela who recommended followup. I did start her on fentanyl patch as well as put her back on her Lyrica and as she remained stable, a decision was made to discharge her home with home health. PHYSICAL EXAMINATION: GENERAL: When I examined her today, she was resting slightly propped up in bed, in no apparent respiratory distress, slightly pale, no jaundice, cyanosis, or thyromegaly. No jugular distension, no limb edema. VITAL SIGNS: Her heart rate was 80, blood pressure was 125/68, temperature was 98.1, respiratory rate was 16, and oxygen saturation was 95% on 1 liter of oxygen. HEAD, EYES, EARS, NOSE AND THROAT: Showed normocephalic, atraumatic. NECK: Supple. HEART: Showed normal first and second heart sounds with no gallop, rub or murmur. CHEST: Clear to auscultation. No crepitation or rhonchi. ABDOMEN: Distended, soft, nontender. NEUROLOGIC: She was awake, alert, responding appropriately. Cranial nerves intact. EXTREMITIES: She moves extremities without difficulty. She ambulates without assistance or assistive devices. INTAKE AND OUTPUT: Her intake was 820, output was 1000. LABORATORY DATA: As of this morning showed that her white cell count was 7200, hemoglobin 7.7, hematocrit 24, MCV 82 and platelet count of 284,000. Her chemistry showed a serum sodium 142, potassium 3.4, chloride 107, bicarbonate 28, anion gap of 7, BUN 4, creatinine 0.5, estimated GFR was 123 mL per minute. Her glucose was 102, calcium was 8.1. Total bilirubin, AST, ALT, alkaline phosphatase were normal. Total protein 6, albumin 2.5. DISCHARGE MEDICATIONS: She was discharged home to continue on MiraLax 17 grams daily p.r.n. for constipation, ascorbic acid 500 mg twice a day, ferrous sulfate 325 mg twice a day with meals, Protonix 40 mg twice a day, hydrocodone/APAP 7.5/325 one tablet every 6 hours as needed, pregabalin 25 mg twice a day, pregabalin 50 mg at bedtime, alprazolam 1 mg every 6 hours as needed, prednisone 2 mg daily, fentanyl patch 75 mcg per hour topically every 72 hours, albuterol, DuoNeb 4 times a day. FINAL DISCHARGE DIAGNOSES: 1. Acute blood loss anemia, status post multiple transfusions. 2. EGD showed that she has hiatal hernia with Deangelo lesion and gastric peptic ulcers consistent with nonsteroidal anti-inflammatory induced peptic ulcer disease for which she is now on a proton pump inhibitor and on iron supplement. 3. The patient apparently is known to have hepatitis C; however, her liver enzymes are all within normal range. 4. Chronic obstructive pulmonary disease for which she is on DuoNeb and oxygen. 5. Rheumatoid arthritis for which she is now on prednisone. I have made an appointment for her to be seen by Dr. King. 6. Fibromyalgia. 7. Severe protein-calorie malnutrition with serum albumin is only 2.5 grams/dL. HUEY WALTERS MD DR: NEHAL/valentino JOB#: [id number] / [id number]
[2017-08-12 15:00] VITALS: BP 138/77
--- NOTE | 2017-08-12 17:42 | PDOC ---
PROGRESS NOTES Subjective Subjective She continues with right shoulder pain on movement. Objective Objective Vital Signs Date Time Temp Pulse Resp B/P (MAP) Pulse Ox O2 Delivery O2 Flow Rate FiO2 08/12/17 16:26 Nasal Cannula 1.0 08/12/17 15:00 98.2 95 16 138/77 (97) 94 98.2 Intake and Output 08/13/17 07:00 # Voids 4 Physical Exam Physical Exam She had tenderness to palpation over right shoulder and painfully limited ROM at right shoulder but she remains independent with her mobility and self care. Plan Plan of Longterm with out patient follow up when medically stable. Comment Review of Relevant I have reviewed the following items ruba (where applicable) has been applied. Labs Laboratory Tests Test 08/10/17 18:00 08/11/17 04:35 08/11/17 11:50 08/11/17 18:00 Hemoglobin 8.2 g/dL (12.0-15.5) 7.2 g/dL (12.0-15.5) 8.3 g/dL (12.0-15.5) 8.1 g/dL (12.0-15.5) Hematocrit 25.6 % (36.0-47.0) 22.2 % (36.0-47.0) 26.2 % (36.0-47.0) 25.0 % (36.0-47.0) Mean Corpuscular Hemoglobin Concent 32 g/dL (31-37) 32 g/dL (31-37) 32 g/dL (31-37) 32 g/dL (31-37) White Blood Count 5.8 x10^3/uL (4.0-11.0) Red Blood Count 2.71 x10^6/uL (3.50-5.40) Mean Corpuscular Volume 82 fL (79-100) Mean Corpuscular Hemoglobin 27 pg (25-35) Red Cell Distribution Width 18.1 % (11.5-14.5) Platelet Count 245 x10^3/uL (140-400) Neutrophils (%) (Auto) 64 % (31-73) Lymphocytes (%) (Auto) 23 % (24-48) Monocytes (%) (Auto) 10 % (0-9) Eosinophils (%) (Auto) 3 % (0-3) Basophils (%) (Auto) 1 % (0-3) Neutrophils # (Auto) 3.7 x10^3uL (1.8-7.7) Lymphocytes # (Auto) 1.3 x10^3/uL (1.0-4.8) Monocytes # (Auto) 0.5 x10^3/uL (0.0-1.1) Eosinophils # (Auto) 0.2 x10^3/uL (0.0-0.7) Basophils # (Auto) 0.0 x10^3/uL (0.0-0.2) Sodium Level 145 mmol/L (136-145) Potassium Level 4.1 mmol/L (3.5-5.1) Chloride Level 111 mmol/L (98-107) Carbon Dioxide Level 26 mmol/L (21-32) Anion Gap 8 (6-14) Blood Urea Nitrogen 5 mg/dL (7-20) Creatinine 0.6 mg/dL (0.6-1.0) Estimated GFR (Cockcroft-Gault) 100.0 BUN/Creatinine Ratio 8 (6-20) Glucose Level 95 mg/dL (70-99) Calcium Level 8.4 mg/dL (8.5-10.1) Magnesium Level 1.7 mg/dL (1.8-2.4) Total Bilirubin 0.2 mg/dL (0.2-1.0) Aspartate Amino Transf (AST/SGOT) 44 U/L (15-37) Alanine Aminotransferase (ALT/SGPT) 50 U/L (14-59) Alkaline Phosphatase 75 U/L (46-116) Total Protein 5.6 g/dL (6.4-8.2) Albumin 2.4 g/dL (3.4-5.0) Albumin/Globulin Ratio 0.8 (1.0-1.7) Test 08/12/17 03:55 08/12/17 12:05 White Blood Count 7.2 x10^3/uL (4.0-11.0) Red Blood Count 2.93 x10^6/uL (3.50-5.40) Hemoglobin 7.7 g/dL (12.0-15.5) 9.1 g/dL (12.0-15.5) Hematocrit 24.1 % (36.0-47.0) 28.7 % (36.0-47.0) Mean Corpuscular Volume 82 fL (79-100) Mean Corpuscular Hemoglobin 26 pg (25-35) Mean Corpuscular Hemoglobin Concent 32 g/dL (31-37) 32 g/dL (31-37) Red Cell Distribution Width 18.4 % (11.5-14.5) Platelet Count 284 x10^3/uL (140-400) Neutrophils (%) (Auto) 72 % (31-73) Lymphocytes (%) (Auto) 17 % (24-48) Monocytes (%) (Auto) 8 % (0-9) Eosinophils (%) (Auto) 2 % (0-3) Basophils (%) (Auto) 1 % (0-3) Neutrophils # (Auto) 5.2 x10^3uL (1.8-7.7) Lymphocytes # (Auto) 1.2 x10^3/uL (1.0-4.8) Monocytes # (Auto) 0.6 x10^3/uL (0.0-1.1) Eosinophils # (Auto) 0.1 x10^3/uL (0.0-0.7) Basophils # (Auto) 0.0 x10^3/uL (0.0-0.2) Sodium Level 142 mmol/L (136-145) Potassium Level 3.4 mmol/L (3.5-5.1) Chloride Level 107 mmol/L (98-107) Carbon Dioxide Level 28 mmol/L (21-32) Anion Gap 7 (6-14) Blood Urea Nitrogen 4 mg/dL (7-20) Creatinine 0.5 mg/dL (0.6-1.0) Estimated GFR (Cockcroft-Gault) 123.4 BUN/Creatinine Ratio 8 (6-20) Glucose Level 102 mg/dL (70-99) Calcium Level 8.1 mg/dL (8.5-10.1) Total Bilirubin 0.2 mg/dL (0.2-1.0) Aspartate Amino Transf (AST/SGOT) 23 U/L (15-37) Alanine Aminotransferase (ALT/SGPT) 42 U/L (14-59) Alkaline Phosphatase 80 U/L (46-116) Total Protein 6.0 g/dL (6.4-8.2) Albumin 2.5 g/dL (3.4-5.0) Albumin/Globulin Ratio 0.7 (1.0-1.7) Laboratory Tests Test 08/11/17 18:00 08/12/17 03:55 08/12/17 12:05 Hemoglobin 8.1 g/dL (12.0-15.5) 7.7 g/dL (12.0-15.5) 9.1 g/dL (12.0-15.5) Hematocrit 25.0 % (36.0-47.0) 24.1 % (36.0-47.0) 28.7 % (36.0-47.0) Mean Corpuscular Hemoglobin Concent 32 g/dL (31-37) 32 g/dL (31-37) 32 g/dL (31-37) White Blood Count 7.2 x10^3/uL (4.0-11.0) Red Blood Count 2.93 x10^6/uL (3.50-5.40) Mean Corpuscular Volume 82 fL (79-100) Mean Corpuscular Hemoglobin 26 pg (25-35) Red Cell Distribution Width 18.4 % (11.5-14.5) Platelet Count 284 x10^3/uL (140-400) Neutrophils (%) (Auto) 72 % (31-73) Lymphocytes (%) (Auto) 17 % (24-48) Monocytes (%) (Auto) 8 % (0-9) Eosinophils (%) (Auto) 2 % (0-3) Basophils (%) (Auto) 1 % (0-3) Neutrophils # (Auto) 5.2 x10^3uL (1.8-7.7) Lymphocytes # (Auto) 1.2 x10^3/uL (1.0-4.8) Monocytes # (Auto) 0.6 x10^3/uL (0.0-1.1) Eosinophils # (Auto) 0.1 x10^3/uL (0.0-0.7) Basophils # (Auto) 0.0 x10^3/uL (0.0-0.2) Sodium Level 142 mmol/L (136-145) Potassium Level 3.4 mmol/L (3.5-5.1) Chloride Level 107 mmol/L (98-107) Carbon Dioxide Level 28 mmol/L (21-32) Anion Gap 7 (6-14) Blood Urea Nitrogen 4 mg/dL (7-20) Creatinine 0.5 mg/dL (0.6-1.0) Estimated GFR (Cockcroft-Gault) 123.4 BUN/Creatinine Ratio 8 (6-20) Glucose Level 102 mg/dL (70-99) Calcium Level 8.1 mg/dL (8.5-10.1) Total Bilirubin 0.2 mg/dL (0.2-1.0) Aspartate Amino Transf (AST/SGOT) 23 U/L (15-37) Alanine Aminotransferase (ALT/SGPT) 42 U/L (14-59) Alkaline Phosphatase 80 U/L (46-116) Total Protein 6.0 g/dL (6.4-8.2) Albumin 2.5 g/dL (3.4-5.0) Albumin/Globulin Ratio 0.7 (1.0-1.7) Medications Current Medications Sodium Chloride 500 ml @ 500 mls/hr 1X ONCE IV Last administered on 22:31; Start 08/08/17 at 21:00; Stop 08/08/17 at 21:59; Status DC Sodium Chloride 1,000 ml @ 100 mls/hr Q10H IV Last administered on 08/08/17 22:37; Start 08/08/17 at 22:30; Stop 08/09/17 at 08:24; Status DC Fentanyl Citrate (Fentanyl 2ml Vial) 50 mcg PRN Q2HR PRN IV SEVERE PAIN Last administered on 08/10/17 07:51; Start 08/08/17 at 20:45; Stop 08/12/17 at 17 :35; Status DC Fentanyl Citrate (Fentanyl 2ml Vial) 25 mcg PRN Q2HR PRN IV MODERATE PAIN Last administered on 08/08/17 22:39; Start 08/08/17 at 20:45; Stop 08/12/17 at 17 :35; Status DC Lorazepam (Ativan) 0.5 mg 1X ONCE IV ; Start 08/08/17 at 21:30; Stop at 21:31; Status DC Ondansetron HCl (Zofran) 4 mg PRN Q4HRS PRN IV NAUSEA/VOMITING; Start at 20:45; Stop 08/12/17 at 17:35; Status DC Pantoprazole Sodium (Protonix Vial) 40 mg BIDAC IVP Last administered on 07:50; Start 08/08/17 at 21:00; Stop 08/10/17 at 11:01; Status DC Info (Do NOT chart on this placeholder) 1 each 1X ONCE MC ; Start 08/09/17 at 10:00; Stop 08/09/17 at 10:01; Status UNV Pneumococcal Polyvalent Vaccine (Do NOT chart on this placeholder) 1 each 1X ONCE MC ; Start 08/09/17 at 10:00; Stop 08/09/17 at 10:01; Status UNV Influenza Virus Vaccine Quadrival (Fluarix Quad [id number] Syringe) 0.5 ml ONCE ONCE VAX IM Last administered on 08/10/17 14:36; Start 08/09/17 at 09:00; Stop 08/09/17 at 09:01; Status DC Albuterol/ Ipratropium (Duoneb) 3 ml 1X ONCE NEB ; Start 08/09/17 at 06:00; Stop 08/09/17 at 06:01; Status DC Albuterol/ Ipratropium (Duoneb) 3 ml RTQID NEB Last administered on 08/12/17 16:25; Start 08/09/17 at 08:00; Stop 08/12/17 at 17:35; Status DC Potassium Chloride/Dextrose/ Sod Cl 1,000 ml @ 75 mls/hr [id number] IV Last administered on 08/11/17 02:17; Start 08/09/17 at 08:30; Stop 08/11/17 at 12 :10; Status DC Midazolam HCl (Versed) 2 mg PRN 1X PRN IV PRIOR TO PROCEDURE; Start 08/09/17 at 09:45; Stop 08/10/17 at 09:44; Status DC Fentanyl Citrate (Fentanyl 2ml Vial) 25 mcg PRN Q5MIN PRN IV X 2 DOSES FOR PAIN ; Start 08/09/17 at 09:45; Stop 08/10/17 at 09:44; Status DC Fentanyl Citrate (Fentanyl 2ml Vial) 50 mcg PRN Q5MIN PRN IV X 2 DOSES FOR PAIN ; Start 08/09/17 at 09:45; Stop 08/10/17 at 09:44; Status DC Ringer's Solution 1,000 ml @ 125 mls/hr Q8H IV Last administered on 13:10; Start 08/09/17 at 09:45; Stop 08/09/17 at 21:44; Status DC Lidocaine HCl (Xylocaine-Mpf 1% Vial) 2 ml 1X PRN PRN ID IV START; Start 08/09 at 09:45; Stop 08/10/17 at 09:44; Status DC Fentanyl (Duragesic 25mcg/ Hr Patch) 1 patch Q3DAYS TD Last administered on 09:28; Start 08/09/17 at 12:00; Stop 08/12/17 at 17:35; Status DC Prednisone (Prednisone) 10 mg DAILY PO Last administered on 08/12/17 09:27; Start 08/09/17 at 13:00; Stop 08/12/17 at 17:35; Status DC Propofol 20 ml @ As Directed STK-MED ONCE IV ; Start 08/09/17 at 13:12; Stop 08/09/17 at 13:13; Status DC Lidocaine HCl (Lidocaine Pf 2% Vial) 5 ml STK-MED ONCE .ROUTE ; Start 08/09/17 at 13:13; Stop 08/09/17 at 13:14; Status DC Alprazolam (Xanax) 1 mg PRN Q6HRS PRN PO ANXIETY / AGITATION Last administered on 08/11/17 18:27; Start 08/09/17 at 15:45; Stop 08/12/17 at 17:35; Status DC Pregabalin (Lyrica) 25 mg [id number] PO Last administered on 08/12/17 15:35; Start 08/10/17 at 09:00; Stop 08/12/17 at 17:35; Status DC Pregabalin (Lyrica) 50 mg HS PO Last administered on 08/11/17 22:07; Start 08/09/17 at 21:00; Stop 08/12/17 at 17:35; Status DC Iron Sucrose 200 mg/Sodium Chloride 110 ml @ 55 mls/hr 1X ONCE IV Last administered on 08/10/17 09:48; Start 08/10/17 at 09:00; Stop 08/10/17 at 10 :59; Status DC Acetaminophen/ Hydrocodone Bitart (Lortab 7.5/325) 1 tab PRN Q6HRS PRN PO PAIN Last administered on 08/12/17 03:45; Start 08/10/17 at 10:15; Stop 08/12/17 at 17:35; Status DC Pantoprazole Sodium (Protonix) 40 mg BIDAC PO Last administered on 08/12/17 17:03; Start 08/10/17 at 16:30; Stop 08/12/17 at 17:35; Status DC Iron Sucrose 400 mg/Sodium Chloride 270 ml @ 90 mls/hr 1X ONCE IV Last administered on 08/11/17 13:05; Start 08/11/17 at 12:30; Stop 08/11/17 at 15 :29; Status DC Ferrous Sulfate (Feosol) 325 mg BIDWMEALS PO Last administered on 08/12/17 17 :03; Start 08/11/17 at 12:30; Stop 08/12/17 at 17:35; Status DC Ascorbic Acid (Vitamin C) 500 mg BID PO Last administered on 08/12/17 09:27; Start 08/11/17 at 12:30; Stop 08/12/17 at 17:35; Status DC Polyethylene Glycol (miraLAX PACKET) 17 gm PRN DAILY PRN PO CONSTIPATION; Start 08/12/17 at 11:15; Stop 08/12/17 at 17:35; Status DC Active Scripts Active Colace (Docusate Sodium) 100 Mg Capsule 100 Mg PO BID Reported Estrostep Fe-28 Tablet (Noreth A-Et Estra/Fe Fumarate) 1 Each Tablet 1 Each PO Albuterol Sulfate Conc Neb Soln (Albuterol Sulfate) 2.5 Mg/0.5 Ml Vial.neb 1 Vial NEB Q6HRS Flovent 100MCG Diskus (Fluticasone Propionate) 100 Mcg Disk.w.dev 1 Puff IH BID Probiotic (L.acidoph & Paracasei,B.lactis) 1 Each Capsule 1 Each PO Alprazolam 1 Mg Tablet 1 Mg PO PRN Q6HRS PRN Butrans (Buprenorphine) 1 Each Patch.tdwk 1 Patch TP WEEKLY Multi-Vitamin Daily (Multivitamin) 1 Each Tablet 1 Each PO QID Lyrica (Pregabalin) 50 Mg Capsule 50 Mg PO HS Lyrica (Pregabalin) 50 Mg Capsule 25 Mg PO [id number] Vitals/I & O Vital Sign - Last 24 Hours 08/11/17 08/11/17 08/11/17 08/11/17 19:00 19:58 20:10 21:40 Temp 98.9 98.9 Pulse 92 Resp 18 B/P (MAP) 143/84 (103) Pulse Ox 95 100 100 O2 Delivery Nasal Cannula Nasal Cannula Nasal Cannula Nasal Cannula O2 Flow Rate 2.0 1.0 1.5 1.5 08/11/17 08/11/17 08/12/17 08/12/17 22:45 23:00 03:00 03:45 Temp 98.1 98.1 98.1 98.1 Pulse 90 82 Resp 17 18 20 B/P (MAP) 129/82 (98) 134/78 (96) Pulse Ox 90 94 90 O2 Delivery Nasal Cannula Nasal Cannula Nasal Cannula O2 Flow Rate 2.0 2.0 1.5 08/12/17 08/12/17 08/12/17 08/12/17 04:46 07:00 08:00 08:09 Temp 98.1 98.1 Pulse 80 Resp 16 B/P (MAP) 125/68 (87) Pulse Ox 90 95 96 O2 Delivery Nasal Cannula Nasal Cannula Nasal Cannula Nasal Cannula O2 Flow Rate 1.5 2.0 1.0 1.0 08/12/17 08/12/17 08/12/17 08/12/17 09:28 11:00 11:32 13:34 Temp 97.9 97.9 Pulse 88 Resp 16 B/P (MAP) 131/77 (95) Pulse Ox 96 96 96 O2 Delivery Nasal Cannula Nasal Cannula Nasal Cannula Nasal Cannula O2 Flow Rate 1.0 2.0 1.0 1.0 08/12/17 08/12/17 15:00 16:26 Temp 98.2 98.2 Pulse 95 Resp 16 B/P (MAP) 138/77 (97) Pulse Ox 94 O2 Delivery Nasal Cannula Nasal Cannula O2 Flow Rate 2.0 1.0 DIMITRI RODRIGUEZ MD Aug 12, 2017 17:42
== END 2017-08-12 17:34 | disposition home health service (06) | DRG 377 ==
LOC: 4 NORTH 20:30
PROVIDERS: ADMIT Internal Medicine; ATTEND Internal Medicine
PROC: 30233N1 Transfusion of Nonautologous Red Blood Cells into Peripheral Vein, Percutaneous Approach (ICD-10-PCS; 2017-08-09)
PROC: 0DJ08ZZ Inspection of Upper Intestinal Tract, Via Natural or Artificial Opening Endoscopic (ICD-10-PCS; principal; 2017-08-09 14:00)
DX: K25.4 Chronic or unspecified gastric ulcer with hemorrhage (principal); E43 Unspecified severe protein-calorie malnutrition; D62 Acute posthemorrhagic anemia; J44.0 Chronic obstructive pulmonary disease with (acute) lower respiratory infection; Z99.81 Dependence on supplemental oxygen; K44.9 Diaphragmatic hernia without obstruction or gangrene; Z68.29 Body mass index [BMI] 29.0-29.9, adult; B19.20 Unspecified viral hepatitis C without hepatic coma; E87.6 Hypokalemia; F32.9 Major depressive disorder, single episode, unspecified; F41.9 Anxiety disorder, unspecified; I10 Essential (primary) hypertension; M06.9 Rheumatoid arthritis, unspecified; M15.9 Polyosteoarthritis, unspecified; M75.00 Adhesive capsulitis of unspecified shoulder; T39.395A Adverse effect of other nonsteroidal anti-inflammatory drugs [NSAID], initial encounter; Z87.891 Personal history of nicotine dependence; Z88.5 Allergy status to narcotic agent; Z90.49 Acquired absence of other specified parts of digestive tract; Z90.710 Acquired absence of both cervix and uterus; Z91.19 Patient's noncompliance with other medical treatment and regimen; Z96.653 Presence of artificial knee joint, bilateral; M79.7 Fibromyalgia; Z90.79 Acquired absence of other genital organ(s); Z90.722 Acquired absence of ovaries, bilateral; Z80.9 Family history of malignant neoplasm, unspecified; G89.29 Other chronic pain
CPT/HCPCS: 36415; 71010; 73030; 80053; 83605; 83735; 85014; 85018; 85025; 85651; 86140; 86850; 86900; 86901; 86920; 90686; 94250; 94640; 94760; C9113; J1756; J2704; J3010; J7030; J7040; J7042; J7050; J7120; J7512; J7620; P9016; 97110; 97116; J2001

== ENCOUNTER 2017-12-05 00:44 | Inpatient (IN) | payer MEDICARE, OTHER ==
[2017-12-05] MEDS ORDERED: PNEUMOCOCCAL VAX SCREEN BY RX. MC ×2 (01:45)
[2017-12-05] MEDS: ACETYLCYSTEINE IV ×3 (04:05→10:30)
[2017-12-05] MEDS: DEXTROSE 5% IV ×3 (04:05→10:30)
[2017-12-05] MEDS: IV NORMAL SALINE 1000ML BAG 1,000 ML IV ×4 (04:06→17:35)
[2017-12-05] MEDS: PROPOFOL 100 ML IV ×6 (05:59→22:42)
[2017-12-05 06:16] LABS: BASO % 0 % (0-3); EOS % 0 % (0-3); HEMATOCRIT 39.3 % (36.0-47.0); LYMPH # 0.3 x10^3/uL (1.0-4.8); LYMPH % 2 % (24-48); MEAN CORPUSCULAR HEMOGLOBIN 29 pg (25-35); MEAN CORPUSCULAR HGB CONC 33 g/dL (31-37); MEAN CORPUSCULAR VOLUME 89 fL (79-100); MONO # 0.1 x10^3/uL (0.0-1.1); MONO % 1 % (0-9); NEUT # 12.6 x10^3uL (1.8-7.7); NEUT % 96 % (31-73); PLATELET COUNT 171 x10^3/uL (140-400); RED BLOOD COUNT 4.43 x10^6/uL (3.50-5.40); RED CELL DISTRIBUTION WIDTH 14.6 % (11.5-14.5)
[2017-12-05 06:17] LABS: ADD MAN DIFF? YES
[2017-12-05 06:30] LABS: ALBUMIN 2.6 g/dL (3.4-5.0); ALK PHOS 49 U/L (46-116); ALT (SGPT) 32 U/L (14-59); AST (SGOT) 28 U/L (15-37); DIRECT BILIRUBIN 0.1 mg/dL (0.0-0.2); TOTAL BILIRUBIN 0.4 mg/dL (0.2-1.0); TOTAL PROTEIN 6.4 g/dL (6.4-8.2)
[2017-12-05] MEDS ORDERED: FUROSEMIDE 20 MG/2 ML VIAL. IVP ×2 (06:30)
[2017-12-05 06:34] LABS: ACETAMIN 12.6 mcg/ml (10-30)
[2017-12-05 07:38] LABS: % BANDS 19 % (0-9); % LYMPHS 1 % (24-48); % MONOS 1 % (0-10); % SEGS 79 % (35-66); ANISOCYTOSIS PRESENT; PLT ESTIMATE ADEQUATE (ADEQUATE)
[2017-12-05] MEDS: FAMOTIDINE 20 MG/2 ML VIAL IVP ×2 (09:00)
[2017-12-05] MEDS: PNEUMOC CONJ VACC 23-VALENT 0.5 ML VIAL. VAX IM ×2 (09:00)
[2017-12-05 09:20] LABS: BASE EXCESS ABG -3 mmol/L (-3-3); HCO3 ABG 22 mmol/L (21-28); PCO2 ABG 42 mmHg (35-46); PH ABG 7.34 (7.35-7.45); PO2 ABG 106 mmHg (65-108); SAT O2 ABG 98 % (92-99)
[2017-12-05 09:26] LABS: FIO2 ABG 50
[2017-12-05] MEDS: PIPERACILLIN/TAZOBACTAM 3.375 GM in IV NORMAL SALINE 50ML 50 ML IV ×3 (12:00→23:36)
[2017-12-05 17:11] LABS: MRSA BY PCR Negative (Negative)
[2017-12-05 19:27] LABS: ACETAMIN < 2 mcg/ml (10-30)
[2017-12-05 23:27] LABS: HEMATOCRIT 36.5 % (36.0-47.0); HEMOGLOBIN 12.5 g/dL (12.0-15.5); MEAN CORPUSCULAR HEMOGLOBIN 30 pg (25-35); MEAN CORPUSCULAR HGB CONC 34 g/dL (31-37); MEAN CORPUSCULAR VOLUME 87 fL (79-100); PLATELET COUNT 178 x10^3/uL (140-400); RED BLOOD COUNT 4.18 x10^6/uL (3.50-5.40); RED CELL DISTRIBUTION WIDTH 14.9 % (11.5-14.5)
[2017-12-06] MEDS: PROPOFOL 100 ML IV ×8 (02:41→21:58)
[2017-12-06] MEDS: PIPERACILLIN/TAZOBACTAM 3.375 GM in IV NORMAL SALINE 50ML 50 ML IV ×3 (05:02→17:57)
[2017-12-06 05:16] LABS: ADD MAN DIFF? NO
[2017-12-06] MEDS: IV NORMAL SALINE 1000ML BAG 1,000 ML IV ×2 (05:25)
[2017-12-06 05:42] LABS: BASO % 0 % (0-3); EOS % 0 % (0-3); HEMATOCRIT 37.5 % (36.0-47.0); HEMOGLOBIN 12.5 g/dL (12.0-15.5); LYMPH % 7 % (24-48); MEAN CORPUSCULAR HEMOGLOBIN 29 pg (25-35); MEAN CORPUSCULAR HGB CONC 33 g/dL (31-37); MEAN CORPUSCULAR VOLUME 88 fL (79-100); MONO # 0.8 x10^3/uL (0.0-1.1); MONO % 5 % (0-9); NEUT # 13.2 x10^3uL (1.8-7.7); NEUT % 87 % (31-73); PLATELET COUNT 172 x10^3/uL (140-400); RED BLOOD COUNT 4.27 x10^6/uL (3.50-5.40); RED CELL DISTRIBUTION WIDTH 14.6 % (11.5-14.5); WHITE BLOOD COUNT 15.1 x10^3/uL (4.0-11.0)
[2017-12-06 06:11] LABS: ALBUMIN 2.5 g/dL (3.4-5.0); ALBUMIN/GLOBULIN RATIO 0.7 (1.0-1.7); ALK PHOS 57 U/L (46-116); ALT (SGPT) 25 U/L (14-59); ANION GAP 9 (6-14); AST (SGOT) 23 U/L (15-37); BLOOD UREA NITROGEN 8 mg/dL (7-20); BUN/CREATININE RATIO 16 (6-20); CALCIUM 8.9 mg/dL (8.5-10.1); CARBON DIOXIDE 29 mmol/L (21-32); CHLORIDE 104 mmol/L (98-107); CREATININE 0.5 mg/dL (0.6-1.0); GFR 123.4; GLUCOSE 107 mg/dL (70-99); POTASSIUM 3.4 mmol/L (3.5-5.1); SODIUM 142 mmol/L (136-145); TOTAL BILIRUBIN 0.6 mg/dL (0.2-1.0)
[2017-12-06] MEDS: FAMOTIDINE 20 MG/2 ML VIAL IVP ×2 (08:52)
[2017-12-06] MEDS: PANTOPRAZOLE IV PUSH 40 MG VIAL. IVP ×4 (08:52→21:13)
[2017-12-06] MEDS: POTASSIUM CHLORIDE 20 MEQ/15 ML ORAL LIQUID. PEG ×2 (15:52)
[2017-12-06] MEDS: PREGABALIN 25 MG CAPSULE PO ×2 (15:53)
[2017-12-06 17:07] LABS: BASE EXCESS ABG 2 mmol/L (-3-3); HCO3 ABG 25 mmol/L (21-28); PCO2 ABG 34 mmHg (35-46); PH ABG 7.49 (7.35-7.45); PO2 ABG 79 mmHg (65-108); SAT O2 ABG 96 % (92-99)
[2017-12-06 17:08] LABS: FIO2 ABG 40
[2017-12-06] MEDS: ALBUTEROL SULFATE 2.5 MG/3 ML NEBU. NEB ×4 (17:10→19:38)
[2017-12-06] MEDS ORDERED: NON FORMULARY ITEM (Albuterol Sulfate (Albuterol Sulfate Conc Neb Soln) 1 VIAL) NEB ×2 (18:00)
[2017-12-06] MEDS: BUDESONIDE 0.5 MG/2 ML NEBU. NEB ×2 (19:38)
[2017-12-06] MEDS: fentaNYL PF VIAL 100 MCG/2 ML VIAL IV ×2 (20:11)
[2017-12-06] MEDS: CHLORHEXIDINE 0.12% 15 ML MOUTHWASH. MM ×2 (20:21)
[2017-12-06] MEDS ORDERED: NON FORMULARY ITEM (Fluticasone Propionate (Flovent 100MCG Diskus) 1 PUFF) IH ×2 (21:00)
[2017-12-06] MEDS: DOCUSATE 100 MG/10 ML SOLUTION. PO ×2 (21:12)
[2017-12-06] MEDS: ACETAMINOPHEN 650 MG/20.3 ML SOLUTION. FT ×2 (21:12)
[2017-12-06 21:37] LABS: BILIRUBIN,URINE NEGATIVE (NEG); CLARITY,URINE CLEAR; COLOR,URINE YELLOW; GLUCOSE,URINE NEGATIVE (NEG); NITRITE,URINE NEGATIVE (NEG); PROTEIN,URINE NEGATIVE (NEG-TRACE); UROBILINOGEN,URINE 0.2 mg/dL (0.2 mg/dL)
[2017-12-06] MEDS: VANCOMYCIN 2 GM in IV DEXTROSE 5% 500 ML IV (21:55)
[2017-12-06 21:56] LABS: BACTERIA,URINE 0 /HPF (0-FEW); RBC,URINE OCC /HPF (0-2); SQUAMOUS EPITHELIAL CELL,UR FEW /LPF; WBC,URINE OCC /HPF (0-4)
[2017-12-06] MEDS: VANCOMYCIN PER PHARMACY MC ×2 (22:37)
[2017-12-07] MEDS: PIPERACILLIN/TAZOBACTAM 3.375 GM in IV NORMAL SALINE 50ML 50 ML IV ×4 (00:10→18:05)
[2017-12-07] MEDS: PROPOFOL 100 ML IV ×8 (04:54→23:57)
[2017-12-07] MEDS: IV NORMAL SALINE 1000ML BAG 1,000 ML IV ×4 (04:55→08:38)
[2017-12-07 04:58] LABS: POC GLUCOSE 141 mg/dL (70-99)
[2017-12-07 06:50] LABS: POC GLUCOSE 127 mg/dL (70-99)
[2017-12-07 06:52] LABS: ADD MAN DIFF? NO
[2017-12-07 07:04] LABS: BASO % 0 % (0-3); EOS # 0.3 x10^3/uL (0.0-0.7); EOS % 2 % (0-3); HEMATOCRIT 36.4 % (36.0-47.0); HEMOGLOBIN 12.2 g/dL (12.0-15.5); LYMPH # 0.6 x10^3/uL (1.0-4.8); LYMPH % 4 % (24-48); MEAN CORPUSCULAR HEMOGLOBIN 29 pg (25-35); MEAN CORPUSCULAR HGB CONC 34 g/dL (31-37); MEAN CORPUSCULAR VOLUME 88 fL (79-100); MONO # 0.9 x10^3/uL (0.0-1.1); MONO % 6 % (0-9); NEUT % 89 % (31-73); PLATELET COUNT 143 x10^3/uL (140-400); RED BLOOD COUNT 4.15 x10^6/uL (3.50-5.40); RED CELL DISTRIBUTION WIDTH 14.9 % (11.5-14.5); WHITE BLOOD COUNT 15.8 x10^3/uL (4.0-11.0)
[2017-12-07 07:12] LABS: BASE EXCESS ABG 3 mmol/L (-3-3); HCO3 ABG 27 mmol/L (21-28); PCO2 ABG 36 mmHg (35-46); PH ABG 7.49 (7.35-7.45); PO2 ABG 136 mmHg (65-108); SAT O2 ABG 98 % (92-99)
[2017-12-07] MEDS: BUDESONIDE 0.5 MG/2 ML NEBU. NEB ×4 (07:16→19:50)
[2017-12-07] MEDS: ALBUTEROL SULFATE 2.5 MG/3 ML NEBU. NEB ×8 (07:16→19:50)
[2017-12-07 07:18] LABS: ALBUMIN 2.3 g/dL (3.4-5.0); ALBUMIN/GLOBULIN RATIO 0.6 (1.0-1.7); ALK PHOS 56 U/L (46-116); ALT (SGPT) 21 U/L (14-59); ANION GAP 6 (6-14); AST (SGOT) 17 U/L (15-37); BLOOD UREA NITROGEN 10 mg/dL (7-20); BUN/CREATININE RATIO 10 (6-20); CALCIUM 8.1 mg/dL (8.5-10.1); CARBON DIOXIDE 31 mmol/L (21-32); CHLORIDE 103 mmol/L (98-107); GFR 55.5; GLUCOSE 139 mg/dL (70-99); MAGNESIUM 1.7 mg/dL (1.8-2.4); POTASSIUM 3.2 mmol/L (3.5-5.1); SODIUM 140 mmol/L (136-145); TOTAL BILIRUBIN 1.4 mg/dL (0.2-1.0); TOTAL PROTEIN 6.2 g/dL (6.4-8.2)
[2017-12-07] MEDS: DOCUSATE 100 MG/10 ML SOLUTION. PO ×4 (07:58→21:00)
[2017-12-07 08:10] LABS: FIO2 ABG 40
[2017-12-07] MEDS: PANTOPRAZOLE IV PUSH 40 MG VIAL. IVP ×4 (08:38→20:40)
[2017-12-07] MEDS: ACETAMINOPHEN 650 MG/20.3 ML SOLUTION. FT ×2 (08:39)
[2017-12-07] MEDS: PREGABALIN 25 MG CAPSULE PO ×4 (08:39→14:07)
[2017-12-07] MEDS: fentaNYL PF VIAL 100 MCG/2 ML VIAL IV ×8 (08:39→21:07)
[2017-12-07] MEDS: POTASSIUM CHLORIDE 20 MEQ/15 ML ORAL LIQUID. PEG ×2 (08:39)
[2017-12-07] MEDS: CHLORHEXIDINE 0.12% 15 ML MOUTHWASH. MM ×4 (08:40→20:40)
[2017-12-07] MEDS: IOHEXOL 300 MG/ML 100ML VIAL. IV ×2 (08:45)
[2017-12-07] MEDS ORDERED: CONTRAST GIVEN MC ×2 (08:45)
[2017-12-07 10:49] LABS: INFLUENZA A PATIENT POSITIVE (NEGATIVE)
[2017-12-07 10:50] LABS: INFLUENZA B PATIENT POSITIVE (NEGATIVE)
[2017-12-07 10:51] LABS: OBC FLU VALID
[2017-12-07] MEDS ORDERED: OSELTAMIVIR 75 MG CAPSULE PO ×2 (14:00)
[2017-12-07] MEDS: OSELTAMIVIR 30 MG/5 ML ORAL.SUSP. PEG ×4 (14:07→20:40)
[2017-12-07] MEDS ORDERED: VANCOMYCIN 1.25 GM in IV NORMAL SALINE 250ML 250 ML IV (22:00)
[2017-12-08] MEDS: IV NORMAL SALINE 1000ML BAG 1,000 ML IV ×4 (00:04→12:46)
[2017-12-08] MEDS: PIPERACILLIN/TAZOBACTAM 3.375 GM in IV NORMAL SALINE 50ML 50 ML IV ×4 (00:04→17:36)
[2017-12-08 00:16] LABS: POC GLUCOSE 103 mg/dL (70-99)
[2017-12-08] MEDS: PROPOFOL 100 ML IV ×6 (04:13→11:06)
[2017-12-08] MEDS: DOCUSATE 100 MG/10 ML SOLUTION. PO ×4 (07:42→21:00)
[2017-12-08] MEDS: PANTOPRAZOLE IV PUSH 40 MG VIAL. IVP ×4 (08:15→21:17)
[2017-12-08] MEDS: OSELTAMIVIR 30 MG/5 ML ORAL.SUSP. PEG ×4 (08:17→21:18)
[2017-12-08] MEDS: POTASSIUM CHLORIDE 20 MEQ/15 ML ORAL LIQUID. PEG ×2 (08:17)
[2017-12-08] MEDS: PREGABALIN 25 MG CAPSULE PO ×4 (08:17→14:19)
[2017-12-08] MEDS: CHLORHEXIDINE 0.12% 15 ML MOUTHWASH. MM ×4 (08:19→21:17)
[2017-12-08 08:25] LABS: HEMATOCRIT 32.3 % (36.0-47.0); HEMOGLOBIN 10.7 g/dL (12.0-15.5); MEAN CORPUSCULAR HEMOGLOBIN 29 pg (25-35); MEAN CORPUSCULAR HGB CONC 33 g/dL (31-37); MEAN CORPUSCULAR VOLUME 89 fL (79-100); PLATELET COUNT 119 x10^3/uL (140-400); RED BLOOD COUNT 3.64 x10^6/uL (3.50-5.40); RED CELL DISTRIBUTION WIDTH 14.9 % (11.5-14.5); WHITE BLOOD COUNT 12.5 x10^3/uL (4.0-11.0)
[2017-12-08 08:37] LABS: ANION GAP 8 (6-14); BLOOD UREA NITROGEN 19 mg/dL (7-20); CALCIUM 8.3 mg/dL (8.5-10.1); CARBON DIOXIDE 27 mmol/L (21-32); CHLORIDE 110 mmol/L (98-107); CREATININE 1.4 mg/dL (0.6-1.0); GFR 37.6; GLUCOSE 107 mg/dL (70-99); POTASSIUM 3.4 mmol/L (3.5-5.1); SODIUM 145 mmol/L (136-145)
[2017-12-08] MEDS: BUDESONIDE 0.5 MG/2 ML NEBU. NEB ×4 (08:55→19:41)
[2017-12-08] MEDS: ALBUTEROL SULFATE 2.5 MG/3 ML NEBU. NEB ×8 (08:55→19:41)
[2017-12-08 09:11] LABS: BASE EXCESS ABG -2 mmol/L (-3-3); HCO3 ABG 24 mmol/L (21-28); PCO2 ABG 44 mmHg (35-46); PH ABG 7.36 (7.35-7.45); PO2 ABG 73 mmHg (65-108); SAT O2 ABG 94 % (92-99)
[2017-12-08 09:15] LABS: FIO2 ABG 40% vent
[2017-12-08] MEDS: MIDAZOLAM 100MG/100ML PREMIX 100 ML IV ×4 (11:43→17:39)
[2017-12-08] MEDS: POTASSIUM CHLORIDE 20 MEQ/15 ML ORAL LIQUID. FT ×2 (14:18)
[2017-12-08] MEDS: HEPARIN PF for SUB-Q USE 5,000 UNIT/0.5 ML VIAL. SQ ×4 (14:20→21:44)
[2017-12-09] MEDS: PIPERACILLIN/TAZOBACTAM 3.375 GM in IV NORMAL SALINE 50ML 50 ML IV ×4 (00:01→18:16)
[2017-12-09 00:23] LABS: POC GLUCOSE 94 mg/dL (70-99)
[2017-12-09] MEDS: IV NORMAL SALINE 1000ML BAG 1,000 ML IV ×4 (03:08→18:16)
[2017-12-09] MEDS: MIDAZOLAM 100MG/100ML PREMIX 100 ML IV ×6 (03:41→20:00)
[2017-12-09] MEDS: ACETAMINOPHEN 650 MG/20.3 ML SOLUTION. FT ×6 (04:13→20:00)
[2017-12-09 06:09] LABS: POC GLUCOSE 122 mg/dL (70-99)
[2017-12-09 06:14] LABS: ADD MAN DIFF? NO
[2017-12-09 06:16] LABS: BASO % 0 % (0-3); EOS # 0.3 x10^3/uL (0.0-0.7); EOS % 3 % (0-3); HEMATOCRIT 29.6 % (36.0-47.0); LYMPH # 0.5 x10^3/uL (1.0-4.8); LYMPH % 6 % (24-48); MEAN CORPUSCULAR HEMOGLOBIN 30 pg (25-35); MEAN CORPUSCULAR HGB CONC 34 g/dL (31-37); MEAN CORPUSCULAR VOLUME 90 fL (79-100); MONO # 0.9 x10^3/uL (0.0-1.1); MONO % 10 % (0-9); NEUT # 7.7 x10^3uL (1.8-7.7); NEUT % 81 % (31-73); PLATELET COUNT 134 x10^3/uL (140-400); RED CELL DISTRIBUTION WIDTH 14.5 % (11.5-14.5); WHITE BLOOD COUNT 9.5 x10^3/uL (4.0-11.0)
[2017-12-09] MEDS: HEPARIN PF for SUB-Q USE 5,000 UNIT/0.5 ML VIAL. SQ ×6 (06:17→21:29)
[2017-12-09 06:35] LABS: ANION GAP 9 (6-14); BLOOD UREA NITROGEN 19 mg/dL (7-20); CALCIUM 8.1 mg/dL (8.5-10.1); CARBON DIOXIDE 25 mmol/L (21-32); CHLORIDE 111 mmol/L (98-107); CREATININE 1.4 mg/dL (0.6-1.0); GFR 37.5; GLUCOSE 123 mg/dL (70-99); MAGNESIUM 1.9 mg/dL (1.8-2.4); PHOSPHORUS 3.6 mg/dL (2.6-4.7); POTASSIUM 3.9 mmol/L (3.5-5.1); SODIUM 145 mmol/L (136-145)
[2017-12-09] MEDS: ALBUTEROL SULFATE 2.5 MG/3 ML NEBU. NEB ×8 (07:40→19:40)
[2017-12-09] MEDS: BUDESONIDE 0.5 MG/2 ML NEBU. NEB ×4 (07:40→19:40)
[2017-12-09 08:12] LABS: BASE EXCESS ABG -2 mmol/L (-3-3); HCO3 ABG 24 mmol/L (21-28); PCO2 ABG 44 mmHg (35-46); PH ABG 7.35 (7.35-7.45); PO2 ABG 78 mmHg (65-108); SAT O2 ABG 95 % (92-99)
[2017-12-09 08:15] LABS: FIO2 ABG 40
[2017-12-09] MEDS: DOCUSATE 100 MG/10 ML SOLUTION. PO ×4 (09:00→21:00)
[2017-12-09] MEDS: PREGABALIN 25 MG CAPSULE PO ×4 (09:00→15:20)
[2017-12-09] MEDS: CHLORHEXIDINE 0.12% 15 ML MOUTHWASH. MM ×4 (09:00→20:30)
[2017-12-09] MEDS: PANTOPRAZOLE IV PUSH 40 MG VIAL. IVP ×4 (09:42→21:11)
[2017-12-09] MEDS: CIPROFLOXACIN 400MG PREMIX 200 ML IV ×4 (09:42→21:18)
[2017-12-09] MEDS: POTASSIUM CHLORIDE 20 MEQ/15 ML ORAL LIQUID. PEG ×2 (09:43)
[2017-12-09] MEDS: OSELTAMIVIR 30 MG/5 ML ORAL.SUSP. PEG ×4 (10:28→21:11)
[2017-12-09] MEDS ORDERED: CONTRAST GIVEN MC ×2 (11:30)
[2017-12-09] MEDS: IOHEXOL 240 MG/ML 50ML VIAL. PO ×2 (11:30)
[2017-12-09 18:26] LABS: POC GLUCOSE 82 mg/dL (70-99)
[2017-12-09 23:13] LABS: LEGIONELLA AG UR Negative (Negative)
[2017-12-10] MEDS: PIPERACILLIN/TAZOBACTAM 3.375 GM in IV NORMAL SALINE 50ML 50 ML IV ×4 (00:49→18:03)
[2017-12-10 00:55] LABS: POC GLUCOSE 95 mg/dL (70-99)
[2017-12-10] MEDS: HALOPERIDOL LACTATE 5 MG/ML VIAL. IVP ×6 (03:08→19:57)
[2017-12-10] MEDS: ACETAMINOPHEN 650 MG/20.3 ML SOLUTION. FT ×2 (04:18)
[2017-12-10] MEDS: MIDAZOLAM 100MG/100ML PREMIX 100 ML IV ×6 (06:06→22:07)
[2017-12-10] MEDS: HEPARIN PF for SUB-Q USE 5,000 UNIT/0.5 ML VIAL. SQ ×6 (06:12→22:09)
[2017-12-10 06:24] LABS: POC GLUCOSE 107 mg/dL (70-99)
[2017-12-10 06:25] LABS: ADD MAN DIFF? NO
[2017-12-10 06:29] LABS: BASO % 0 % (0-3); EOS # 0.3 x10^3/uL (0.0-0.7); EOS % 4 % (0-3); HEMATOCRIT 28.8 % (36.0-47.0); HEMOGLOBIN 9.6 g/dL (12.0-15.5); LYMPH # 0.5 x10^3/uL (1.0-4.8); LYMPH % 6 % (24-48); MEAN CORPUSCULAR HEMOGLOBIN 30 pg (25-35); MEAN CORPUSCULAR HGB CONC 33 g/dL (31-37); MEAN CORPUSCULAR VOLUME 89 fL (79-100); MONO # 0.8 x10^3/uL (0.0-1.1); MONO % 10 % (0-9); NEUT % 79 % (31-73); PLATELET COUNT 131 x10^3/uL (140-400); RED BLOOD COUNT 3.22 x10^6/uL (3.50-5.40); RED CELL DISTRIBUTION WIDTH 14.4 % (11.5-14.5); WHITE BLOOD COUNT 7.7 x10^3/uL (4.0-11.0)
[2017-12-10 06:41] LABS: ANION GAP 7 (6-14); BLOOD UREA NITROGEN 16 mg/dL (7-20); CALCIUM 7.9 mg/dL (8.5-10.1); CARBON DIOXIDE 26 mmol/L (21-32); CHLORIDE 112 mmol/L (98-107); CREATININE 1.2 mg/dL (0.6-1.0); GFR 44.8; GLUCOSE 125 mg/dL (70-99); SODIUM 145 mmol/L (136-145)
[2017-12-10 07:37] LABS: BASE EXCESS ABG -3 mmol/L (-3-3); HCO3 ABG 22 mmol/L (21-28); PCO2 ABG 40 mmHg (35-46); PH ABG 7.36 (7.35-7.45); PO2 ABG 88 mmHg (65-108); SAT O2 ABG 96 % (92-99)
[2017-12-10] MEDS: BUDESONIDE 0.5 MG/2 ML NEBU. NEB ×4 (07:47→19:46)
[2017-12-10] MEDS: ALBUTEROL SULFATE 2.5 MG/3 ML NEBU. NEB ×8 (07:47→19:46)
[2017-12-10] MEDS: IV NORMAL SALINE 1000ML BAG 1,000 ML IV ×4 (08:17→16:46)
[2017-12-10] MEDS: CHLORHEXIDINE 0.12% 15 ML MOUTHWASH. MM ×4 (08:26→21:00)
[2017-12-10] MEDS: DOCUSATE 100 MG/10 ML SOLUTION. PO ×4 (08:26→20:59)
[2017-12-10] MEDS: OSELTAMIVIR 30 MG/5 ML ORAL.SUSP. PEG ×4 (08:34→22:09)
[2017-12-10] MEDS: PREGABALIN 25 MG CAPSULE PO ×4 (08:34→14:47)
[2017-12-10] MEDS: CIPROFLOXACIN 400MG PREMIX 200 ML IV ×4 (08:35→20:59)
[2017-12-10] MEDS: POTASSIUM CHLORIDE 20 MEQ/15 ML ORAL LIQUID. PEG ×2 (08:35)
[2017-12-10] MEDS: PANTOPRAZOLE IV PUSH 40 MG VIAL. IVP ×4 (08:36→20:59)
[2017-12-10 08:51] LABS: FIO2 ABG 40
[2017-12-10 18:12] LABS: POC GLUCOSE 92 mg/dL (70-99)
[2017-12-10 22:12] LABS: C DIFF BY PCR Negative (Negative)
[2017-12-11] MEDS: PIPERACILLIN/TAZOBACTAM 3.375 GM in IV NORMAL SALINE 50ML 50 ML IV ×5 (00:04→23:32)
[2017-12-11] MEDS: HALOPERIDOL LACTATE 5 MG/ML VIAL. IVP ×12 (00:11→20:24)
[2017-12-11] MEDS: IV NORMAL SALINE 1000ML BAG 1,000 ML IV ×4 (02:28→19:28)
[2017-12-11] MEDS: HEPARIN PF for SUB-Q USE 5,000 UNIT/0.5 ML VIAL. SQ ×6 (05:39→22:13)
[2017-12-11 06:00] LABS: ADD MAN DIFF? NO
[2017-12-11 06:04] LABS: BASO # 0.1 x10^3/uL (0.0-0.2); BASO % 1 % (0-3); EOS # 0.3 x10^3/uL (0.0-0.7); EOS % 5 % (0-3); HEMATOCRIT 28.7 % (36.0-47.0); HEMOGLOBIN 9.3 g/dL (12.0-15.5); LYMPH # 0.5 x10^3/uL (1.0-4.8); LYMPH % 7 % (24-48); MEAN CORPUSCULAR HEMOGLOBIN 29 pg (25-35); MEAN CORPUSCULAR HGB CONC 32 g/dL (31-37); MEAN CORPUSCULAR VOLUME 90 fL (79-100); MONO # 0.6 x10^3/uL (0.0-1.1); MONO % 8 % (0-9); NEUT # 5.5 x10^3uL (1.8-7.7); NEUT % 79 % (31-73); PLATELET COUNT 138 x10^3/uL (140-400); RED BLOOD COUNT 3.18 x10^6/uL (3.50-5.40)
[2017-12-11 06:17] LABS: ANION GAP 7 (6-14); BLOOD UREA NITROGEN 17 mg/dL (7-20); CALCIUM 7.4 mg/dL (8.5-10.1); CARBON DIOXIDE 24 mmol/L (21-32); CHLORIDE 111 mmol/L (98-107); CREATININE 0.9 mg/dL (0.6-1.0); GFR 62.5; GLUCOSE 121 mg/dL (70-99); POTASSIUM 3.7 mmol/L (3.5-5.1); SODIUM 142 mmol/L (136-145)
[2017-12-11] MEDS: DOCUSATE 100 MG/10 ML SOLUTION. PO ×2 (07:53)
[2017-12-11] MEDS: CHLORHEXIDINE 0.12% 15 ML MOUTHWASH. MM ×4 (08:23→20:23)
[2017-12-11] MEDS: OSELTAMIVIR 30 MG/5 ML ORAL.SUSP. PEG ×4 (08:23→20:32)
[2017-12-11] MEDS: PANTOPRAZOLE IV PUSH 40 MG VIAL. IVP ×4 (08:24→20:24)
[2017-12-11] MEDS: POTASSIUM CHLORIDE 20 MEQ/15 ML ORAL LIQUID. PEG ×2 (08:24)
[2017-12-11] MEDS: CIPROFLOXACIN 400MG PREMIX 200 ML IV ×4 (08:25→20:31)
[2017-12-11] MEDS: PREGABALIN 25 MG CAPSULE PO ×4 (08:25→14:38)
[2017-12-11] MEDS: BUDESONIDE 0.5 MG/2 ML NEBU. NEB ×4 (09:10→20:15)
[2017-12-11] MEDS: ALBUTEROL SULFATE 2.5 MG/3 ML NEBU. NEB ×8 (09:10→20:15)
[2017-12-11 09:31] LABS: BASE EXCESS ABG -1 mmol/L (-3-3); HCO3 ABG 24 mmol/L (21-28); PCO2 ABG 42 mmHg (35-46); PH ABG 7.38 (7.35-7.45); PO2 ABG 82 mmHg (65-108); SAT O2 ABG 95 % (92-99)
[2017-12-11 09:37] LABS: FIO2 ABG 40
[2017-12-11] MEDS: MIDAZOLAM 100MG/100ML PREMIX 100 ML IV ×4 (10:01→19:28)
[2017-12-11] MEDS ORDERED: HALOPERIDOL LACTATE 5 MG/ML VIAL. IVP ×2 (14:00)
[2017-12-12] MEDS: HALOPERIDOL LACTATE 5 MG/ML VIAL. IVP ×8 (02:25→13:31)
[2017-12-12] MEDS: MIDAZOLAM 100MG/100ML PREMIX 100 ML IV ×4 (04:05→17:01)
[2017-12-12] MEDS: PIPERACILLIN/TAZOBACTAM 3.375 GM in IV NORMAL SALINE 50ML 50 ML IV ×4 (05:23→22:52)
[2017-12-12] MEDS: HEPARIN PF for SUB-Q USE 5,000 UNIT/0.5 ML VIAL. SQ ×6 (05:28→20:10)
[2017-12-12 05:40] LABS: ADD MAN DIFF? NO
[2017-12-12 05:42] LABS: BASO % 1 % (0-3); EOS # 0.3 x10^3/uL (0.0-0.7); EOS % 5 % (0-3); HEMATOCRIT 28.4 % (36.0-47.0); HEMOGLOBIN 9.4 g/dL (12.0-15.5); LYMPH # 0.5 x10^3/uL (1.0-4.8); LYMPH % 8 % (24-48); MEAN CORPUSCULAR HEMOGLOBIN 30 pg (25-35); MEAN CORPUSCULAR HGB CONC 33 g/dL (31-37); MEAN CORPUSCULAR VOLUME 89 fL (79-100); MONO # 0.6 x10^3/uL (0.0-1.1); MONO % 10 % (0-9); NEUT # 4.9 x10^3uL (1.8-7.7); NEUT % 76 % (31-73); PLATELET COUNT 148 x10^3/uL (140-400); RED CELL DISTRIBUTION WIDTH 14.1 % (11.5-14.5); WHITE BLOOD COUNT 6.4 x10^3/uL (4.0-11.0)
[2017-12-12 05:58] LABS: ANION GAP 5 (6-14); BLOOD UREA NITROGEN 16 mg/dL (7-20); CALCIUM 7.7 mg/dL (8.5-10.1); CARBON DIOXIDE 27 mmol/L (21-32); CHLORIDE 109 mmol/L (98-107); CREATININE 0.9 mg/dL (0.6-1.0); GFR 62.5; GLUCOSE 109 mg/dL (70-99); SODIUM 141 mmol/L (136-145)
[2017-12-12 05:59] LABS: POTASSIUM 4.1 mmol/L (3.5-5.1)
[2017-12-12] MEDS: CIPROFLOXACIN 400MG PREMIX 200 ML IV ×4 (08:28→20:08)
[2017-12-12] MEDS: PREGABALIN 25 MG CAPSULE PO ×4 (08:30→13:31)
[2017-12-12] MEDS: POTASSIUM CHLORIDE 20 MEQ/15 ML ORAL LIQUID. PEG ×2 (08:30)
[2017-12-12] MEDS: CHLORHEXIDINE 0.12% 15 ML MOUTHWASH. MM ×4 (08:30→20:08)
[2017-12-12] MEDS: PANTOPRAZOLE IV PUSH 40 MG VIAL. IVP ×4 (08:31→20:11)
[2017-12-12] MEDS: IV NORMAL SALINE 1000ML BAG 1,000 ML IV ×4 (08:31→20:09)
[2017-12-12] MEDS: BUDESONIDE 0.5 MG/2 ML NEBU. NEB ×6 (08:55→19:52)
[2017-12-12] MEDS: ALBUTEROL SULFATE 2.5 MG/3 ML NEBU. NEB ×10 (08:55→19:52)
[2017-12-12] MEDS: ACETAMINOPHEN 650 MG/20.3 ML SOLUTION. FT ×2 (09:26)
[2017-12-12] MEDS: OSELTAMIVIR 30 MG/5 ML ORAL.SUSP. PEG ×2 (09:27)
[2017-12-12 09:33] LABS: BASE EXCESS ABG -2 mmol/L (-3-3); HCO3 ABG 24 mmol/L (21-28); PCO2 ABG 42 mmHg (35-46); PH ABG 7.37 (7.35-7.45); PO2 ABG 59 mmHg (65-108); SAT O2 ABG 90 % (92-99)
[2017-12-12 09:38] LABS: FIO2 ABG 40
[2017-12-12] MEDS: PROPOFOL 100 ML IV ×2 (22:53)
[2017-12-13] MEDS: MIDAZOLAM 100MG/100ML PREMIX 100 ML IV ×2 (02:59)
[2017-12-13] MEDS: PROPOFOL 100 ML IV ×6 (02:59→19:47)
[2017-12-13] MEDS: PIPERACILLIN/TAZOBACTAM 3.375 GM in IV NORMAL SALINE 50ML 50 ML IV ×3 (05:30→18:33)
[2017-12-13] MEDS: HEPARIN PF for SUB-Q USE 5,000 UNIT/0.5 ML VIAL. SQ ×6 (05:31→22:11)
[2017-12-13 06:17] LABS: ADD MAN DIFF? NO
[2017-12-13 06:21] LABS: BASO % 1 % (0-3); EOS # 0.3 x10^3/uL (0.0-0.7); EOS % 6 % (0-3); HEMATOCRIT 28.5 % (36.0-47.0); HEMOGLOBIN 9.4 g/dL (12.0-15.5); LYMPH # 0.5 x10^3/uL (1.0-4.8); LYMPH % 9 % (24-48); MEAN CORPUSCULAR HEMOGLOBIN 29 pg (25-35); MEAN CORPUSCULAR HGB CONC 33 g/dL (31-37); MEAN CORPUSCULAR VOLUME 89 fL (79-100); MONO # 0.5 x10^3/uL (0.0-1.1); MONO % 10 % (0-9); NEUT # 3.8 x10^3uL (1.8-7.7); NEUT % 74 % (31-73); PLATELET COUNT 154 x10^3/uL (140-400); RED BLOOD COUNT 3.21 x10^6/uL (3.50-5.40); RED CELL DISTRIBUTION WIDTH 14.3 % (11.5-14.5); WHITE BLOOD COUNT 5.1 x10^3/uL (4.0-11.0)
[2017-12-13 06:51] LABS: ALBUMIN 1.7 g/dL (3.4-5.0); ALK PHOS 175 U/L (46-116); ALT (SGPT) 20 U/L (14-59); ANION GAP 3 (6-14); AST (SGOT) 23 U/L (15-37); BLOOD UREA NITROGEN 13 mg/dL (7-20); CALCIUM 7.9 mg/dL (8.5-10.1); CARBON DIOXIDE 29 mmol/L (21-32); CHLORIDE 110 mmol/L (98-107); CREATINE KINASE 38 U/L (26-192); DIRECT BILIRUBIN 0.4 mg/dL (0.0-0.2); GFR 55.3; GLUCOSE 112 mg/dL (70-99); POTASSIUM 3.6 mmol/L (3.5-5.1); SODIUM 142 mmol/L (136-145); TOTAL BILIRUBIN 0.5 mg/dL (0.2-1.0); TOTAL PROTEIN 5.8 g/dL (6.4-8.2)
[2017-12-13 06:54] LABS: FREE T4 0.85 ng/dL (0.76-1.46)
[2017-12-13 06:54] LABS: THYROID STIM HORMONE (TSH) 2.911 uIU/mL (0.358-3.74)
[2017-12-13 07:19] LABS: AMMONIA 28 mcmol/L (11-34)
[2017-12-13] MEDS: ALBUTEROL SULFATE 2.5 MG/3 ML NEBU. NEB ×8 (07:37→20:07)
[2017-12-13] MEDS: BUDESONIDE 0.5 MG/2 ML NEBU. NEB ×4 (07:37→20:07)
[2017-12-13 07:55] LABS: BASE EXCESS ABG 1 mmol/L (-3-3); HCO3 ABG 26 mmol/L (21-28); PCO2 ABG 45 mmHg (35-46); PH ABG 7.38 (7.35-7.45); PO2 ABG 103 mmHg (65-108); SAT O2 ABG 97 % (92-99)
[2017-12-13 07:58] LABS: FIO2 ABG 50
[2017-12-13 08:39] LABS: FOLATE 11.49 ng/ml (3.2-20.0)
[2017-12-13 08:39] LABS: VITAMIN-B12 1236 pg/mL (247-911)
[2017-12-13] MEDS: POTASSIUM CHLORIDE 20 MEQ/15 ML ORAL LIQUID. PEG ×2 (09:00)
[2017-12-13] MEDS: CHLORHEXIDINE 0.12% 15 ML MOUTHWASH. MM ×4 (09:11→21:13)
[2017-12-13] MEDS: PREGABALIN 25 MG CAPSULE PO ×4 (09:12→14:54)
[2017-12-13] MEDS: PANTOPRAZOLE IV PUSH 40 MG VIAL. IVP ×4 (09:13→21:14)
[2017-12-13] MEDS: ALTEPLASE 2 MG VIAL INT CAT ×2 (09:13)
[2017-12-13] MEDS: IV NORMAL SALINE 1000ML BAG 1,000 ML IV ×4 (11:12→19:57)
[2017-12-14] MEDS: PIPERACILLIN/TAZOBACTAM 3.375 GM in IV NORMAL SALINE 50ML 50 ML IV ×4 (00:10→17:52)
[2017-12-14] MEDS: PROPOFOL 100 ML IV ×10 (01:12→23:37)
[2017-12-14] MEDS: HEPARIN PF for SUB-Q USE 5,000 UNIT/0.5 ML VIAL. SQ ×6 (06:29→22:43)
[2017-12-14 06:36] LABS: ADD MAN DIFF? NO
[2017-12-14 06:45] LABS: BASO % 1 % (0-3); EOS # 0.3 x10^3/uL (0.0-0.7); EOS % 6 % (0-3); HEMATOCRIT 27.7 % (36.0-47.0); HEMOGLOBIN 9.4 g/dL (12.0-15.5); LYMPH # 0.7 x10^3/uL (1.0-4.8); LYMPH % 11 % (24-48); MEAN CORPUSCULAR HEMOGLOBIN 30 pg (25-35); MEAN CORPUSCULAR HGB CONC 34 g/dL (31-37); MEAN CORPUSCULAR VOLUME 88 fL (79-100); MONO # 0.5 x10^3/uL (0.0-1.1); MONO % 9 % (0-9); NEUT # 4.4 x10^3uL (1.8-7.7); NEUT % 74 % (31-73); PLATELET COUNT 173 x10^3/uL (140-400); RED BLOOD COUNT 3.14 x10^6/uL (3.50-5.40); RED CELL DISTRIBUTION WIDTH 13.9 % (11.5-14.5)
[2017-12-14 06:49] LABS: ANION GAP 7 (6-14); BLOOD UREA NITROGEN 12 mg/dL (7-20); CALCIUM 8.6 mg/dL (8.5-10.1); CARBON DIOXIDE 27 mmol/L (21-32); CHLORIDE 108 mmol/L (98-107); CREATININE 0.9 mg/dL (0.6-1.0); GFR 62.5; GLUCOSE 112 mg/dL (70-99); POTASSIUM 3.6 mmol/L (3.5-5.1); SODIUM 142 mmol/L (136-145)
[2017-12-14] MEDS: POTASSIUM CHLORIDE 20 MEQ/15 ML ORAL LIQUID. PEG ×2 (07:46)
[2017-12-14] MEDS: PANTOPRAZOLE IV PUSH 40 MG VIAL. IVP ×4 (07:46→20:45)
[2017-12-14] MEDS: PREGABALIN 25 MG CAPSULE PO ×4 (07:50→15:41)
[2017-12-14 08:09] LABS: BASE EXCESS ABG -1 mmol/L (-3-3); HCO3 ABG 24 mmol/L (21-28); PCO2 ABG 42 mmHg (35-46); PH ABG 7.38 (7.35-7.45); PO2 ABG 94 mmHg (65-108); SAT O2 ABG 96 % (92-99)
[2017-12-14] MEDS: ALBUTEROL SULFATE 2.5 MG/3 ML NEBU. NEB ×8 (08:43→19:16)
[2017-12-14] MEDS: BUDESONIDE 0.5 MG/2 ML NEBU. NEB ×4 (08:43→19:16)
[2017-12-14 10:14] LABS: FIO2 ABG 50
[2017-12-14] MEDS: CHLORHEXIDINE 0.12% 15 ML MOUTHWASH. MM ×4 (10:18→20:45)
[2017-12-14] MEDS: IV NORMAL SALINE 1000ML BAG 1,000 ML IV ×2 (10:19)
[2017-12-14] MEDS: ACETAMINOPHEN 650 MG/20.3 ML SOLUTION. FT ×2 (16:12)
[2017-12-14] MEDS: MICONAZOLE NITRATE 2% TOPICAL CREAM 28GM TUBE. TP ×4 (17:50→20:44)
[2017-12-15] MEDS: PIPERACILLIN/TAZOBACTAM 3.375 GM in IV NORMAL SALINE 50ML 50 ML IV ×2 (00:07→06:18)
[2017-12-15] MEDS: IV NORMAL SALINE 1000ML BAG 1,000 ML IV ×2 (03:22)
[2017-12-15] MEDS: PROPOFOL 100 ML IV ×4 (04:03→11:31)
[2017-12-15 06:13] LABS: ADD MAN DIFF? NO
[2017-12-15] MEDS: HEPARIN PF for SUB-Q USE 5,000 UNIT/0.5 ML VIAL. SQ ×6 (06:18→22:43)
[2017-12-15 06:22] LABS: BASO % 1 % (0-3); EOS # 0.3 x10^3/uL (0.0-0.7); EOS % 4 % (0-3); HEMATOCRIT 27.6 % (36.0-47.0); HEMOGLOBIN 9.3 g/dL (12.0-15.5); LYMPH # 0.8 x10^3/uL (1.0-4.8); LYMPH % 11 % (24-48); MEAN CORPUSCULAR HEMOGLOBIN 30 pg (25-35); MEAN CORPUSCULAR HGB CONC 34 g/dL (31-37); MEAN CORPUSCULAR VOLUME 88 fL (79-100); MONO # 0.4 x10^3/uL (0.0-1.1); MONO % 6 % (0-9); NEUT # 5.5 x10^3uL (1.8-7.7); NEUT % 78 % (31-73); PLATELET COUNT 172 x10^3/uL (140-400); RED BLOOD COUNT 3.14 x10^6/uL (3.50-5.40); RED CELL DISTRIBUTION WIDTH 13.8 % (11.5-14.5); WHITE BLOOD COUNT 7.1 x10^3/uL (4.0-11.0)
[2017-12-15 06:41] LABS: ALBUMIN 1.8 g/dL (3.4-5.0); ALBUMIN/GLOBULIN RATIO 0.4 (1.0-1.7); ALK PHOS 138 U/L (46-116); ALT (SGPT) 17 U/L (14-59); ANION GAP 9 (6-14); AST (SGOT) 22 U/L (15-37); BLOOD UREA NITROGEN 10 mg/dL (7-20); BUN/CREATININE RATIO 10 (6-20); CALCIUM 8.3 mg/dL (8.5-10.1); CARBON DIOXIDE 27 mmol/L (21-32); CHLORIDE 107 mmol/L (98-107); GFR 55.3; GLUCOSE 111 mg/dL (70-99); POTASSIUM 3.2 mmol/L (3.5-5.1); SODIUM 143 mmol/L (136-145); TOTAL BILIRUBIN 0.4 mg/dL (0.2-1.0); TOTAL PROTEIN 6.2 g/dL (6.4-8.2)
[2017-12-15] MEDS: ALBUTEROL SULFATE 2.5 MG/3 ML NEBU. NEB ×8 (07:24→19:22)
[2017-12-15] MEDS: BUDESONIDE 0.5 MG/2 ML NEBU. NEB ×4 (07:24→19:22)
[2017-12-15 07:41] LABS: BASE EXCESS ABG 3 mmol/L (-3-3); HCO3 ABG 27 mmol/L (21-28); PCO2 ABG 41 mmHg (35-46); PH ABG 7.44 (7.35-7.45); PO2 ABG 101 mmHg (65-108); SAT O2 ABG 97 % (92-99)
[2017-12-15 08:12] LABS: FIO2 ABG 40
[2017-12-15] MEDS: POTASSIUM CHLORIDE 20 MEQ/15 ML ORAL LIQUID. PEG ×4 (08:50→12:00)
[2017-12-15] MEDS: CHLORHEXIDINE 0.12% 15 ML MOUTHWASH. MM ×2 (08:50)
[2017-12-15] MEDS: PREGABALIN 25 MG CAPSULE PO ×4 (08:51→14:00)
[2017-12-15] MEDS: PANTOPRAZOLE IV PUSH 40 MG VIAL. IVP ×4 (08:56→21:33)
[2017-12-15] MEDS: MICONAZOLE NITRATE 2% TOPICAL CREAM 28GM TUBE. TP ×4 (08:57→21:33)
[2017-12-15] MEDS: MICAFUNGIN 100 MG in IV DEXTROSE 5% 100 ML IV (11:27)
[2017-12-15] MEDS: MEROPENEM 1 GM in IV NORMAL SALINE 100ML 100 ML IV ×2 (14:21→22:38)
[2017-12-15] MEDS: KETOROLAC 30 MG/ML INJ. IV ×2 (18:19)
[2017-12-15] MEDS: MORPHINE SULFATE 4 MG/ML DISP.SYRIN. IV ×6 (19:43→22:38)
[2017-12-16] MEDS: MORPHINE SULFATE 4 MG/ML DISP.SYRIN. IV ×8 (02:55→13:14)
[2017-12-16] MEDS: IV NORMAL SALINE 1000ML BAG 1,000 ML IV ×4 (05:32→14:18)
[2017-12-16] MEDS: MEROPENEM 1 GM in IV NORMAL SALINE 100ML 100 ML IV ×3 (05:32→22:57)
[2017-12-16] MEDS: HEPARIN PF for SUB-Q USE 5,000 UNIT/0.5 ML VIAL. SQ ×6 (05:33→23:03)
[2017-12-16] MEDS: ALBUTEROL SULFATE 2.5 MG/3 ML NEBU. NEB ×8 (08:35→19:55)
[2017-12-16] MEDS: BUDESONIDE 0.5 MG/2 ML NEBU. NEB ×4 (08:35→19:54)
[2017-12-16 08:58] LABS: BASE EXCESS ABG 2 mmol/L (-3-3); HCO3 ABG 26 mmol/L (21-28); PCO2 ABG 36 mmHg (35-46); PH ABG 7.47 (7.35-7.45); PO2 ABG 73 mmHg (65-108); SAT O2 ABG 94 % (92-99)
[2017-12-16] MEDS: PREGABALIN 25 MG CAPSULE PO ×4 (09:00→14:00)
[2017-12-16] MEDS: MICONAZOLE NITRATE 2% TOPICAL CREAM 28GM TUBE. TP ×4 (09:00→21:00)
[2017-12-16] MEDS: POTASSIUM CHLORIDE 20 MEQ/15 ML ORAL LIQUID. PEG ×2 (09:00)
[2017-12-16] MEDS: PANTOPRAZOLE IV PUSH 40 MG VIAL. IVP ×4 (09:46→20:10)
[2017-12-16] MEDS: MICAFUNGIN 100 MG in IV DEXTROSE 5% 100 ML IV (09:47)
[2017-12-16 10:33] LABS: FIO2 ABG 28
[2017-12-16] MEDS: MORPHINE SULFATE 10 MG/ML VIAL. IV ×4 (14:18→20:01)
[2017-12-17] MEDS: MORPHINE SULFATE 10 MG/ML VIAL. IV ×14 (00:31→21:15)
[2017-12-17] MEDS: hydrALAZINE 20 MG/ML VIAL. IVP ×4 (00:35→23:43)
[2017-12-17] MEDS: KETOROLAC 30 MG/ML INJ. IV ×2 (03:49)
[2017-12-17] MEDS: MEROPENEM 1 GM in IV NORMAL SALINE 100ML 100 ML IV ×3 (06:15→22:18)
[2017-12-17] MEDS: IV NORMAL SALINE 1000ML BAG 1,000 ML IV ×4 (06:15→09:28)
[2017-12-17] MEDS: HEPARIN PF for SUB-Q USE 5,000 UNIT/0.5 ML VIAL. SQ ×6 (06:23→21:49)
[2017-12-17] MEDS: BUDESONIDE 0.5 MG/2 ML NEBU. NEB ×4 (07:49→19:44)
[2017-12-17] MEDS: ALBUTEROL SULFATE 2.5 MG/3 ML NEBU. NEB ×8 (07:49→19:44)
[2017-12-17] MEDS: MICONAZOLE NITRATE 2% TOPICAL CREAM 28GM TUBE. TP ×4 (09:00→21:55)
[2017-12-17] MEDS: PREGABALIN 25 MG CAPSULE PO ×4 (09:00→14:00)
[2017-12-17] MEDS: POTASSIUM CHLORIDE 20 MEQ/15 ML ORAL LIQUID. PEG ×4 (09:00→11:00)
[2017-12-17] MEDS: MICAFUNGIN 100 MG in IV DEXTROSE 5% 100 ML IV (09:27)
[2017-12-17] MEDS: PANTOPRAZOLE IV PUSH 40 MG VIAL. IVP ×4 (09:28→21:38)
[2017-12-17] MEDS: FUROSEMIDE 40 MG/4 ML VIAL. IVP ×2 (10:47)
[2017-12-17] MEDS: POTASSIUM CL 30MEQ D5-0.45NACL 1,000 ML IV ×2 (15:27)
[2017-12-17 23:46] LABS: BILIRUBIN,URINE NEGATIVE (NEG); CLARITY,URINE CLEAR; COLOR,URINE YELLOW; GLUCOSE,URINE NEGATIVE (NEG); NITRITE,URINE NEGATIVE (NEG); PROTEIN,URINE 100 mg/dL (NEG-TRACE); UROBILINOGEN,URINE 0.2 mg/dL (0.2 mg/dL)
[2017-12-17 23:57] LABS: BACTERIA,URINE 0 /HPF (0-FEW); RBC,URINE >40 /HPF (0-2); WBC,URINE 20-40 /HPF (0-4)
[2017-12-17 23:58] LABS: HYALINE CASTS, URINE FEW /HPF; SQUAMOUS EPITHELIAL CELL,UR FEW /LPF
[2017-12-18] MEDS: MORPHINE SULFATE 10 MG/ML VIAL. IV ×16 (00:15→22:47)
[2017-12-18] MEDS: POTASSIUM CL 30MEQ D5-0.45NACL 1,000 ML IV ×4 (01:20→14:40)
[2017-12-18] MEDS: hydrALAZINE 20 MG/ML VIAL. IVP ×2 (03:52)
[2017-12-18] MEDS: MEROPENEM 1 GM in IV NORMAL SALINE 100ML 100 ML IV ×3 (05:30→21:50)
[2017-12-18] MEDS: HEPARIN PF for SUB-Q USE 5,000 UNIT/0.5 ML VIAL. SQ ×6 (05:35→22:55)
[2017-12-18] MEDS: BUDESONIDE 0.5 MG/2 ML NEBU. NEB ×4 (06:51→20:11)
[2017-12-18] MEDS: ALBUTEROL SULFATE 2.5 MG/3 ML NEBU. NEB ×8 (06:52→20:11)
[2017-12-18] MEDS: PANTOPRAZOLE IV PUSH 40 MG VIAL. IVP ×4 (08:59→21:40)
[2017-12-18] MEDS: MICONAZOLE NITRATE 2% TOPICAL CREAM 28GM TUBE. TP ×4 (09:00→21:51)
[2017-12-18] MEDS: PREGABALIN 25 MG CAPSULE PO ×4 (09:00→14:00)
[2017-12-18] MEDS: KETOROLAC 30 MG/ML INJ. IV ×2 (09:14)
[2017-12-18] MEDS: SCOPOLAMINE 1.5MG PATCH. TD ×2 (12:31)
[2017-12-19] MEDS: MORPHINE SULFATE 10 MG/ML VIAL. IV ×12 (00:11→22:11)
[2017-12-19] MEDS: KETOROLAC 30 MG/ML INJ. IV ×2 (02:26)
[2017-12-19] MEDS: POTASSIUM CL 30MEQ D5-0.45NACL 1,000 ML IV ×2 (04:27)
[2017-12-19] MEDS: MEROPENEM 1 GM in IV NORMAL SALINE 100ML 100 ML IV ×3 (05:00→22:10)
[2017-12-19] MEDS: HEPARIN PF for SUB-Q USE 5,000 UNIT/0.5 ML VIAL. SQ ×6 (05:06→22:14)
[2017-12-19] MEDS: BUDESONIDE 0.5 MG/2 ML NEBU. NEB ×4 (07:19→20:50)
[2017-12-19] MEDS: ALBUTEROL SULFATE 2.5 MG/3 ML NEBU. NEB ×8 (07:19→20:50)
[2017-12-19] MEDS: PANTOPRAZOLE IV PUSH 40 MG VIAL. IVP ×4 (08:44→20:38)
[2017-12-19] MEDS: MICONAZOLE NITRATE 2% TOPICAL CREAM 28GM TUBE. TP ×4 (09:00→20:43)
[2017-12-19] MEDS: PREGABALIN 25 MG CAPSULE PO ×4 (09:00→14:00)
[2017-12-19] MEDS: ACETAMINOPHEN 650 MG SUPP.RECT. PR ×2 (22:10)
[2017-12-20] MEDS: ACETAMINOPHEN 650 MG SUPP.RECT. PR ×2 (04:08)
[2017-12-20] MEDS: MORPHINE SULFATE 10 MG/ML VIAL. IV ×4 (04:10→11:10)
[2017-12-20] MEDS: MEROPENEM 1 GM in IV NORMAL SALINE 100ML 100 ML IV (06:34)
[2017-12-20] MEDS: HEPARIN PF for SUB-Q USE 5,000 UNIT/0.5 ML VIAL. SQ ×2 (06:37)
[2017-12-20] MEDS: ALBUTEROL SULFATE 2.5 MG/3 ML NEBU. NEB ×4 (07:46→11:36)
[2017-12-20] MEDS: BUDESONIDE 0.5 MG/2 ML NEBU. NEB ×2 (07:46)
[2017-12-20] MEDS: MICONAZOLE NITRATE 2% TOPICAL CREAM 28GM TUBE. TP ×2 (08:00)
[2017-12-20] MEDS: PANTOPRAZOLE IV PUSH 40 MG VIAL. IVP ×2 (11:15)
[2017-12-20] MEDS: hydrALAZINE 20 MG/ML VIAL. IVP ×2 (11:18)
[2017-12-20] MEDS: PREGABALIN 25 MG CAPSULE PO ×2 (11:21)
== END 2017-12-20 14:02 | disposition hospice, inpatient (51) | DRG 870 ==
LOC: 1 WEST ICU 00:44 → 5 SOUTH 12-16 16:03
PROVIDERS: Internal Medicine
PROC: 5A1955Z Respiratory Ventilation, Greater than 96 Consecutive Hours (ICD-10-PCS; principal; 2017-12-05)
PROC: 0BH17EZ Insertion of Endotracheal Airway into Trachea, Via Natural or Artificial Opening (ICD-10-PCS; 2017-12-05)
DX: A41.9 Sepsis, unspecified organism (principal); J96.01 Acute respiratory failure with hypoxia; J69.0 Pneumonitis due to inhalation of food and vomit; G92 Toxic encephalopathy; J44.0 Chronic obstructive pulmonary disease with (acute) lower respiratory infection; T39.1X1A Poisoning by 4-Aminophenol derivatives, accidental (unintentional), initial encounter; Z99.81 Dependence on supplemental oxygen; D64.9 Anemia, unspecified; E66.9 Obesity, unspecified; E87.6 Hypokalemia; F31.9 Bipolar disorder, unspecified; G47.33 Obstructive sleep apnea (adult) (pediatric); G89.29 Other chronic pain; J10.1 Influenza due to other identified influenza virus with other respiratory manifestations; J20.9 Acute bronchitis, unspecified; K21.9 Gastro-esophageal reflux disease without esophagitis; K28.9 Gastrojejunal ulcer, unspecified as acute or chronic, without hemorrhage or perforation; K40.90 Unilateral inguinal hernia, without obstruction or gangrene, not specified as recurrent; K44.9 Diaphragmatic hernia without obstruction or gangrene; M19.90 Unspecified osteoarthritis, unspecified site; F41.9 Anxiety disorder, unspecified; M06.9 Rheumatoid arthritis, unspecified; M79.7 Fibromyalgia; Z96.612 Presence of left artificial shoulder joint; Z96.653 Presence of artificial knee joint, bilateral; Z51.5 Encounter for palliative care; Z66 Do not resuscitate; Z79.891 Long term (current) use of opiate analgesic; Z80.3 Family history of malignant neoplasm of breast; Z87.11 Personal history of peptic ulcer disease; Z87.440 Personal history of urinary (tract) infections; Z87.891 Personal history of nicotine dependence; Z90.49 Acquired absence of other specified parts of digestive tract; Z90.710 Acquired absence of both cervix and uterus; Y92.89 Other specified places as the place of occurrence of the external cause
CPT/HCPCS: 36415; 36569; 36600; 70450; 71045; 71250; 74176; 80048; 80053; 80076; 81001; 82140; 82550; 82607; 82746; 82805; 82962; 83735; 84100; 84439; 84443; 85007; 85025; 85027; 87040; 87070; 87086; 87205; 87324; 87449; 87641; 87804; 87804-59; 93005; 94002; 94003; 94640; 94760; 97162-GP; C9113; J0132; J0360; J0744; J1630; J1885; J1940; J1956; J2020; J2060; J2185; J2248; J2250; J2270; J2543; J2704; J2997; J3010; J3370; J7030; J7613; J7626; S0028